=== PATIENT | female | born 1990 | race Caucasian/White ===

== ENCOUNTER → 2016-12-19 | Outpatient (CLI) | payer MEDICAID ==
[~2016-12-19] MED LIST: ACET-2303 PO; ACHD5005 PO; ACHYD1T PO; AMOX-355 PO; AMOX-358 PO; AMOX500C2 PO; CEFU250T PO; CEPH-507 PO; CEPH500C PO; CYCL10TA9 PO; DCS100C PO; DOCU100C37 PO; DOXY1TAB3 PO; FERR-57 PO; FRS325T PO; GFN600TCR PO; GUAI10SY4 GT; GUAI1TBM7 PO; HYDR-3714; HYDR-757 PO; HYOS0.1217 PO; IBP600T1 PO; IBP800T PO; IBUP-1780 PO; METR500T PO; METR500T21 PO; NAPR500T3 PO; NITR-65 PO; ONDA-42 SL; ONDAN4ODT PO; OSEL45CA PO; OSLT75C PO; OXYC-12 PO; OXYC-465 PO; OXYC-471 PO; PREN-37 PO; PREN1TAB14 PO; PREN1TAB25 PO; PREN1TAB39 PO; PRM25T PO; PS30T PO; RANI150T15 PO; SULF-222 PO; SULF1TAB38 PO; WEIGHT LOSS; ZLP10T PO
--- OUTSIDE RECORDS SUMMARY | 2016-12-19 09:34 | XMS REPORT | Continuity of Care Document ---
Author Author [facility] Organization [facility] Address Unknown Phone Unavailable Care Team Providers Care Mathematics Instructor Name Role Phone Batsheva Kilgore PCP [phone] Source Comments Some departments are not documenting in the electronic medical record. If you do not see the information that you expected, contact Release of Information in the Health Information Management department at [phone] for further assistance in locating additional records.[facility] Active Allergies and Adverse Reactions No Known Allergies Current Medications Prescription Sig. Disp. Refills Start End Date Status Date VIT Take by mouth. 12/07/19 Discontin CALC,IRON,FOLIC ( 17 ued VITAMIN PO) Active Problems Problem Noted Date Parotid neoplasm 09/28/2016 Most Recent Encounters Date Type Specialty Providers Description 12/20/2016 [facility] Adebayo Maya MD Parotid mass Encounter 12/07/2016 Hospital Radiology Adebayo Maya MD Encounter 12/07/2016 Office Visit Otolaryngology Adebayo Maya MD Parotid neoplasm (Primary Dx) 12/07/2016 Hospital Radiology Adebayo Maya MD Encounter 12/06/2016 Screening Form 12/04/2016 Orders Only Otolaryngology Adebayo Maya MD Parotid neoplasm (Primary Dx) 12/04/2016 Orders Only Otolaryngology Aliya Linares LPN Parotid neoplasm 10/10/2016 Orders Only Otolaryngology Adebayo Maya MD Parotid neoplasm (Primary Dx) 09/28/2016 [facility] Obstetrics Cali Vides MD Encounter 09/28/2016 Office Visit OtolaryngologAdebayo Dillon MD Parotid neoplasm (Primary Dx) 09/28/2016 Hospital Obstetrics Encounter 09/28/2016 Prep for Case Otolaryngology Adebayo Maya MD 09/26/2016 Ancillary Radiology Outpatient, Radiologist Diagnosis unknown Orders (Primary Dx) Social History Tobacco Use Types Packs/Day Years Used Date Former Smoker Smokeless Tobacco: Never Used Last Filed Vital Signs Vital Sign Reading Time Taken Blood Pressure 123/83 12/07/2016 3:37 PM [employer] Pulse 103 12/07/2016 3:37 PM [employer] Temperature - - Respiratory Rate - - Height 1.727 m (5' 8") 12/07/2016 3:37 PM [employer] Weight 137.893 kg (304 lb) 12/07/2016 3:37 PM [employer] Body Mass Index 46.23 12/07/2016 3:37 PM [employer] Oxygen Saturation 100% 09/28/2016 4:15 PM CDT Plan of Care Date Type Specialty Providers Description 12/20/2016 Surgery Adebayo Maya MD TOTAL PAROTIDECTOMY [address] [place] [address] [phone] (Fax) Health Maintenance Due Date Last Done Comments Physical (Comprehensive) 1999 Exam Hpv Vaccines (#1) 2003 Pertussis Vaccine 2003 Tetanus Vaccine 2009 Cervical Cancer Screening 2013 Influenza Vaccine 07/27/2016 Procedures from Last 3 Months Procedure Name Priority Date/Time Associated Diagnosis Comments PROCEDURES-SCAN 10/06/2016 Results for this 9:27 AM [employer] procedure are in the results section. PROCEDURES-SCAN 10/02/2016 Results for this 11:21 AM [employer] procedure are in the results section. PROCEDURES-SCAN 10/02/2016 Results for this 11:20 AM [employer] procedure are in the results section. 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 2.1.6 cm hypodense right thyroid nodule. Ultrasound could be obtained for further evaluation given size and patient age, if clinically indicated. Approved by Mu Perez M.D. on 12/07/2016 4:40 PM By my electronic signature, I attest that I have personally reviewed the images for this examination and formulated the interpretations and opinions expressed in this report Finalized by Srinivasan Mcneill M.D. on 12/07/2016 5:14 PM. Dictated by Mu Perez M.D. on 12/07/2016 3:[address] NECK W/CONTRAST Clinical Indication: Female, 26 years old.Parotid neoplasm. Technique: Multiple contiguous axial images were obtained through the neck follo wing the administration of Isovue IV contrast material. Post processing coronal and sagittal reconstruction images were made from the axial images. Comparison: None Findings: Brain and Orbits: Normal. Sinuses and Mastoids: Normal. Suprahyoid Neck: Normal nasal cavity, nasopharynx, oral cavity, oropharynx, parapharyngeal space, and retropharyngeal space. Infrahyoid Neck: Normal larynx, hypopharynx, and supraglottis. Lymph Nodes: There is mild prominence of a few scattered level 2 lymph nodes bilaterally, presumably reactive in nature. Parotid and Submandibular Glands: There is a large well-circumscribed heterogeneously enhancing mass within the central right parotid gland which measures 4.0cm transverse x 5.8 cm AP x 5.0 cm craniocaudal. The left parotid is normal in appearance. Thyroid: There is a hypodense thyroid nodule within the right inferior thyroid lobe which measures up to 1.6 cm. Vasculature: Normal. Osseous Structures: There is mild straightening of the normal cervical curvature. Thoracic inlet: Normal upper lungs and mediastinum. Procedure Note Interface, Radiant Results - Patti Dec 07, 2016 5:17 PM [address] CT NECK W/CONTRAST Clinical Indication: Female, 26 years old. Parotid neoplasm. Technique: Multiple contiguous axial images were obtained through the neck following the administration of Isovue IV contrast material. Post processing coronal and sagittal reconstruction images were made from the axial images. Comparison: None Findings: Brain and Orbits: Normal. Sinuses and Mastoids: Normal. Suprahyoid Neck: Normal nasal cavity, nasopharynx, oral cavity, oropharynx, parapharyngeal space, and retropharyngeal space. Infrahyoid Neck: Normal larynx, hypopharynx, and supraglottis. Lymph Nodes: There is mild prominence of a few scattered level 2 lymph nodes bilaterally, presumably reactive in nature. Parotid and Submandibular Glands: There is a large well-circumscribed heterogeneously enhancing mass within the central right parotid gland which measures 4.0 cm transverse x 5.8 cm AP x 5.0 cm craniocaudal. The left parotid is normal in appearance. Thyroid: There is a hypodense thyroid nodule within the right inferior thyroid lobe which measures up to 1.6 cm. Vasculature: Normal. Osseous Structures: There is mild straightening of the normal cervical curvature. Thoracic inlet: Normal upper lungs and mediastinum. IMPRESSION 1. 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 2. 1.6 cm hypodense right thyroid nodule. Ultrasound could be obtained for further evaluation given size and patient age, if clinically indicated. Approved by Mu Perez M.D. on 12/07/2016 4:40 PM By my electronic signature, I attest that I have personally reviewed the images for this examination and formulated the interpretations and opinions expressed in this report Finalized by Srinivasan Mcneill M.D. on 12/07/2016 5:14 PM. Dictated by Mu Perez M.D. on 12/07/2016 3:54 PM. CHEST 2 VIEWS (12/07/2016 3:00 PM) Impressions No acute cardiopulmonary abnormality. Approved by Bernadette Gamboa M.D. on 12/07/2016 4:17 PM By my electronic signature, I attest that I have personally reviewed the images for this examination and formulated the interpretations and opinions expressed in this report Finalized by Destiny Haines M.D. on 12/07/2016 4:30 PM. Dictated by Bernadette Gamboa M.D. on 12/07/2016 3:37 PM. Narrative CHEST 2 VIEWS Clinical Indication: Female, 26 years old. Parotid neoplasm Comparison: Same day CT neck Findings: The cardiac silhouette is within normal limits of size. There is no pulmonary vascular congestion. No pneumothorax, consolidating pneumonia or pleural effusion is identified. Procedure Note Interface, Radiant Results - Patti Dec 07, 2016 4:33 PM BOX [employer] CHEST 2 VIEWS Clinical Indication: Female, 26 years old. Parotid neoplasm Comparison: Same day CT neck Findings: The cardiac silhouette is within normal limits of size. There is no pulmonary vascular congestion. No pneumothorax, consolidating pneumonia or pleural effusion is identified. IMPRESSION No acute cardiopulmonary abnormality. Approved by Bernadette Gamboa M.D. on 12/07/2016 4:17 PM By my electronic signature, I attest that I have personally reviewed the images for this examination and formulated the interpretations and opinions expressed in this report Finalized by Destiny Haines M.D. on 12/07/2016 4:30 PM. Dictated by Bernadette Gamboa M.D. on 12/07/2016 3:37 PM. PROCEDURES-SCAN (10/06/2016 9:27 AM) Narrative Ordered by an unspecified provider. PROCEDURES-SCAN (10/02/2016 11:21 AM) Narrative Ordered by an unspecified provider. PROCEDURES-SCAN (10/02/2016 11:20 AM) Narrative Ordered by an unspecified provider. FINE NEEDLE ASPIRATE (FNA) (09/28/2016 3:30 PM) Component Value Range Cytology [facility] [email or web address] Flor Whyte MD, Director Cytopathology Department of Pathology and Laboratory Medicine [address] [place] [id number] Surgical Pathology Office: [phone] CYTOLOGY REPORT NAME: MARICEL VIVAR SURG PATH #: [id number] MR #: [id number] ALT ID #: [id number] #: [id number] LOCATION: [facility] [place] DATE OF PROCEDURE: 09/28/2016 AGE: 26 SEX: F DATE RECEIVED: 09/28/2016 : 1990 TIME RECEIVED: 15:30 PHYSICIAN: ADEBAYO MAYA DATE OF REPORT: 10/02/2016 COPY TO: DATE OF PRINTIN10/02/2016 Material Received: A: FNA Neck Mass-right paratid History: 26 year old woman with a right parotid mass. Gross Description: (3 pap, 3 dq, 1 Cell Block) FNA procedure was performed by the pathologist, FABIANA/SHER, and rapid determination of adequacy was performed by the pathologist, FABIANA/AF, on Diff-Quik stained slide(s). Passes 1 and 2 were adequate for evaluation. Pass three was not adequate for evaluation. ################################################## ###################### Final Diagnosis: A. Neck Mass-right parotid, FNA: Pleomorphic adenoma. Comment: FNA Procedure Notes: The FNA procedure was performed by Dr. Whyte and Dr. Lange. The staff pathologist, Dr. Whyte was present through the ojeda portions of the procedure. Prior to beginning the procedure, two of the patient's identifiers (medical record number, date of , or patient name) were confirmed in addition to the proposed site of the FNA. The FNA procedure was explained to the patient, and with her informed consent a limited physical examination and the FNA procedure were performed. 3 FNAs were performed on an approximately 6 cm mass using separate, sterile, 25 swg needles. The procedure was well tolerated and without complications. Estimated blood loss was negligible. Immediate evaluation of the air-dried, Diff-Quik stained slides showed smears that were adequate. The FNA adequacy assessment was performed by the staff pathologist Dr. Whyte: First pass - adequate; second pass adequate; third pass inadequate. Preliminary interpretation: Pleomorphic adenoma. The preliminary result was reported to Dr. Maya on site at 13:42 on 09/28/[address] Whyte. The Papanicolaou stained smears and cell block sections showed similar features. Attestation: By this signature, I attest that I have personally formulated the final interpretation expressed in this report and that the above diagnosis is based upon my examination of the slides and/or other material indicated in this report. +++Electronically Signed Out By+++ af/10/02/2016 Interpreted by: Flor Whyte MD, Attending Physician Bret Lange D.O. Fellow DIRECT EXAM (WET PREP) (09/28/2016 3:16 PM) Component Value Range Battery Name DIRECT EXAM,WET PREP Specimen Description VAGINAL Special Requests NONE Direct Exam NO YEAST SEEN NO CLUE CELLS SEEN NO TRICHOMONAS SEEN MANY NEUTROPHILS Report Status FINAL 09/28/2016 Specimen Vaginal PROTEIN/CR RATIO,UR RAN (09/28/2016 3:10 PM) Component Value Range Protein, Random 54 MG/DL Creatinine, Random 171 MG/DL Protein/CR ratio 0.3 URIC ACID (09/28/2016 3:10 PM) Component Value Range Uric Acid 2.4 2.0-7.0 MG/DL LDH-LACTATE DEHYDROGENASE (09/28/2016 3:10 PM) Component Value Range Lactate Dehydrogenase 172 100-210 U/L URINALYSIS, MICROSCOPIC (09/28/2016 3:10 PM) Component Value Range WBCs,UA 0-2 0-2 /HPF RBCs,UA 0-2 0-3 /HPF MucousUA TRACE Squamous Epithelial Cells 0-2 0-5 Calcium Oxalate Crystals MANY Specimen Urine URINALYSIS DIPSTICK (09/28/2016 3:10 PM) Component Value Range Color,UA YELLOW Turbidity,UA 1+ (A) CLEAR-CLEAR Specific Lincoln-Urine 1.027 1.003-1.035 pH,UA 5.0 5.0-8.0 Protein,UA 1+ (A) NEG-NEG Glucose,UA 2+ (A) NEG-NEG Ketones,UA NEG NEG-NEG Bilirubin,UA NEG NEG-NEG Blood,UA NEG NEG-NEG Urobilinogen,UA NORMAL NORM-NORMAL Nitrite,UA NEG NEG-NEG Leukocytes,UA NEG NEG-NEG Urine Ascorbic Acid, UA NEG NEG-NEG Specimen Urine BASIC METABOLIC PANEL (09/28/2016 3:10 PM) Component Value Range Sodium 134 (L) 137-147 MMOL/L Potassium 3.9 3.5-5.1 MMOL/L Chloride 103 98-110 MMOL/L CO2 23 21-30 MMOL/L Anion Gap 8 3-12 Glucose 92 70-100 MG/DL Blood Urea Nitrogen 8 7-25 MG/DL Creatinine 0.38 (L) 0.4-1.00 MG/DL Calcium 9.2 8.5-10.6 MG/DL eGFR Non >60Comment: >60 mL/min The eGFR is not validated for use in drug dosing adjustments. Continue to use estimated creatinine clearance per dosing reference text. Please contact the Clinical Pharmacist for questions. eGFR >60Comment: >60 mL/min The eGFR is not validated for use in drug dosing adjustments. Continue to use estimated creatinine clearance per dosing reference text. Please contact the Clinical Pharmacist for questions. Specimen Blood FREE T4 (FREE THYROXINE) ONLY (09/28/2016 3:10 PM) Component Value Range T4-Free 0.8 0.6-1.6 NG/DL Specimen Blood THYROID STIMULATING HORMONE-TSH (09/28/2016 3:10 PM) Component Value Range TSH 1.843 0.35-5.00 MCU/ML Specimen Blood CBC (09/28/2016 3:10 PM) Component Value Range White Blood Cells 13.8 (H) 4.5-11.0 K/UL RBC 4.33 4.0-5.0 M/UL Hemoglobin 11.4 (L) 12.0-15.0 GM/DL Hematocrit 34.3 (L) 36-45 % MCV 79.2 (L) 80-100 FL MCH 26.4 26-34 PG MCHC 33.4 32.0-36.0 G/DL RDW 13.8 11-15 % Platelet Count 241 150-400 K/UL MPV 9.4 7-11 FL Specimen Blood CULTURE-URINE W/SENSITIVITY (09/28/2016 3:10 PM) Component Value Range Battery Name URINE CULTURE Specimen Description URINE, STRAIGHT CATH Special Requests NONE Culture NO GROWTH Report Status FINAL 09/29/2016 Specimen Urine - Urine Straight Catheter CHLAM/NG PCR SWAB (09/28/2016 3:10 PM) Component Value Range Chlamydia Trachomatis NEGComment: NEG-NEG Probe The test method is amplified DNA PCR using [employer]. Please correlate results with the clinical status of the patient. N.Gonorrhea PCR NEG NEG-NEG Specimen Cervix POC GLUCOSE (09/28/2016 3:06 PM) Component Value Range Glucose, POC 79 70-100 MG/DL BLOOD BANK SAMPLE HOLD (09/28/2016 2:30 PM) Component Value Range BB Sample hold IN LAB
[2016-12-19 09:45] LABS: MEAN PLATELET VOLUME 10.2 FL (7.4-10.4); RED BLOOD COUNT 5.22 10^6/uL (4.35-5.85); WHITE BLOOD COUNT 7.2 10^3/uL (4.3-11.0)
[2016-12-19 10:02] LABS: INR 1.1 (0.8-1.4); PROTHROMBIN TIME PATIENT 13.7 SEC (12.2-14.7)
[2016-12-19 10:06] LABS: ALANINE AMINOTRANSFERASE 22 U/L (0-55); ANION GAP 9 MMOL/L (5-14); ASPARTATE AMINO TRANSFERASE 20 U/L (5-34); BILIRUBIN,TOTAL 0.3 MG/DL (0.1-1.0); BLOOD UREA NITROGEN 11 MG/DL (7-18); BUN/CREATININE RATIO 14; CALCIUM 9.3 MG/DL (8.5-10.1); CARBON DIOXIDE 24 MMOL/L (21-32); CHLORIDE 104 MMOL/L (98-107); CREATININE SERUM 0.78 MG/DL (0.60-1.30); GFR ESTIMATED > 60; GLUCOSE 90 MG/DL (70-105); POTASSIUM 3.9 MMOL/L (3.6-5.0); SODIUM 137 MMOL/L (135-145); TOTAL PROTEIN 7.1 G/DL (6.4-8.2)
== END ==
LOC: LAB 09:30
PROVIDERS: ATTEND Otolaryngology
DX: D49.0 Neoplasm of unspecified behavior of digestive system (principal)
CPT/HCPCS: 36415; 80053; 85027; 85610; 85730

== ENCOUNTER 2017-02-28 19:43 | Emergency (ER) | payer MEDICAID ==
[~2017-02-28] VITALS: Ht 172.7 cm; Wt 144.7 kg
--- NOTE | 2017-02-28 20:09 | ED EENT ---
History of Present Illness General Chief Complaint: Oral/Throat Problems Stated Complaint: FEVER,VOMITING Nursing Triage Note: C/O SORE THROAT WITH VOMITING Source: patient Exam Limitations: no limitations History of Present Illness Time seen by provider: 20:07 Initial Comments To ER with sore throat, vomiting, fever, stomach cramping since this morning. She is unable to eat or drink much due to the vomiting. She does also have a sore throat. Her son recently tested positive for strep and her is ill with similar symptoms. Timing/Duration: abrupt Severity: moderate Location: throat Associated Symptoms: No cough, fever, sore throat Allergies and Home Medications Allergies Coded Allergies: No Known Drug Allergies (Unverified , 07/11/10) Home Medications No Active Prescriptions or Reported Meds Review of Systems Constitutional: see HPI, chills, fever Eyes: No Symptoms Reported Ears: No Symptoms Reported Nose: no symptoms reported Mouth: no symptoms reported Throat: see HPI Respiratory: no symptoms reported Cardiovascular: no symptoms reported Musculoskeletal: no symptoms reported Skin: no symptoms reported Neurological: No Symptoms Reported Hematologic/Lymphatic: No Symptoms Reported Immunological/Allergic: no symptoms reported (all) Past Kgaitnn-Mjfjhl-Fqhhmj Hx Patient Social History Alcohol Use: Denies Use Recreational Drug Use: No Smoking Status: Never a Smoker Type Used: Cigarettes Recent Foreign Travel: No Contact w/Someone Who Travel: No Recent Infectious Disease Expo: No Recent Hopitalizations: No Immunizations Up To Date Tetanus Booster (TDap): Unknown PED Vaccines UTD: No Date of Influenza Vaccine: Aug 26, 2012 Seasonal Allergies Seasonal Allergies: No Surgeries HX Surgeries: Yes (LEFT SHOULDER 04/09 AND 2008, X 3) Surgeries: Adenoidectomy, Appendectomy, Section, Orthopedic, Tonsillectomy Respiratory Hx Respiratory Disorders: No Cardiovascular Hx Cardiac Disorders: No Neurological Hx Neurological Disorders: No Reproductive System Hx Reproductive Disorders: No Sexually Transmitted Disease: Yes (CHLAMYDIA 2009, Gonnerhea 2011, beginning of preg ) HIV/AIDS: No Female Reproductive Disorders: Denies Genitourinary Hx Genitourinary Disorders: No Gastrointestinal Hx Gastrointestinal Disorders: No Musculoskeletal Hx Musculoskeletal Disorders: Yes (LEFT SHOULDER PROBLEMS) Musculoskeletal Disorders: Arthritis Endocrine Hx Endocrine Disorders: No HEENT HX ENT Disorders: Yes (mass on rt cheek/jaw) Cancer Hx Cancer: No Psychosocial Hx Psychiatric Problems: No Integumentary HX Skin/Integumentary Disorder: No Blood Transfusions Hx Blood Disorders: No Adverse Reaction to a Blood Tr: No Family Medical History Significant Family History: No Pertinent Family Hx Family Medial History: Diabetes mellitus 19 FATHER 19 MOTHER Hypertension 19 MOTHER Physical Exam Vital Signs Vital Sign - Last 12Hours 02/28/17 20:01 Temp 100.7 Pulse 145 Resp 18 B/P (MAP) 112/96 Pulse Ox 96 O2 Delivery Room Air General Appearance: WD/WN, no apparent distress Eyes: bilateral eye EOMI, bilateral eye PERRL, bilateral eye normal inspection Ears: bilateral ear TM normal, bilateral ear auricle normal, bilateral ear canal normal Mouth/Throat: normal mouth inspection, other (Pharyngeal erythema. There is a healing incision over the right parotid gland without surrounding erythema) Neck: non-tender, full range of motion Cardiovascular: no murmur, tachycardia Gastrointestinal: normal bowel sounds, non tender, soft Neurologic/Psychiatric: alert, normal mood/affect, oriented x 3 Skin: normal color, warm/dry Progress/Results/Core Measures Results/Orders Lab Results Laboratory Tests Test 02/28/17 20:05 02/28/17 20:08 Range/Units White Blood Count 17.2 H 4.3-11.0 10^3/uL Red Blood Count 5.55 4.35-5.85 10^6/uL Hemoglobin 14.1 11.5-16.0 G/DL Hematocrit 43 35-52 % Mean Corpuscular Volume 77 L 80-99 FL Mean Corpuscular Hemoglobin 25 25-34 PG Mean Corpuscular Hemoglobin Concent 33 32-36 G/DL Red Cell Distribution Width 15.2 H 10.0-14.5 % Platelet Count 383 130-400 10^3/uL Mean Platelet Volume 10.4 7.4-10.4 FL Neutrophils (%) (Auto) 83 H 42-75 % Lymphocytes (%) (Auto) 9 L 12-44 % Monocytes (%) (Auto) 7 0-12 % Eosinophils (%) (Auto) 1 0-10 % Basophils (%) (Auto) 0 0-10 % Neutrophils # (Auto) 14.3 H 1.8-7.8 X 10^3 Lymphocytes # (Auto) 1.6 1.0-4.0 X 10^3 Monocytes # (Auto) 1.2 H 0.0-1.0 X 10^3 Eosinophils # (Auto) 0.2 0.0-0.3 10^3/uL Basophils # (Auto) 0.1 0.0-0.1 10^3/uL Group A Streptococcus Screen POSITIVE H NEGATIVE Micro Results Microbiology 02/28/17 Influenza Types A,B Antigen (AVILA) - Final, Complete My Orders Orders - LEEANN CHAVEZ APRN Cbc With Automated Diff (02/28/17 20:06) Basic Metabolic Panel (02/28/17 20:06) Rapid Strep A Screen (02/28/17 20:06) Influenza A And B Antigens (02/28/17 20:06) Saline Lock/Iv-Start (02/28/17 20:06) Ns Iv 1000 Ml (Sodium Chloride 0.9%) (02/28/17 20:15) Ondansetron Injection (Zofran Injectio (02/28/17 20:15) Ibuprofen Tablet (Motrin Tablet) (02/28/17 20:15) Hcg,Qualitative Serum (02/28/17 20:06) Manual Differential (02/28/17 20:05) Ua Culture If Indicated (02/28/17 20:26) Penicillin G Proc/Luis 1.2 Mu (Bicillin (02/28/17 20:45) Rx-Ondansetron Po (Rx-Zofran Po) (02/28/17 20:37) Medications Given in ED Current Medications Medications Dose Ordered Sig/Zeeshan Route Start Time Stop Time Status Last Admin Dose Admin Ibuprofen 800 mg ONCE ONCE PO 02/28/17 20:15 02/28/17 20:16 DC 02/28/17 20:12 800 MG Ondansetron HCl 4 mg ONCE ONCE IVP 02/28/17 20:15 02/28/17 20:16 DC 02/28/17 20:12 4 MG Vital Signs/I&O Vital Sign - Last 12Hours 02/28/17 20:01 Temp 100.7 Pulse 145 Resp 18 B/P (MAP) 112/96 Pulse Ox 96 O2 Delivery Room Air Blood Pressure Mean: 101 Departure Communication Progress Notes 2035-in reviewing the patient's previous hospitalizations it was noted that she was tachycardic with a heart rate from 95-115 consistently on multiple visits. Impression Impression: Primary Impression: Streptococcal sore throat Disposition: HOME, SELF-CARE Condition: Stable (4) Departure-Patient Inst. Decision time for Depature: 20:36 Referrals: NO,LOCAL PHYSICIAN (PCP/Family) Primary Care Physician Patient Instructions: Strep Throat (DC) Add. Discharge Instructions: 1. Tylenol and Motrin for fever and pain 2. Drink plenty of fluids 3. Nausea medication as needed 4. Follow-up with your doctor later this week 5. Return to ER for any worsening such as high fever or any other worsening symptoms All discharge instructions reviewed with patient and/or family. Voiced understanding. Scripts No Active Prescriptions or Reported Meds Copy Copies To 1: JAKE AGUIAR MD, PETER J APRN Feb 28, 2017 20:09
[2017-02-28 20:12] LABS: BASOPHILS # (AUTO) 0.1 10^3/uL (0.0-0.1); BASOPHILS % (AUTO) 0 % (0-10); EOSINOPHILS # (AUTO) 0.2 10^3/uL (0.0-0.3); EOSINOPHILS % (AUTO) 1 % (0-10); LYMPHOCYTES # (AUTO) 1.6 X 10^3 (1.0-4.0); LYMPHOCYTES % (AUTO) 9 % (12-44); MEAN CORPUSCULAR HEMOGLOBIN 25 PG (25-34); MEAN CORPUSCULAR HGB CONC 33 G/DL (32-36); MEAN CORPUSCULAR VOLUME 77 FL (80-99); MEAN PLATELET VOLUME 10.4 FL (7.4-10.4); MONOCYTES # (AUTO) 1.2 X 10^3 (0.0-1.0); MONOCYTES % (AUTO) 7 % (0-12); NEUTROPHILS # (AUTO) 14.3 X 10^3 (1.8-7.8); NEUTROPHILS % (AUTO) 83 % (42-75); PLATELET COUNT 383 10^3/uL (130-400); RED BLOOD COUNT 5.55 10^6/uL (4.35-5.85); RED CELL DISTRIBUTION WIDTH 15.2 % (10.0-14.5); WHITE BLOOD COUNT 17.2 10^3/uL (4.3-11.0)
[2017-02-28] MEDS ORDERED: IBUPROFEN 800 MG (MOTRIN) TAB PO ONE (20:15)
[2017-02-28] MEDS ORDERED: ONDANSETRON 4 MG/2 ML (SDV) Z0FRAN IVP ONE (20:15)
[2017-02-28] MEDS ORDERED: NS IV 1000 ML 1,000 ML IV SCH (20:15)
[2017-02-28] MEDS ORDERED: RX-ONDANSETRON 4 MG ODT (ZOFRAN) PPK #4 PO STA (20:37)
[2017-02-28] MEDS ORDERED: PEN G PROC/BENZATH 1.2 M UNITS (BICILLIN C-R) SYR IM ONE (20:45)
[2017-02-28 20:46] LABS: ANION GAP 10 MMOL/L (5-14); BAND NEUTROPHILS 0 %; BASOPHILS % (MANUAL) 0 %; BLOOD UREA NITROGEN 16 MG/DL (7-18); BUN/CREATININE RATIO 19; CALCIUM 9.7 MG/DL (8.5-10.1); CARBON DIOXIDE 24 MMOL/L (21-32); CHLORIDE 106 MMOL/L (98-107); CREATININE SERUM 0.84 MG/DL (0.60-1.30); EOSINOPHILS % (MANUAL) 0 %; GFR ESTIMATED > 60; GLUCOSE 106 MG/DL (70-105); LYMPHOCYTES % (MANUAL) 11 %; NEUTROPHILS % (MANUAL) 87 %; POTASSIUM 3.9 MMOL/L (3.6-5.0); SODIUM 140 MMOL/L (135-145)
[2017-02-28 21:02] VITALS: BP 108/94
--- OUTSIDE RECORDS SUMMARY | 2017-04-01 18:13 | XMS REPORT | Continuity of Care Document ---
Author Author [facility] Organization [facility] Address Unknown Phone Unavailable Care Team Providers Care Child And Adolescent Therapist Name Role Phone Batsheva Kilgore PCP [phone] Source Comments Some departments are not documenting in the electronic medical record. If you do not see the information that you expected, contact Release of Information in the Health Information Management department at [phone] for further assistance in locating additional records.[facility] Active Allergies and Adverse Reactions No Known Allergies Current Medications Prescription Sig. Disp. Refills Start End Date Status Date VIT Take 1 Tab by mouth. Active CALC,IRON,FOLIC ( VITAMIN PO) acetaminophen (TYLENOL) Take 2 Tabs by mouth 60 Tab 3 12/21/19 Active 325 mg tablet every 4 hours as needed. 17 HYDROcodone/acetaminophen Take 1-2 Tabs by mouth 40 Tab 0 12/21/19 Active (NORCO) 5/325 mg tablet every 6 hours as needed 17 for Pain Earliest Fill Date: 12/21/16 ofloxacin(+) (FLOXIN) 0.3 Instill 4 drops into the 10 mL 0 12/21/19 Active % ophthalmic solution right EAR twice a day 17 for 5 days. 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 Parotid mass 12/20/2016 Parotid neoplasm 09/28/2016 Social History Tobacco Use Types Packs/Day Years Used Date Former Smoker Smokeless Tobacco: Never Used Last Filed Vital Signs Vital Sign Reading Time Taken Blood Pressure 126/88 12/26/2016 9:53 AM PLASTIC CUTTER Pulse 96 12/26/2016 9:53 AM PLASTIC CUTTER Temperature 36.9 C (98.4 F) 12/21/2016 7:00 AM PLASTIC CUTTER Respiratory Rate - - Height 1.727 m (5' 8") 12/26/2016 9:53 AM PLASTIC CUTTER Weight 137.712 kg (303 lb 9.6 12/26/2016 9:53 AM PLASTIC CUTTER oz) Body Mass Index 46.17 12/26/2016 9:53 AM PLASTIC CUTTER Oxygen Saturation 99% 12/21/2016 7:00 AM PLASTIC CUTTER Plan of Care Health Maintenance Due Date Last Done Comments Physical (Comprehensive) 1999 Exam Hpv Vaccines (#1) 2003 Pertussis Vaccine 2003 Tetanus Vaccine 2009 Cervical Cancer Screening 2013 Influenza Vaccine 07/27/2017 Results from Last 3 Months * PATHOLOGY INTEROPERATIVE REPORT SCAN (01/03/2017 1:51 PM) Narrative Ordered by an unspecified provider.
--- OUTSIDE RECORDS SUMMARY | 2017-04-01 18:14 | XMS REPORT | Continuity of Care Document ---
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 detection by automated test strip 1+ NEGATIVE Urine nitrite detection by test strip NEGATIVE NEGATIVE Urine total bilirubin detection by test strip 1+ NEGATIVE Urine urobilinogen measurement by automated test strip (mass/volume) 4 mg/dL NORMAL Urine leukocyte esterase detection by dipstick 3+ NEGATIVE Automated urine sediment erythrocyte count by microscopy (number/high power field) [HPF] NRG Automated urine sediment leukocyte count by microscopy (number/high power field ) [HPF] NRG Bacteria detection in urine sediment by light microscopy MODERATE NRG Squamous epithelial cells detection in urine sediment by light microscopy 25-50 NRG Crystals detection in urine sediment by light microscopy NONE NRG Casts detection in urine sediment by light microscopy NONE NRG Mucus detection in urine sediment by light microscopy NEGATIVE NRG Complete urinalysis with reflex to culture NO NRG Comprehensive metabolic panel - 10/25/16 13:35 Serum or plasma sodium measurement (moles/volume) 134 mmol/ L 135-145 Serum or plasma potassium measurement (moles/volume) 3.7 mmol/L 3.6-5.0 Serum or plasma chloride measurement (moles/volume) 105 mmol /L 98-107 Carbon dioxide 21 mmol/L 21-32 Serum or plasma anion gap determination (moles/volume) 8 mmol/L 5-14 Serum or plasma urea nitrogen measurement (mass/volume) 5 mg /dL 7-18 Serum or plasma creatinine measurement (mass/volume) 0.56 mg /dL 0.60-1.30 Serum or plasma urea nitrogen/creatinine mass ratio 9 NRG Serum or plasma creatinine measurement with calculation of estimated glomerular filtration rate > NRG Serum or plasma glucose measurement (mass/volume) 96 mg/dL 70-105 Serum or plasma calcium measurement (mass/volume) 9.1 mg/dL 8.5-10.1 Serum or plasma total bilirubin measurement (mass/volume) 0.5 mg/dL 0.1-1.0 Serum or plasma alkaline phosphatase measurement (enzymatic activity/volume) 139 U/L 40-136 Serum or plasma aspartate aminotransferase measurement (enzymatic activity/ volume) 15 U/L 5-34 Serum or plasma alanine aminotransferase measurement (enzymatic activity/volume ) 10 U/L 0-55 Serum or plasma protein measurement (mass/volume) 6.2 g/dL 6.4-8.2 Serum or plasma albumin measurement (mass/volume) 3.0 g/dL 3.2-4.5 Serum or plasma uric acid measurement (mass/volume) - 10/25/16 13:35 Serum or plasma uric acid measurement (mass/volume) 3.0 mg/ dL 2.6-7.2 Lactate dehydrogenase 1 [enzymatic activity/volume] in serum or plasma - 13:35 Lactate dehydrogenase 1 [enzymatic activity/volume] in serum or plasma 153 U/L 125-220 Urine protein/creatinine mass ratio - 10/25/16 13:35 Urine protein measurement (mass/volume) 47 mg/dL 6-12 Urine creatinine measurement (mass/volume) 179 mg/dL 30-125 Urine protein/creatinine mass ratio 0.26 NRG Bacterial urine culture - 10/25/16 13:35 URINE CULTURE RESULTS <10,000/ML NRG Streptococcus agalactiae detection by organism specific culture - 10/25/16 17: 50 Complete blood count (CBC) with automated white blood cell (WBC) differential - 10/26/16 08:00 Blood leukocytes automated count (number/volume) 11.1 10*3/ uL 4.3-11.0 Blood erythrocytes automated count (number/volume) 4.06 10*6 /uL 4.35-5.85 Venous blood hemoglobin measurement (mass/volume) 10.2 g/dL 11.5-16.0 Blood hematocrit (volume fraction) 32 % 35-52 Automated erythrocyte mean corpuscular volume 78 [foz_us] 80-99 Automated erythrocyte mean corpuscular hemoglobin (mass per erythrocyte) 25 pg 25-34 Automated erythrocyte mean corpuscular hemoglobin concentration measurement ( mass/volume) 32 g/dL 32-36 Automated erythrocyte distribution width ratio 14.5 % 10.0-14.5 Automated blood platelet count (count/volume) 224 10*3/uL 130-400 Automated blood platelet mean volume measurement 11.3 [foz_ us] 7.4-10.4 Automated blood neutrophils/100 leukocytes 82 % 42-75 Automated blood lymphocytes/100 leukocytes 13 % 12-44 Blood monocytes/100 leukocytes 5 % 0-12 Automated blood eosinophils/100 leukocytes 1 % 0-10 Automated blood basophils/100 leukocytes 0 % 0-10 Blood neutrophils automated count (number/volume) 9.0 10*3 1.8-7.8 Blood lymphocytes automated count (number/volume) 1.4 10*3 1.0-4.0 Blood monocytes automated count (number/volume) 0.5 10*3 0.0-1.0 Automated eosinophil count 0.1 10*3/uL 0.0-0.3 Automated blood basophil count (count/volume) 0.0 10*3/uL 0.0-0.1 Urine protein/creatinine mass ratio - 10/26/16 08:00 Urine protein measurement (mass/volume) 14 mg/dL 6-12 Urine creatinine measurement (mass/volume) 50 mg/dL 30-125 Urine protein/creatinine mass ratio 0.28 NR Comprehensive metabolic panel - 10/26/16 08:00 Serum or plasma sodium measurement (moles/volume) 137 mmol/ L 135-145 Serum or plasma potassium measurement (moles/volume) 3.8 mmol/L 3.6-5.0 Serum or plasma chloride measurement (moles/volume) 107 mmol /L 98-107 Carbon dioxide 19 mmol/L 21-32 Serum or plasma anion gap determination (moles/volume) 11 mmol/L 5-14 Serum or plasma urea nitrogen measurement (mass/volume) 4 mg /dL 7-18 Serum or plasma creatinine measurement (mass/volume) 0.59 mg /dL 0.60-1.30 Serum or plasma urea nitrogen/creatinine mass ratio 7 NRG Serum or plasma creatinine measurement with calculation of estimated glomerular filtration rate > NRG Serum or plasma glucose measurement (mass/volume) 127 mg/dL 70-105 Serum or plasma calcium measurement (mass/volume) 9.1 mg/dL 8.5-10.1 Serum or plasma total bilirubin measurement (mass/volume) 0.4 mg/dL 0.1-1.0 Serum or plasma alkaline phosphatase measurement (enzymatic activity/volume) 138 U/L 40-136 Serum or plasma aspartate aminotransferase measurement (enzymatic activity/ volume) 17 U/L 5-34 Serum or plasma alanine aminotransferase measurement (enzymatic activity/volume ) 8 U/L 0-55 Serum or plasma protein measurement (mass/volume) 6.3 g/dL 6.4-8.2 Serum or plasma albumin measurement (mass/volume) 2.9 g/dL 3.2-4.5 Lactate dehydrogenase 1 [enzymatic activity/volume] in serum or plasma - 08:00 Lactate dehydrogenase 1 [enzymatic activity/volume] in serum or plasma 147 U/L 125-220 Urine protein/creatinine mass ratio - 10/27/16 08:51 Urine protein measurement (mass/volume) 60 mg/dL 6-12 Urine creatinine measurement (mass/volume) 160 mg/dL 30-125 Urine protein/creatinine mass ratio 0.38 NRG Complete blood count (CBC) with automated white blood cell (WBC) differential - 10/27/16 13:44 Blood leukocytes automated count (number/volume) 12.8 10*3/ uL 4.3-11.0 Blood erythrocytes automated count (number/volume) 3.85 10*6 /uL 4.35-5.85 Venous blood hemoglobin measurement (mass/volume) 9.7 g/dL 11.5-16.0 Blood hematocrit (volume fraction) 30 % 35-52 Automated erythrocyte mean corpuscular volume 78 [foz_us] 80-99 Automated erythrocyte mean corpuscular hemoglobin (mass per erythrocyte) 25 pg 25-34 Automated erythrocyte mean corpuscular hemoglobin concentration measurement ( mass/volume) 32 g/dL 32-36 Automated erythrocyte distribution width ratio 14.5 % 10.0-14.5 Automated blood platelet count (count/volume) 260 10*3/uL 130-400 Automated blood platelet mean volume measurement 10.7 [foz_ us] 7.4-10.4 Automated blood neutrophils/100 leukocytes 68 % 42-75 Automated blood lymphocytes/100 leukocytes 21 % 12-44 Blood monocytes/100 leukocytes 11 % 0-12 Automated blood eosinophils/100 leukocytes 1 % 0-10 Automated blood basophils/100 leukocytes 0 % 0-10 Blood neutrophils automated count (number/volume) 8.7 10*3 1.8-7.8 Blood lymphocytes automated count (number/volume) 2.7 10*3 1.0-4.0 Blood monocytes automated count (number/volume) 1.4 10*3 0.0-1.0 Automated eosinophil count 0.1 10*3/uL 0.0-0.3 Automated blood basophil count (count/volume) 0.0 10*3/uL 0.0-0.1 Comprehensive metabolic panel - 10/27/16 13:44 Serum or plasma sodium measurement (moles/volume) 136 mmol/ L 135-145 Serum or plasma potassium measurement (moles/volume) 3.3 mmol/L 3.6-5.0 Serum or plasma chloride measurement (moles/volume) 107 mmol /L 98-107 Carbon dioxide 20 mmol/L 21-32 Serum or plasma anion gap determination (moles/volume) 9 mmol/L 5-14 Serum or plasma urea nitrogen measurement (mass/volume) 7 mg /dL 7-18 Serum or plasma creatinine measurement (mass/volume) 0.54 mg /dL 0.60-1.30 Serum or plasma urea nitrogen/creatinine mass ratio 13 NRG Serum or plasma creatinine measurement with calculation of estimated glomerular filtration rate > NRG Serum or plasma glucose measurement (mass/volume) 100 mg/dL 70-105 Serum or plasma calcium measurement (mass/volume) 8.6 mg/dL 8.5-10.1 Serum or plasma total bilirubin measurement (mass/volume) 0.4 mg/dL 0.1-1.0 Serum or plasma alkaline phosphatase measurement (enzymatic activity/volume) 119 U/L 40-136 Serum or plasma aspartate aminotransferase measurement (enzymatic activity/ volume) 17 U/L 5-34 Serum or plasma alanine aminotransferase measurement (enzymatic activity/volume ) 12 U/L 0-55 Serum or plasma protein measurement (mass/volume) 6.1 g/dL 6.4-8.2 Serum or plasma albumin measurement (mass/volume) 3.0 g/dL 3.2-4.5 Lactate dehydrogenase 1 [enzymatic activity/volume] in serum or plasma - 13:44 Lactate dehydrogenase 1 [enzymatic activity/volume] in serum or plasma 146 U/L 125-220 Blood CBC with ordered manual differential panel - 10/28/16 19:35 Blood leukocytes automated count (number/volume) 10.4 10*3/ uL 4.3-11.0 Blood erythrocytes automated count (number/volume) 3.82 10*6 /uL 4.35-5.85 Venous blood hemoglobin measurement (mass/volume) 9.6 g/dL 11.5-16.0 Blood hematocrit (volume fraction) 30 % 35-52 Automated erythrocyte mean corpuscular volume 79 [foz_us] 80-99 Automated erythrocyte mean corpuscular hemoglobin (mass per erythrocyte) 25 pg 25-34 Automated erythrocyte mean corpuscular hemoglobin concentration measurement ( mass/volume) 32 g/dL 32-36 Automated erythrocyte distribution width ratio 14.8 % 10.0-14.5 Automated blood platelet count (count/volume) 230 10*3/uL 130-400 Automated blood platelet mean volume measurement 11.0 [foz_ us] 7.4-10.4 Automated blood neutrophils/100 leukocytes 61 % 42-75 Automated blood lymphocytes/100 leukocytes 25 % 12-44 Blood monocytes/100 leukocytes 12 % NRG Automated blood eosinophils/100 leukocytes 2 % 0-10 Automated blood basophils/100 leukocytes 0 % 0-10 Blood neutrophils automated count (number/volume) 6.3 10*3 1.8-7.8 Blood lymphocytes automated count (number/volume) 2.6 10*3 1.0-4.0 Blood monocytes automated count (number/volume) 1.3 10*3 0.0-1.0 Automated eosinophil count 0.2 10*3/uL 0.0-0.3 Automated blood basophil count (count/volume) 0.0 10*3/uL 0.0-0.1 Manual blood segmented neutrophils/100 leukocytes 56 % NRG Manual blood lymphocytes/100 leukocytes 30 % NRG Manual eosinophils/100 leukocytes in nose 2 % NRG Blood polychromasia detection by light microscopy SLIGHT NRG Blood anisocytosis detection by light microscopy SLIGHT NRG Blood hypochromia detection by light microscopy SLIGHT NRG Comprehensive metabolic panel - 10/28/16 19:35 Serum or plasma sodium measurement (moles/volume) 136 mmol/ L 135-145 Serum or plasma potassium measurement (moles/volume) 3.6 mmol/L 3.6-5.0 Serum or plasma chloride measurement (moles/volume) 107 mmol /L 98-107 Carbon dioxide 22 mmol/L 21-32 Serum or plasma anion gap determination (moles/volume) 7 mmol/L 5-14 Serum or plasma urea nitrogen measurement (mass/volume) 5 mg /dL 7-18 Serum or plasma creatinine measurement (mass/volume) 0.55 mg /dL 0.60-1.30 Serum or plasma urea nitrogen/creatinine mass ratio 9 NRG Serum or plasma creatinine measurement with calculation of estimated glomerular filtration rate > NRG Serum or plasma glucose measurement (mass/volume) 102 mg/dL 70-105 Serum or plasma calcium measurement (mass/volume) 8.7 mg/dL 8.5-10.1 Serum or plasma total bilirubin measurement (mass/volume) 0.4 mg/dL 0.1-1.0 Serum or plasma alkaline phosphatase measurement (enzymatic activity/volume) 115 U/L 40-136 Serum or plasma aspartate aminotransferase measurement (enzymatic activity/ volume) 15 U/L 5-34 Serum or plasma alanine aminotransferase measurement (enzymatic activity/volume ) 14 U/L 0-55 Serum or plasma protein measurement (mass/volume) 5.8 g/dL 6.4-8.2 Serum or plasma albumin measurement (mass/volume) 2.9 g/dL 3.2-4.5 Lactate dehydrogenase 1 [enzymatic activity/volume] in serum or plasma - 19:35 Lactate dehydrogenase 1 [enzymatic activity/volume] in serum or plasma 144 U/L 125-220 Microscopic examination by wet preparation - 11/01/16 21:00 WET PREP RESULTS LDR 10/02/16 21:17 BY PK NRG Complete blood count (CBC) with automated white blood cell (WBC) differential - 11/02/16 01:03 Blood leukocytes automated count (number/volume) 11.5 10*3/ uL 4.3-11.0 Blood erythrocytes automated count (number/volume) 4.41 10*6 /uL 4.35-5.85 Venous blood hemoglobin measurement (mass/volume) 10.7 g/dL 11.5-16.0 Blood hematocrit (volume fraction) 34 % 35-52 Automated erythrocyte mean corpuscular volume 76 [foz_us] 80-99 Automated erythrocyte mean corpuscular hemoglobin (mass per erythrocyte) 24 pg 25-34 Automated erythrocyte mean corpuscular hemoglobin concentration measurement ( mass/volume) 32 g/dL 32-36 Automated erythrocyte distribution width ratio 14.9 % 10.0-14.5 Automated blood platelet count (count/volume) 283 10*3/uL 130-400 Automated blood platelet mean volume measurement 11.2 [foz_ us] 7.4-10.4 Automated blood neutrophils/100 leukocytes 71 % 42-75 Automated blood lymphocytes/100 leukocytes 18 % 12-44 Blood monocytes/100 leukocytes 9 % 0-12 Automated blood eosinophils/100 leukocytes 1 % 0-10 Automated blood basophils/100 leukocytes 0 % 0-10 Blood neutrophils automated count (number/volume) 8.2 10*3 1.8-7.8 Blood lymphocytes automated count (number/volume) 2.1 10*3 1.0-4.0 Blood monocytes automated count (number/volume) 1.1 10*3 0.0-1.0 Automated eosinophil count 0.1 10*3/uL 0.0-0.3 Automated blood basophil count (count/volume) 0.0 10*3/uL 0.0-0.1 Blood type T Indirect antibody screen panel - 11/02/16 01:03 ABO+Rh group AP NRG Transfusion band number [id number] NRG Blood group antibody screen NEGATIVE NR Automated blood complete blood count (hemogram) panel - 12/19/16 09:41 Blood leukocytes automated count (number/volume) 7.2 10*3/ uL 4.3-11.0 Blood erythrocytes automated count (number/volume) 5.22 10*6 /uL 4.35-5.85 Venous blood hemoglobin measurement (mass/volume) 12.7 g/dL 11.5-16.0 Blood hematocrit (volume fraction) 39 % 35-52 Automated erythrocyte mean corpuscular volume 75 [foz_us] 80-99 Automated erythrocyte mean corpuscular hemoglobin (mass per erythrocyte) 24 pg 25-34 Automated erythrocyte mean corpuscular hemoglobin concentration measurement ( mass/volume) 33 g/dL 32-36 Automated erythrocyte distribution width ratio 17.0 % 10.0-14.5 Automated blood platelet count (count/volume) 344 10*3/uL 130-400 Automated blood platelet mean volume measurement 10.2 [foz_ us] 7.4-10.4 PT panel in platelet poor plasma by coagulation assay - 12/19/16 09:41 Prothrombin time (PT) in platelet poor plasma by coagulation assay 13.7 s 12.2-14.7 INR in platelet poor plasma or blood by coagulation assay 1.1 0.8-1.4 Activated partial thromboplastin time (aPTT) in platelet poor plasma bycoagulation assay - 12/19/16 09:41 Activated partial thromboplastin time (aPTT) in platelet poor plasma bycoagulation assay 28 s 24-35 Comprehensive metabolic panel - 12/19/16 09:41 Serum or plasma sodium measurement (moles/volume) 137 mmol/ L 135-145 Serum or plasma potassium measurement (moles/volume) 3.9 mmol/L 3.6-5.0 Serum or plasma chloride measurement (moles/volume) 104 mmol /L 98-107 Carbon dioxide 24 mmol/L 21-32 Serum or plasma anion gap determination (moles/volume) 9 mmol/L 5-14 Serum or plasma urea nitrogen measurement (mass/volume) 11 mg/dL 7-18 Serum or plasma creatinine measurement (mass/volume) 0.78 mg /dL 0.60-1.30 Serum or plasma urea nitrogen/creatinine mass ratio 14 NRG Serum or plasma creatinine measurement with calculation of estimated glomerular filtration rate > NRG Serum or plasma glucose measurement (mass/volume) 90 mg/dL 70-105 Serum or plasma calcium measurement (mass/volume) 9.3 mg/dL 8.5-10.1 Serum or plasma total bilirubin measurement (mass/volume) 0.3 mg/dL 0.1-1.0 Serum or plasma alkaline phosphatase measurement (enzymatic activity/volume) 121 U/L 40-136 Serum or plasma aspartate aminotransferase measurement (enzymatic activity/ volume) 20 U/L 5-34 Serum or plasma alanine aminotransferase measurement (enzymatic activity/volume ) 22 U/L 0-55 Serum or plasma protein measurement (mass/volume) 7.1 g/dL 6.4-8.2 Serum or plasma albumin measurement (mass/volume) 4.0 g/dL 3.2-4.5 Complete blood count (CBC) with automated white blood cell (WBC) differential - 02/28/17 20:05 Blood leukocytes automated count (number/volume) 17.2 10*3/ uL 4.3-11.0 Blood erythrocytes automated count (number/volume) 5.55 10*6 /uL 4.35-5.85 Venous blood hemoglobin measurement (mass/volume) 14.1 g/dL 11.5-16.0 Blood hematocrit (volume fraction) 43 % 35-52 Automated erythrocyte mean corpuscular volume 77 [foz_us] 80-99 Automated erythrocyte mean corpuscular hemoglobin (mass per erythrocyte) 25 pg 25-34 Automated erythrocyte mean corpuscular hemoglobin concentration measurement ( mass/volume) 33 g/dL 32-36 Automated erythrocyte distribution width ratio 15.2 % 10.0-14.5 Automated blood platelet count (count/volume) 383 10*3/uL 130-400 Automated blood platelet mean volume measurement 10.4 [foz_ us] 7.4-10.4 Automated blood neutrophils/100 leukocytes 83 % 42-75 Automated blood lymphocytes/100 leukocytes 9 % 12-44 Blood monocytes/100 leukocytes 7 % 0-12 Automated blood eosinophils/100 leukocytes 1 % 0-10 Automated blood basophils/100 leukocytes 0 % 0-10 Blood neutrophils automated count (number/volume) 14.3 10*3 1.8-7.8 Blood lymphocytes automated count (number/volume) 1.6 10*3 1.0-4.0 Blood monocytes automated count (number/volume) 1.2 10*3 0.0-1.0 Automated eosinophil count 0.2 10*3/uL 0.0-0.3 Automated blood basophil count (count/volume) 0.1 10*3/uL 0.0-0.1 Serum or plasma choriogonadotropin ( test) detection - 02/28/17 20:05 Serum or plasma choriogonadotropin ( test) detection NEGATIVE NEGATIVE Blood manual differential performed detection - 02/28/17 20:05 Blood monocytes/100 leukocytes 2 % NRG Manual blood segmented neutrophils/100 leukocytes 87 % NRG Blood band neutrophils/100 leukocytes 0 % NRG Manual blood lymphocytes/100 leukocytes 11 % NRG Manual eosinophils/100 leukocytes in nose 0 % NRG Manual blood basophils/100 leukocytes 0 % NRG Blood erythrocyte morphology finding identification NORMAL NRG Whole blood basic metabolic panel - 02/28/17 20:05 Serum or plasma sodium measurement (moles/volume) 140 mmol/ L 135-145 Serum or plasma potassium measurement (moles/volume) 3.9 mmol/L 3.6-5.0 Serum or plasma chloride measurement (moles/volume) 106 mmol /L 98-107 Carbon dioxide 24 mmol/L 21-32 Serum or plasma anion gap determination (moles/volume) 10 mmol/L 5-14 Serum or plasma urea nitrogen measurement (mass/volume) 16 mg/dL 7-18 Serum or plasma creatinine measurement (mass/volume) 0.84 mg /dL 0.60-1.30 Serum or plasma urea nitrogen/creatinine mass ratio 19 NRG Serum or plasma creatinine measurement with calculation of estimated glomerular filtration rate > NRG Serum or plasma glucose measurement (mass/volume) 106 mg/dL 70-105 Serum or plasma calcium measurement (mass/volume) 9.7 mg/dL 8.5-10.1 Streptococcus pyogenes antigen detection - 02/28/17 20:08 Streptococcus pyogenes antigen detection POSITIVE NEGATIVE Influenza virus A and B antigen detection - 02/28/17 20:08 FLU RESULT NEGATIVE FOR INFLUENZA A AND B ANTIGENS BY IA NRG Encounters ACCT No. Visit Date/Time Discharge Status Pt. Type Provider Facility Loc./Unit Complaint [id number] 09/25/2014 08:09:00 09/25/2014 23: 59:59 CLS Outpatient TOBIAS RAY APRN [id number] 03/26/2014 11:03:00 03/26/2014 23: 59:59 CLS Outpatient JOY YEN DO [id number] 10/08/2013 10:42:00 10/08/2013 23: 59:59 CLS Outpatient JOY YEN DO [id number] 01/17/2013 13:25:00 01/17/2013 23: 59:59 CLS Outpatient
--- OUTSIDE RECORDS SUMMARY | 2017-04-01 18:15 | XMS REPORT ---
Author Author ITA KILPATRICK [employer] Address Unknown Phone Unavailable Care Team Providers Care Manager Pricing Name Role Phone ITA KILPATRICK CP Unavailable Allergies, Adverse Reactions, Alerts Substance Reaction Event Type N.K.D.A. Info Not Available Non Drug Allergy Problems Problem Type Condition Code Onset Dates Condition Status Problem Morbid obesity due to excess calories E66.01 Active Problem Hx of shoulder surgery Z98.89 Active Problem Left shoulder pain M25.512 Active Assessment Hx of shoulder surgery Z98.89 Active Assessment Left shoulder pain M25.512 Active Assessment Morbid obesity due to excess calories E66.01 Active Medications Medication Code System Code Instructions Start Date End Date Status Dosage Parafodre Rosemarye [facility] [address]-92 500 MG Orally 3 times a day Nov 24, 2015 Dec 24, 2015 1 tablet Procedures Procedure Coding System Code Date Office Visit, Est Pt., Level 3 CPT-4 21196 Nov 24, 2015 Vital Signs Date/Time: Nov 24, 2015 Temperature 97.8 F Weight 302.8 lbs Height 68 in BMI 46.04 Index Blood Pressure Diastolic 78 mmHg Blood Pressure Systolic 124 mmHg Cardiac Monitoring Heart Rate 86 bpm Results No Known Results Summary Purpose [employer] Submission
--- OUTSIDE RECORDS SUMMARY | 2017-04-01 18:15 | XMS REPORT ---
Author Author DAIN VERNON Organization [facility] Address [address] [place] [address] Care Team Providers Care Dance Entertainer Name Role Phone DAIN VERNON Unavailable PROBLEMS Type Condition ICD9-CM Code ANZ65-ZU Code Onset Dates Condition Status SNOMED Code Problem Left shoulder pain M25.512 Active 33428538 Problem Morbid obesity due to excess calories E66.01 Active 761296042 Problem Hx of shoulder surgery Z98.89 Active 988806657 Assessment Acute non-recurrent pansinusitis J01.40 Jul, Active 2900726 ALLERGIES Substance Reaction Event Type Date Status N.K.D.A. Unknown Non Drug Allergy Jul, Unknown SOCIAL HISTORY No smoking Hx information available PLAN OF CARE VITAL SIGNS Height 68 in 2016-08-12 Weight 308.2 lbs 2016-08-12 Heart Rate 92 bpm 2016-08-12 Respiratory Rate 18 2016-08-12 BMI 46.86 kg/m2 2016-08-12 Blood pressure systolic 110 mmHg 2016-08-12 Blood pressure diastolic 83 mmHg 2016-08-12 MEDICATIONS Medication Instructions Dosage Frequency Start Date End Date Duration Status Azithromycin 250 MG Orally Once a day 2 tablets on the first day, then 1 tablet daily for 4 days 24h Jul, Jul, 5 day(s) Active RESULTS No Results PROCEDURES Procedure Date Ordered Related Diagnosis Body Site Office Visit, Est Pt., Level 3 Aug 12, 2016 IMMUNIZATIONS No Known Immunizations
--- OUTSIDE RECORDS SUMMARY | 2017-04-01 18:16 | XMS REPORT ---
Author Author EVERARDO CURRAN Organization [employer] Address Unknown Phone Unavailable Care Team Providers Care Mechanical Engineering Officer Name Role Phone EVERARDO CURRAN CP Unavailable Allergies, Adverse Reactions, Alerts Substance Reaction Event Type N.K.D.A. Info Not Available Non Drug Allergy Problems Problem Type Condition Code Onset Dates Condition Status Problem Morbid obesity due to excess calories E66.01 Active Problem Hx of shoulder surgery Z98.89 Active Problem Left shoulder pain M25.512 Active Assessment Allergic sinusitis J30.9 Active Medications Medication Code System Code Instructions Start Date End Date Status Dosage Xanax [facility] [address]-48 0.25 MG Orally not defined Claritin [facility] [address]-10 10 MG Orally Once a day Jan 02, 2016 Jan 16, 2016 1 tablet Prozac [facility] [address]-99 10 MG Orally Once a day not defined Nasonex [facility] [address]-53 50 MCG/ACT Nasally Once a day Jan 02, 2016 2 sprays in each nostril Procedures Procedure Coding System Code Date Office Visit, Est Pt., Level 3 CPT-4 41837 Jan 02, 2016 Vital Signs Date/Time: Jan 02, 2016 Temperature 98.6 F Weight 303.8 lbs Height 68 in BMI 46.19 Index Blood Pressure Diastolic 80 mmHg Blood Pressure Systolic 124 mmHg Cardiac Monitoring Heart Rate 80 bpm Results No Known Results Summary Purpose [employer] Submission
--- OUTSIDE RECORDS SUMMARY | 2017-04-01 18:18 | XMS REPORT | Continuity of Care Document ---
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 08/18/2015 Ot 649.53 08/18/2015 Ot V22.2 08/18/2015 [...] BEHAVIOR OF DIGE 02/28/2017 CHAVEZ, PETER J EXHIBITS CURATOR Ot J02.0 STREPTOCOCCAL PHARYNGITIS 02/28/2017 LEEANN CHAVEZ EXHIBITS CURATOR Ot R11.2 NAUSEA WITH VOMITING, UNSPECIFIED 02/28/2017 LEEANN CHAVEZ EXHIBITS CURATOR Ot R50.9 FEVER, UNSPECIFIED Procedures Code Description Performed By Performed On 74.1 01/30/2011 72.79 06/03/2012 74.1 06/03/2012 99.77 06/03/2012 40514 INFLUENZA A & B (IN-HOUSE) 01/17/2013 74.1 05/17/2013 75.34 05/17/2013 15438 TEST, URINE (IN-HOUSE) 03/26/2014 03536 ROUTINE VENIPUNCTURE 09/25/2014 17531 CBC 09/25/2014 [id number] GFR CALC (RESULT ONLY) 09/25/2014 22184 CMP 09/25/2014 06284 TSH 09/25/2014 [id number] EXTRACTION OF POC, LOW CERVICAL, OPEN AP [...] Blood microcytes detection by light microscopy SLIGHT [facility] [id number] - 10/24/16 12:53 [id number] SPECIMEN AVAILABLE [facility] Comprehensive metabolic panel - 10/24/16 [...] mean volume measurement 11.0 [foz_ us] 7.4-10.4 [id number] - 10/25/16 13:35 [id number] SPECIMEN AVAILABLE NRG Complete urinalysis with reflex [...] ABO+Rh group AP NRG Transfusion band number [id number] NRG Blood group antibody screen NEGATIVE NR [...] Status Pt. Type Provider Facility Loc./Unit Complaint [id number] 09/25/2014 08:09:00 09/25/2014 23: 59:59 CLS Outpatient TOBIAS RAY APRN [id number] 03/26/2014 11:03:00 03/26/2014 23: 59:59 CLS Outpatient JOY YEN DO [id number] 10/08/2013 10:42:00 10/08/2013 23: 59:59 CLS Outpatient JOY YEN DO [id number] 01/17/2013 13:25:00 01/17/2013 23: 59:59 CLS Outpatient
--- OUTSIDE RECORDS SUMMARY | 2017-04-01 18:20 | XMS REPORT ---
Author ITA Ivory Organization [employer] Address Unknown Phone Unavailable Care Team Providers Care Sleep Scientist Name Role Phone ITA KILPATRICK CP Unavailable Allergies, Adverse Reactions, Alerts Substance Reaction Event Type N.K.D.A. Info Not Available Non Drug Allergy Problems Problem Type Condition Code Onset Dates Condition Status Problem Cough 786.2 Active Problem Influenza with other respiratory manifestations 487.1 Active Problem Acute sinusitis, unspecified 461.9 Active Problem Tension headache 307.81 Active Assessment Viral upper respiratory tract infection J06.9 Active Medications Medication Code System Code Instructions Start Date End Date Status Dosage Xanax [facility] [address]-95 0.25 MG Orally not defined Maximus Gage [facility] [address]-28 100 MG Orally Three times a day Oct 20, 2015 Oct 27, 2015 1 capsule as needed Prozac [facility] [address]-54 10 MG Orally Once a day not defined Procedures Procedure Coding System Code Date Office Visit, Est Pt., Level 3 CPT-4 92787 Oct 20, 2015 Vital Signs Date/Time: Oct 20, 2015 Temperature 98.3 F Weight 300.0 lbs Height 68 in BMI 45.61 Index Blood Pressure Diastolic 84 mmHg Blood Pressure Systolic 122 mmHg Cardiac Monitoring Heart Rate 90 bpm Results No Known Results Summary Purpose [employer] Submission
== END 2017-02-28 21:03 | disposition home or self-care (01) ==
LOC: EDUNIT# 19:43 → ER 19:44
DX: J02.0 Streptococcal pharyngitis (principal); R11.2 Nausea with vomiting, unspecified
CPT/HCPCS: 36415; 80048; 84703; 85007; 85027; 87430; 87804; 96361; 96372; 96374

== ENCOUNTER 2017-06-08 21:19 | Emergency (ER) | payer MEDICAID ==
[~2017-06-08] VITALS: Ht 172.7 cm; Wt 142.9 kg
--- OUTSIDE RECORDS SUMMARY | 2017-06-08 21:24 | XMS REPORT | Continuity of Care Document ---
Author Author [facility] Organization [facility] Address Unknown Phone Unavailable Care Team Providers Care Bankruptcy Law Specialist Name Role Phone Batsheva Kilgore PCP [phone] Source Comments Some departments are not documenting in the electronic medical record. If you do not see the information that you expected, contact Release of Information in the Health Information Management department at [phone] for further assistance in locating additional records.[facility] Active Allergies and Adverse Reactions No Known [...] Taken Blood Pressure 126/88 12/26/2016 9:53 AM SCIENTIFIC ADVISOR Pulse 96 12/26/2016 9:53 AM SCIENTIFIC ADVISOR Temperature 36.9 C (98.4 F) 12/21/2016 7:00 AM SCIENTIFIC ADVISOR Respiratory Rate - - Height 1.727 m (5' 8") 12/26/2016 9:53 AM SCIENTIFIC ADVISOR Weight 137.712 kg (303 lb 9.6 12/26/2016 9:53 AM SCIENTIFIC ADVISOR oz) Body Mass Index 46.17 12/26/2016 9:53 AM SCIENTIFIC ADVISOR Oxygen Saturation 99% 12/21/2016 7:00 AM SCIENTIFIC ADVISOR Plan of Care Health Maintenance Due Date Last Done Comments Physical (Comprehensive) 1999 Exam Hpv Vaccines (#1) 2003 Pertussis Vaccine 2003 Tetanus Vaccine 2009 Cervical Cancer Screening 2013 Influenza Vaccine 07/27/2017 Results from Last 3 Months Not on file
--- OUTSIDE RECORDS SUMMARY | 2017-06-08 21:29 | XMS REPORT | Continuity of Care Document ---
Author Author [facility] Address Unknown Phone Unavailable Allergies Active Description Code Type Severity Reaction Onset Reported/Identified Relationship to Patient Clinical Status Yes No Known Drug Allergies [id number] Drug Allergy Unknown N/ A 07/11/2010 Medications [...] MD Ot 642.43 MILD/NOS PREECLAMP-ANTEP 05/12/2013 PEPE AMRTINEZ MD Ot 648.23 ANEMIA-ANTEPARTUM 05/12/2013 PEPE MARTINEZ MD Ot 649.13 OBESITY COMP PREG/CHILDBIRTH/ PUERPERIUM, 05/12/2013 EPPE MARTINEZ MD Ot 654.23 PREV DELIVERY, ANTEPARTUM [...] ZULLY TOURE DO Ot 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 08/18/2015 Ot 649.53 08/18/2015 Ot V22.2 08/18/2015 [...] Z3A.27 27 WEEKS GESTATION OF 09/03/2016 PEPE MARTNIEZ MD Ot 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.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 LABOR BEFORE 37 [...] BEHAVIOR OF DIGE 02/28/2017 CHAVEZ, PETER J RECEIVING COORDINATOR Ot J02.0 STREPTOCOCCAL PHARYNGITIS 02/28/2017 LEEANN CHAVEZ RECEIVING COORDINATOR Ot R11.2 NAUSEA WITH VOMITING, UNSPECIFIED 02/28/2017 LEEANN CHAVEZ RECEIVING COORDINATOR Ot R50.9 FEVER, UNSPECIFIED Procedures Code Description Performed By Performed On 74.1 01/30/2011 72.79 06/03/2012 74.1 06/03/2012 99.77 06/03/2012 84329 INFLUENZA A & B (IN-HOUSE) 01/17/2013 74.1 05/17/2013 75.34 05/17/2013 54272 TEST, URINE (IN-HOUSE) 03/26/2014 62041 ROUTINE VENIPUNCTURE 09/25/2014 22309 CBC 09/25/2014 [id number] GFR CALC (RESULT ONLY) 09/25/2014 40812 CMP 09/25/2014 65146 TSH 09/25/2014 [id number] EXTRACTION OF POC, LOW CERVICAL, OPEN AP [...] Blood microcytes detection by light microscopy SLIGHT [facility] [id number] - 10/24/16 12:53 [id number] SPECIMEN AVAILABLE [facility] Comprehensive metabolic panel - 10/24/16 12:53 Serum [...] mean volume measurement 11.0 [foz_ us] 7.4-10.4 [id number] - 10/25/16 13:35 [id number] SPECIMEN AVAILABLE NRG Complete urinalysis with reflex [...] ABO+Rh group AP NRG Transfusion band number [id number] NRG Blood group antibody screen NEGATIVE NR [...] Status Pt. Type Provider Facility Loc./Unit Complaint [id number] 09/25/2014 08:09:00 09/25/2014 23: 59:59 CLS Outpatient TOBIAS RAY APRN [id number] 03/26/2014 11:03:00 03/26/2014 23: 59:59 CLS Outpatient JOY YEN DO [id number] 10/08/2013 10:42:00 10/08/2013 23: 59:59 CLS Outpatient JOY YEN DO [id number] 01/17/2013 13:25:00 01/17/2013 23: 59:59 CLS Outpatient
--- NOTE | 2017-06-08 21:54 | ED Back Pain ---
General Chief Complaint: Back Problems Stated Complaint: LOWER BACK PAIN Nursing Triage Note: c/o low back pain. Had nausea and diarrhea today. Pt in no acute distress. Nursing Sepsis Screen: No Definite Risk Source of Information: Patient Exam Limitations: No Limitations History of Present Illness Time Seen by Provider: 21:59 Initial Comments 27-year-old female patient presents to the emergency department with complaints of low back pain beginning this evening when she was getting up out of a chair. Did have one episode of nausea and diarrhea today. Denies any current nausea or diarrhea. Denies vomiting. Denies fever, dysuria, frequency, hematuria. Denies known injury. patient is . Location: Lumbar Spine, Paraspinous Muscles Timing/Duration: 4-6 Hours Pain/Injury Location: Back Radiation: Other (denies radiation) Modifying Factors: Worse With Movement Associated Symptoms: muscle spasms, No fever, No weakness, No numbness in legs/ feet, No tingling in legs/feet, No sensory/motor loss, lower back pain, No loss of bladder control, No loss of bowel control Allergies and Home Medications Allergies Coded Allergies: No Known Drug Allergies (Unverified , 07/11/10) Home Medications Hydrocodone/Acetaminophen 1 Each Tablet, 1 EACH PO Q6H PRN for PAIN, #14 Ref 0 Prescribed by: MEGHAN GUSMAN on 06/08/172240 Prednisone 20 Mg Tab, 20 MG PO DAILY, #5 Ref 0 Prescribed by: MEGHAN GUSMAN on 06/08/172240 Constitutional: No chills, No dizziness, No fever, No malaise EENTM: no symptoms reported Respiratory: No cough, No short of breath Cardiovascular: No chest pain, No palpitations Gastrointestinal: see HPI (see history of present illness), No abdominal pain, No constipation, diarrhea ((resolved)), No hematemesis, No melena, nausea (( resolved)), No vomiting Genitourinary: No decreased output, No discharge, No dysuria, No frequency, No hematuria, No pain : No Musculoskeletal: see HPI, back pain, No joint pain, No neck pain Skin: no symptoms reported Psychiatric/Neurological: No Symptoms Reported All Other Systems Reviewed Negative Unless Noted: Yes (Negative excepted noted.) Past Fumpytj-Ipfvil-Ojsmzv Hx Patient Social History Alcohol Use: Denies Use Recreational Drug Use: No Type Used: Cigarettes Recent Foreign Travel: No Contact w/Someone Who Travel: No Recent Infectious Disease Expo: No Recent Hopitalizations: No Immunizations Up To Date Tetanus Booster (TDap): Unknown PED Vaccines UTD: No Date of Influenza Vaccine: Aug 26, 2012 Seasonal Allergies Seasonal Allergies: No Surgeries HX Surgeries: Yes (LEFT SHOULDER 04/09 AND 2008, X 3) Surgeries: Adenoidectomy, Appendectomy, Section, Orthopedic, Tonsillectomy Respiratory Hx Respiratory Disorders: No Cardiovascular Hx Cardiac Disorders: No Neurological Hx Neurological Disorders: No Reproductive System Hx Reproductive Disorders: No Sexually Transmitted Disease: Yes (CHLAMYDIA 2009, Gonnerhea 2011, beginning of preg ) HIV/AIDS: No Female Reproductive Disorders: Denies Genitourinary Hx Genitourinary Disorders: No Gastrointestinal Hx Gastrointestinal Disorders: No Musculoskeletal Hx Musculoskeletal Disorders: Yes (LEFT SHOULDER PROBLEMS) Musculoskeletal Disorders: Arthritis Endocrine Hx Endocrine Disorders: No HEENT HX ENT Disorders: Yes (mass on rt cheek/jaw) Cancer Hx Cancer: No Psychosocial Hx Psychiatric Problems: No Integumentary HX Skin/Integumentary Disorder: No Blood Transfusions Hx Blood Disorders: No Adverse Reaction to a Blood Tr: No Reviewed Nursing Assessment Reviewed/Agree w Nursing PMH: Yes Family Medical History Significant Family History: No Pertinent Family Hx Family Medial History: Diabetes mellitus 19 FATHER 19 MOTHER Hypertension 19 MOTHER Physical Exam Vital Signs Vital Sign - Last 12Hours 06/08/17 21:33 Temp 98.1 Pulse 70 Resp 16 B/P (MAP) 142/110 Pulse Ox 98 O2 Delivery Room Air Capillary Refill : Less Than 3 Seconds General Appearance: No Apparent Distress, WD/WN, Obese Neck: Full Range of Motion, Normal Inspection, Non Tender, Supple Cardiovascular: Regular Rate, Rhythm, No Edema, No Murmur, Normal Peripheral Pulses Respiratory: Lungs Clear, Normal Breath Sounds, No Respiratory Distress Gastrointestinal: Normal Bowel Sounds, No Organomegaly, Non Tender, Soft, No Distended Back: Normal Inspection, No Decreased Range of Motion, Vertebral Tenderness ( lumbar spine tenderness without stepoff.), Other (lumbar paraspinous muscle tenderness bilaterally. TTP over the bilateral sacroiliac joints.) Extremity: Normal Capillary Refill, Normal Inspection, Normal Range of Motion, Non Tender, No Pedal Edema Neurologic/Psychiatric: Alert, Oriented x3, No Motor/Sensory Deficits, Normal Mood/Affect Skin: Normal Color, Warm/Dry Progress/Results/Core Measures Results/Orders Lab Results Laboratory Tests Test 06/08/17 21:55 Range/Units Urine Color YELLOW Urine Clarity CLEAR Urine pH 6 5-9 Urine Specific [place] 1.025 H 1.016-1.022 Urine Protein 2+ H NEGATIVE Urine Glucose (UA) NEGATIVE NEGATIVE Urine Ketones NEGATIVE NEGATIVE Urine Nitrite NEGATIVE NEGATIVE Urine Bilirubin NEGATIVE NEGATIVE Urine Urobilinogen 1 NORMAL MG/DL Urine Leukocyte Esterase 1+ H NEGATIVE Urine RBC (Auto) NEGATIVE NEGATIVE Urine RBC NONE /HPF Urine WBC 0-2 /HPF Urine Squamous Epithelial Cells 5-10 /HPF Urine Crystals NONE /LPF Urine Bacteria NONE /HPF Urine Casts NONE /LPF Urine Mucus NEGATIVE /LPF Urine Culture Indicated NO Urine Test NEGATIVE NEGATIVE My Orders Orders - MEGHAN GUSMAN Ua Culture If Indicated (06/08/17 21:50) Hcg,Qualitative Urine (06/08/17 21:59) Hydrocodone/Apap 5/325 Tablet (Lortab 5 (06/08/17 22:05) Lumbar Spine - 2-3 Views (06/08/17 22:05) Vital Signs/I&O Vital Sign - Last 12Hours 06/08/17 06/08/17 06/08/17 21:33 22:11 22:48 Temp 98.1 98.1 97.3 Pulse 70 70 Resp 16 16 B/P (MAP) 142/110 Pulse Ox 98 98 O2 Delivery Room Air Blood Pressure Mean: 121 Diagnostic Imaging Diagonstic Imaging: Xray Plain Films/CT/US/NM/MRI: other (lumbar spine) Comments no acute bony abnormality. Reviewed: Reviewed/Discussed (with Dr. Greenberg) Departure Communication Progress Notes Diagnostic findings and laboratory findings discussed with the patient. Patient given a prescription for low dose prednisone and hydrocodone due to patient . Plan for discharge to home. Patient ambulated from the emergency department without difficulty. Impression Impression: Primary Impression: Strain of lumbar spine Qualified Codes: S39.012A - Strain of muscle, fascia and tendon of lower back , initial encounter Disposition: HOME, SELF-CARE Condition: Improved Departure-Patient Inst. Decision time for Depature: 22:43 Referrals: NO,LOCAL PHYSICIAN (PCP/Family) Primary Care Physician Patient Instructions: Low Back Pain (DC) Add. Discharge Instructions: All discharge instructions reviewed with patient and/or family. Voiced understanding. Medications as instructed. Ibuprofen 800 mg by mouth every 8 hours as directed for pain. No heavy lifting, pushing, pulling, twisting, bending, climbing 7 days. Ice packs or heating pads as needed for pain. Follow-up with your family practitioner if no improvement in symptoms in 7-10 days. Return to the emergency department for worsened symptoms or any other concerns. Scripts Prednisone (Prednisone) 20 Mg Tab 20 MG PO DAILY, #5 TAB 0 Refills Prov: MEGHAN GUSMAN 06/08/17 Hydrocodone/Acetaminophen (Hydrocodon -Acetaminophen 5-325) 1 Each Tablet 1 EACH PO Q6H Y for PAIN, #14 TAB 0 Refills Prov: MEGHAN GUSMAN 06/08/17 MEGHAN GUSMAN Jun 08, 2017 21:54
[2017-06-08 22:03] LABS: BILIRUBIN,URINE NEGATIVE (NEGATIVE); KETONES,URINE NEGATIVE (NEGATIVE); LEUKOCYTE ESTERASE ,URINE 1+ (NEGATIVE); NITRITE,URINE NEGATIVE (NEGATIVE); PH,URINE 6 (5-9); PROTEIN,URINE 2+ (NEGATIVE); UROBILINOGEN,URINE 1 MG/DL (NORMAL)
[2017-06-08] MEDS ORDERED: HYDROcodone/APAP 5 MG/325 MG (LORTAB) TAB PO STA (22:05)
[2017-06-08 22:09] LABS: WBC,URINE 0-2 /HPF
[2017-06-08] MEDS ORDERED: PRD20T PO (22:41)
[2017-06-08] MEDS ORDERED: HYDR-3812 PO (22:41)
[2017-06-08 22:48] VITALS: BP 140/80
--- NOTE | 2017-06-09 08:11 | Diagnostic Imaging Report ---
INDICATION: Low back pain radiating down into both hips starting earlier in the day. TECHNIQUE: AP, Lateral and Spot imaging of the lumbar spine CORRELATION STUDY: None FINDINGS: There is some straightening of the normal lumbar lordotic curvature. The lumbar spinal curvature and alignment are otherwise unremarkable. Vertebral body heights and disc spaces are maintained. No fracture or malalignment is seen. There is sclerosis about the bilateral SI joints, right slightly greater than left. Clips over the of right iliac crest. IMPRESSION: No radiographic evidence for acute bony abnormality of the lumbar spine. May be slight sclerosis of the SI joints, right greater than left, reflect nonspecific sacroiliitis. Dictated by: Dictated on workstation # [id number]
== END 2017-06-08 22:48 | disposition home or self-care (01) ==
LOC: EDUNIT# 21:19 → ER 21:20
DX: S39.012A Strain of muscle, fascia and tendon of lower back, initial encounter (principal); M19.90 Unspecified osteoarthritis, unspecified site; X50.0XXA Overexertion from strenuous movement or load, initial encounter
CPT/HCPCS: 72100; 81000; 84703; 99283

== ENCOUNTER 2017-11-10 08:21 | Emergency (ER) | payer MEDICAID ==
[~2017-11-10] VITALS: Ht 170.2 cm; Wt 108.9 kg
[~2017-11-10 08:21] MED LIST changes: +HYDR-3812 PO; -NAPR500T3 PO; +NAPR500T4 PO; +PRD20T PO
--- OUTSIDE RECORDS SUMMARY | 2017-11-10 08:27 | XMS REPORT | Clinical Summary ---
Author Author [facility] Organization [facility] Address Unknown Phone Unavailable Care Team Providers Care Warehouse Record Clerk Name Role Phone PCP Unavailable Source Comments Some departments are not documenting in the electronic medical record. If you do not see the information that you expected, contact Release of Information in the Health Information Management department at [phone] for further assistance in locating additional records.[facility] Allergies No Known Allergies Current Medications Prescription Sig. 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 Family History Medical History Relation Name Comments Diabetes Father Diabetes Mother Relation Name Status Comments Father Alive Mother Alive Social History Tobacco Use Types Packs/Day Years Used Date Former Smoker Smokeless Tobacco: Never Used Sex Assigned at Date Recorded Not on file Last Filed Vital Signs Vital Sign Reading Time Taken Blood Pressure 126/88 12/26/2016 9:53 AM WORKFORCE PLANNER Pulse 96 12/26/2016 9:53 AM WORKFORCE PLANNER Temperature 36.9 C (98.4 F) 12/21/2016 7:00 AM WORKFORCE PLANNER Respiratory Rate - - Oxygen Saturation 99% 12/21/2016 7:00 AM WORKFORCE PLANNER Inhaled Oxygen - - Concentration Weight 137.7 kg (303 lb 9.6 oz) 12/26/2016 9:53 AM WORKFORCE PLANNER Height 172.7 cm (5' 8") 12/26/2016 9:53 AM WORKFORCE PLANNER Body Mass Index 46.16 12/26/2016 9:53 AM WORKFORCE PLANNER Plan of Treatment Health Maintenance Due Date Last Done Comments PHYSICAL (COMPREHENSIVE) 1999 EXAM HPV VACCINES (1 of 3 - 2003 Female 3 Dose Series) PERTUSSIS VACCINE 2003 TETANUS VACCINE 2009 CERVICAL CANCER SCREENING 2013 INFLUENZA VACCINE 06/26/2017 Results Not on filefrom Last 3 Months
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
--- NOTE | 2017-11-10 08:46 | ED Respiratory ---
General Chief Complaint: Abdominal/GI Problems Stated Complaint: SHARP SHOOTING PAIN L SIDE, VOMITING Source: patient Exam Limitations: no limitations History of Present Illness Time seen by provider: 08:44 Initial Comments 27-year-old white female who is complaining of paroxysmal left lower quadrant pain that awoke her from sleep last night. Patient's had associated nausea and vomiting because of the severity of the pain. The pain is sharp in nature severe N quality and radiates into her back. Patient denies similar episodes in the past. There is no family history of kidney stones. Past medical history includes previous appendectomy. Patient's had 4 previous C -sections. Allergies and Home Medications Allergies Coded Allergies: No Known Drug Allergies (Unverified , 07/11/10) Home Medications No Active Prescriptions or Reported Meds Constitutional: No chills, No fever EENTM: No hearing loss, No vision loss Respiratory: No cough Cardiovascular: No chest pain Gastrointestinal: LLQ, see HPI, abdominal pain (LLQ), No diarrhea, No melena, nausea, vomiting Genitourinary: No decreased output, No dysuria, No frequency, No hematuria Musculoskeletal: see HPI, back pain Skin: No rash Psychiatric/Neurological: No Symptoms Reported Hematologic/Lymphatic: No Symptoms Reported Past Oebmcgs-Iosajs-Hbdhsr Hx Patient Social History Type Used: Cigarettes Recent Foreign Travel: No Contact w/Someone Who Travel: No Recent Hopitalizations: No Immunizations Up To Date Tetanus Booster (TDap): Unknown PED Vaccines UTD: No Date of Influenza Vaccine: Aug 26, 2012 Seasonal Allergies Seasonal Allergies: No Surgeries History of Surgeries: Yes (LEFT SHOULDER 04/09 AND 2008, X 3) Surgeries: Adenoidectomy, Appendectomy, Section, Orthopedic, Tonsillectomy Respiratory History of Respiratory Disorde: No Cardiovascular History of Cardiac Disorders: No Neurological History of Neurological Disord: No Reproductive System Hx Reproductive Disorders: No Sexually Transmitted Disease: Yes (CHLAMYDIA 2009, Gonnerhea 2011, beginning of preg ) HIV/AIDS: No Female Reproductive Disorders: Denies Gastrointestinal History of Gastrointestinal Di: No Musculoskeletal History of Musculoskeletal Dis: Yes (LEFT SHOULDER PROBLEMS) Musculoskeletal Disorders: Arthritis Endocrine History of Endocrine Disorders: No Cancer History of Cancer: No Psychosocial History of Psychiatric Problem: No Integumentary History of Skin or Integumenta: No Blood Transfusions History of Blood Disorders: No Adverse Reaction to a Blood Tr: No Reviewed Nursing Assessment Reviewed/Agree w Nursing PMH: Yes Family Medical History Significant Family History: No Pertinent Family Hx Family Medial History: Diabetes mellitus 19 FATHER 19 MOTHER Hypertension 19 MOTHER Physical Exam Vital Signs Vital Sign - Last 12Hours 11/10/17 11/10/17 08:39 08:58 Temp 97.4 Pulse 85 Resp 18 B/P (MAP) 116/104 (108) Pulse Ox 96 O2 Delivery Room Air Capillary Refill : General Appearance: WD/WN, mild distress Eyes: Bilateral Eye Normal Inspection HEENT: normal ENT inspection Neck: full range of motion Respiratory: lungs clear Cardiovascular: regular rate, rhythm Gastrointestinal: normal bowel sounds, tenderness (left lower quadrant) Extremities: normal range of motion, normal inspection Neurologic/Psychiatric: no motor/sensory deficits, alert, normal mood/affect Skin: normal color, warm/dry Progress/Results/Core Measures Suspected Sepsis SIRS Temperature: Pulse: Respiratory Rate: Laboratory Tests 11/10/17 09:20: White Blood Count 7.1 Blood Pressure / Mean: Laboratory Tests 11/10/17 09:20: Creatinine 0.69, Platelet Count 294, Total Bilirubin 0.3 Results/Orders Lab Results Laboratory Tests Test 11/10/17 08:43 11/10/17 09:20 Range/Units Urine Color YELLOW Urine Clarity CLEAR Urine pH 6.5 5-9 Urine Specific [place] 1.010 L 1.016-1.022 Urine Protein 1+ H NEGATIVE Urine Glucose (UA) NEGATIVE NEGATIVE Urine Ketones NEGATIVE NEGATIVE Urine Nitrite NEGATIVE NEGATIVE Urine Bilirubin NEGATIVE NEGATIVE Urine Urobilinogen NORMAL NORMAL MG/DL Urine Leukocyte Esterase NEGATIVE NEGATIVE Urine RBC (Auto) NEGATIVE NEGATIVE Urine RBC NONE /HPF Urine WBC NONE /HPF Urine Squamous Epithelial Cells 2-5 /HPF Urine Crystals NONE /LPF Urine Bacteria TRACE /HPF Urine Casts NONE /LPF Urine Mucus NEGATIVE /LPF Urine Culture Indicated NO White Blood Count 7.1 4.3-11.0 10^3/uL Red Blood Count 5.00 4.35-5.85 10^6/uL Hemoglobin 13.3 11.5-16.0 G/DL Hematocrit 40 35-52 % Mean Corpuscular Volume 80 80-99 FL Mean Corpuscular Hemoglobin 27 25-34 PG Mean Corpuscular Hemoglobin Concent 33 32-36 G/DL Red Cell Distribution Width 14.4 10.0-14.5 % Platelet Count 294 130-400 10^3/uL Mean Platelet Volume 10.5 H 7.4-10.4 FL Neutrophils (%) (Auto) 60 42-75 % Lymphocytes (%) (Auto) 28 12-44 % Monocytes (%) (Auto) 8 0-12 % Eosinophils (%) (Auto) 3 0-10 % Basophils (%) (Auto) 1 0-10 % Neutrophils # (Auto) 4.3 1.8-7.8 X 10^3 Lymphocytes # (Auto) 2.0 1.0-4.0 X 10^3 Monocytes # (Auto) 0.5 0.0-1.0 X 10^3 Eosinophils # (Auto) 0.2 0.0-0.3 10^3/uL Basophils # (Auto) 0.1 0.0-0.1 10^3/uL Sodium Level 141 135-145 MMOL/L Potassium Level 4.2 3.6-5.0 MMOL/L Chloride Level 108 H 98-107 MMOL/L Carbon Dioxide Level 25 21-32 MMOL/L Anion Gap 8 5-14 MMOL/L Blood Urea Nitrogen 11 7-18 MG/DL Creatinine 0.69 0.60-1.30 MG/DL Estimat Glomerular Filtration Rate > 60 BUN/Creatinine Ratio 16 Glucose Level 101 70-105 MG/DL Calcium Level 9.2 8.5-10.1 MG/DL Total Bilirubin 0.3 0.1-1.0 MG/DL Aspartate Amino Transf (AST/SGOT) 21 5-34 U/L Alanine Aminotransferase (ALT/SGPT) 22 0-55 U/L Alkaline Phosphatase 91 40-136 U/L Total Protein 7.5 6.4-8.2 GM/DL Albumin 3.8 3.2-4.5 GM/DL Lipase 22 8-78 U/L My Orders Orders - AMY GODDARD MD Ua Culture If Indicated (11/10/17 08:49) Ct Abd/Pelvis Wo(Kidney Stone) (11/10/17 08:49) Cbc With Automated Diff (11/10/17 08:49) Comprehensive Metabolic Panel (11/10/17 08:49) Lipase (11/10/17 08:49) Fentanyl Injection (Sublimaze Injection (11/10/17 09:00) Ondansetron Injection (Zofran Injectio (11/10/17 09:00) Albuterol Pre-Mix Nebs (Rt) (Proventil (11/10/17 08:56) Chest Pa/Lat (2 View) (11/10/17 09:55) Ketorolac Injection (Toradol Injection) (11/10/17 11:30) Ketorolac Injection (Toradol Injection) (11/10/17 11:30) Us Non Ob Pelvis Comp/Transvag (11/10/17 11:31) Medications Given in ED Current Medications Medications Dose Ordered Sig/Zeeshan Route Start Time Stop Time Status Last Admin Dose Admin Fentanyl Citrate 50 mcg ONCE ONCE IVP 11/10/17 09:00 11/10/17 09:01 DC 11/10/17 09:20 50 MCG Ketorolac Tromethamine 30 mg ONCE ONCE IVP 11/10/17 11:30 11/10/17 11:31 DC 11/10/17 11:33 30 MG Ondansetron HCl 4 mg ONCE ONCE IVP 11/10/17 09:00 11/10/17 09:01 DC 11/10/17 09:20 4 MG Vital Signs/I&O Vital Sign - Last 12Hours 11/10/17 11/10/17 08:39 08:58 Temp 97.4 Pulse 85 Resp 18 B/P (MAP) 116/104 (108) Pulse Ox 96 O2 Delivery Room Air Capillary Refill : Progress Note : Time: 11:09 Progress Note The patient's workup in the emergency department demonstrated an unremarkable CBC, urinalysis, and complete metabolic panel. The patient's CT of the abdomen and pelvis demonstrated no pathology in the abdomen or pelvis. There was a questionable left lower lobe infiltrate on the CT. Chest x-ray failed to demonstrate evidence of an infiltrate. The patient received pain medication and antibiotics intravenously in the emergency department with significant improvement in her symptoms. I discussed the findings with the patient and her . They elected to drive course of pain medications and antibiotics at home. They'll follow up with their physician, Dr. Villagran, in [place] on Sunday. They were comfortable with returning the emergency department if they have any further problems or questions. 1130 a.m. I reexamined the patient's time of discharge. She continued to have the same pain in the left lower quadrant with palpation. No masses or rebound were appreciated. I discussed the patient's presentation with her and learned that she had had similar episodes in the past due to ovarian cysts. This apparently is a common condition and her family. Her last menstrual period was a week ago. I'm ordering an ultrasound of the pelvis for further evaluation of a possible ovarian cyst. 1250 p.m. The patient's ultrasound of the pelvis including transvaginal probe demonstrated free fluid suggestive of a ruptured ovarian cyst. Departure Impression Impression: Primary Impression: Abdominal pain Qualified Codes: R10.32 - Left lower quadrant pain Disposition: HOME, SELF-CARE Condition: Improved Departure-Patient Inst. Decision time for Depature: 11:13 Referrals: ADRIEL VILLAGRAN MD (PCP) Primary Care Physician Patient Instructions: Acute Abdomen (Belly Pain), Adult (DC) Add. Discharge Instructions: Hydrocodone and Zofran for pain and nausea respectively. Rest at home this weekend. Follow-up with your doctor on Sunday. Return if any problems or questions. All discharge instructions reviewed with patient and/or family. Voiced understanding. Scripts No Active Prescriptions or Reported Meds AMY GODDARD MD Nov 10, 2017 08:46
[2017-11-10] MEDS ORDERED: RT-ALBUTEROL SULF 2.5 MG/3 ML PRE-MIX VIAL INH ONE (08:56)
[2017-11-10] MEDS ORDERED: fentaNYL INJECTION 100 MCG/2 ML AMP IVP ONE (09:00)
[2017-11-10] MEDS ORDERED: ONDANSETRON 4 MG/2 ML (SDV) Z0FRAN IVP ONE (09:00)
[2017-11-10 09:27] LABS: BASOPHILS # (AUTO) 0.1 10^3/uL (0.0-0.1); BASOPHILS % (AUTO) 1 % (0-10); EOSINOPHILS # (AUTO) 0.2 10^3/uL (0.0-0.3); EOSINOPHILS % (AUTO) 3 % (0-10); LYMPHOCYTES % (AUTO) 28 % (12-44); MEAN CORPUSCULAR HEMOGLOBIN 27 PG (25-34); MEAN CORPUSCULAR HGB CONC 33 G/DL (32-36); MEAN CORPUSCULAR VOLUME 80 FL (80-99); MEAN PLATELET VOLUME 10.5 FL (7.4-10.4); MONOCYTES # (AUTO) 0.5 X 10^3 (0.0-1.0); MONOCYTES % (AUTO) 8 % (0-12); NEUTROPHILS # (AUTO) 4.3 X 10^3 (1.8-7.8); NEUTROPHILS % (AUTO) 60 % (42-75); PLATELET COUNT 294 10^3/uL (130-400); RED CELL DISTRIBUTION WIDTH 14.4 % (10.0-14.5); WHITE BLOOD COUNT 7.1 10^3/uL (4.3-11.0)
[2017-11-10 09:32] LABS: BILIRUBIN,URINE NEGATIVE (NEGATIVE); KETONES,URINE NEGATIVE (NEGATIVE); LEUKOCYTE ESTERASE ,URINE NEGATIVE (NEGATIVE); NITRITE,URINE NEGATIVE (NEGATIVE); PH,URINE 6.5 (5-9); PROTEIN,URINE 1+ (NEGATIVE); UROBILINOGEN,URINE NORMAL (NORMAL)
--- NOTE | 2017-11-10 09:50 | Diagnostic Imaging Report ---
PROCEDURE: CT urinary tract, rule out kidney stone. TECHNIQUE: Multiple contiguous axial images were obtained through the abdomen and pelvis without the use of intravenous contrast. INDICATION: Left flank pain with vomiting COMPARISON: 05/19/2015 FINDINGS: Evaluation of the abdominal viscera is mildly limited without contrast. Lower chest: Sub-solid groundglass opacities in the posterior left lower lobe. Otherwise, lung bases are clear. Peritoneum: No free intraperitoneal air or fluid. Liver and biliary system: Unenhanced liver is normal. The gallbladder is normal. No biliary duct dilation. Spleen and Pancreas: Spleen is normal. Unenhanced pancreas is grossly normal. Adrenals: Normal. tract: No renal or ureteral calculi. No obstructive uropathy. Uterus and ovaries are normal in appearance. GI tract: Stomach is decompressed. No bowel obstruction. No pericolonic inflammatory changes. Status post appendectomy. Vasculature and Lymph nodes: Normal caliber aorta. No abdominal or pelvic lymphadenopathy. Musculoskeletal: No concerning osseous lesion. IMPRESSION: 1. Groundglass opacities in left lower lobe are likely due to an infectious process. 2. No urinary tract calculi or obstructive uropathy. 3. Status post appendectomy. Dictated by: Dictated on workstation # [id number]
[2017-11-10 09:53] LABS: ALANINE AMINOTRANSFERASE 22 U/L (0-55); ALBUMIN 3.8 GM/DL (3.2-4.5); ANION GAP 8 MMOL/L (5-14); ASPARTATE AMINO TRANSFERASE 21 U/L (5-34); BILIRUBIN,TOTAL 0.3 MG/DL (0.1-1.0); BLOOD UREA NITROGEN 11 MG/DL (7-18); BUN/CREATININE RATIO 16; CALCIUM 9.2 MG/DL (8.5-10.1); CARBON DIOXIDE 25 MMOL/L (21-32); CHLORIDE 108 MMOL/L (98-107); CREATININE SERUM 0.69 MG/DL (0.60-1.30); GFR ESTIMATED > 60; GLUCOSE 101 MG/DL (70-105); LIPASE 22 U/L (8-78); POTASSIUM 4.2 MMOL/L (3.6-5.0); SODIUM 141 MMOL/L (135-145); TOTAL PROTEIN 7.5 GM/DL (6.4-8.2)
--- NOTE | 2017-11-10 10:19 | Diagnostic Imaging Report ---
INDICATION: Lower abdominal pain starting last night. TECHNIQUE: Two view chest 10:27 AM CORRELATION STUDY: 08/18/2015 FINDINGS: Heart size and mediastinum borderline. Vasculature within normal limits. The lungs are clear with no consolidating infiltrate. There is no significant pleural effusion or pneumothorax. Visualized osseous structures are unremarkable. IMPRESSION: 1. Borderline heart size without failure or otherwise acute findings of the chest. Dictated by: Dictated on workstation # [id number]
[2017-11-10] MEDS ORDERED: KETOROLAC 30 MG/ML VIAL ONE (11:30)
[2017-11-10] MEDS ORDERED: KETOROLAC 30 MG/ML VIAL IVP ONE (11:30)
--- NOTE | 2017-11-10 12:36 | Diagnostic Imaging Report ---
US NON OB PELVIS COMP/TRANSVAG TECHNIQUE: Transabdominal and transvaginal grayscale, color Doppler and pulse duplex imaging of the pelvis was performed. INDICATION: Pelvic pain. FINDINGS: The uterus measures 8.7 x 6.1 x 4.7 cm. The myometrium is normal in echogenicity without discrete mass. The endometrium measures up to 0.8 cm where visualized, and is normal in echogenicity. The right ovary measures 4.6 x 3.5 x 2.5 cm. The left ovary measures 3.3 x 2.8 x 2.6 cm. Both ovaries are physiologic in appearance with small subcentimeter follicles present. Blood flow is seen in both ovaries on color Doppler imaging. No suspicious adnexal mass or fluid collection. Trace simple free pelvic fluid is likely physiologic in nature. IMPRESSION: Normal pelvic ultrasound with physiologic appearance of the ovaries and uterus. No ovarian torsion. Dictated by: Dictated on workstation # [id number]
[2017-11-10 13:03] VITALS: BP 112/84
[2017-11-10] MEDS ORDERED: RT-ALBUTEROL SULF 2.5 MG/3 ML PRE-MIX VIAL INH SCH (21:00)
== END 2017-11-10 13:03 | disposition home or self-care (01) ==
LOC: EDUNIT# 08:21 → ER 08:23
DX: R10.32 Left lower quadrant pain (principal); Z90.49 Acquired absence of other specified parts of digestive tract; Z98.890 Other specified postprocedural states
CPT/HCPCS: 36415; 71020; 74176; 76830; 76856; 80053; 81000; 83690; 84703; 85025; 94640; 94664

== ENCOUNTER 2018-02-24 14:18 | Emergency (ER) | payer MEDICAID ==
[~2018-02-24] VITALS: Ht 172.7 cm; Wt 147.9 kg
[~2018-02-24 14:18] MED LIST changes: -HYDR-3812 PO; +NAPR-915 PO; -NAPR500T4 PO
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
[2018-02-24 14:45] LABS: BASOPHILS # (AUTO) 0.1 10^3/uL (0.0-0.1); BASOPHILS % (AUTO) 1 % (0-10); EOSINOPHILS # (AUTO) 0.2 10^3/uL (0.0-0.3); EOSINOPHILS % (AUTO) 2 % (0-10); HEMATOCRIT 37 % (35-52); HEMOGLOBIN 12.4 G/DL (11.5-16.0); LYMPHOCYTES # (AUTO) 2.5 X 10^3 (1.0-4.0); LYMPHOCYTES % (AUTO) 26 % (12-44); MEAN CORPUSCULAR HEMOGLOBIN 27 PG (25-34); MEAN CORPUSCULAR HGB CONC 33 G/DL (32-36); MEAN CORPUSCULAR VOLUME 80 FL (80-99); MEAN PLATELET VOLUME 10.5 FL (7.4-10.4); MONOCYTES # (AUTO) 0.7 X 10^3 (0.0-1.0); MONOCYTES % (AUTO) 7 % (0-12); NEUTROPHILS # (AUTO) 6.2 X 10^3 (1.8-7.8); NEUTROPHILS % (AUTO) 64 % (42-75); PLATELET COUNT 313 10^3/uL (130-400); RED BLOOD COUNT 4.66 10^6/uL (4.35-5.85); RED CELL DISTRIBUTION WIDTH 14.5 % (10.0-14.5); WHITE BLOOD COUNT 9.7 10^3/uL (4.3-11.0)
[2018-02-24] MEDS ORDERED: ONDANSETRON 4 MG/2 ML (SDV) Z0FRAN IVP ONE (14:45)
[2018-02-24] MEDS ORDERED: fentaNYL INJECTION 100 MCG/2 ML AMP IVP ONE (14:45)
[2018-02-24 15:07] LABS: BUN/CREATININE RATIO 15; CALCIUM 9.2 MG/DL (8.5-10.1); CARBON DIOXIDE 23 MMOL/L (21-32); CHLORIDE 105 MMOL/L (98-107); CREATININE SERUM 0.78 MG/DL (0.60-1.30); GFR ESTIMATED > 60; GLUCOSE 92 MG/DL (70-105); POTASSIUM 3.7 MMOL/L (3.6-5.0); SODIUM 136 MMOL/L (135-145)
[2018-02-24 16:10] LABS: BILIRUBIN,URINE NEGATIVE (NEGATIVE); CLARITY,URINE CLEAR; COLOR,URINE YELLOW; GLUCOSE, URINE (UA) NEGATIVE (NEGATIVE); KETONES,URINE NEGATIVE (NEGATIVE); LEUKOCYTE ESTERASE ,URINE NEGATIVE (NEGATIVE); NITRITE,URINE NEGATIVE (NEGATIVE); PH,URINE 6 (5-9); PROTEIN,URINE NEGATIVE (NEGATIVE); UROBILINOGEN,URINE NORMAL (NORMAL)
[2018-02-24 16:16] LABS: BACTERIA,URINE NEGATIVE /HPF; SQUAMOUS EPITHELIAL CELL,UR 0-2 /HPF
--- NOTE | 2018-02-24 17:12 | Diagnostic Imaging Report ---
EXAM: US OB transvaginal INDICATION: . Abdominal cramping. Unknown LMP. COMPARISON: None. FINDINGS: There is an irregular-shaped nonspecific fluid collection within the endometrial canal which measures up to 2.3 x 1.2 cm. There is no identifiable pole within this fluid collection. The uterus is otherwise normal in echogenicity. The ovaries are not well seen due to overlying bowel gas. IMPRESSION: Irregular shaped nonspecific fluid collection within the endometrial canal measures up to 2.3 cm. There is no pole identified. Findings are suspicious for a failed given the reported elevated serum beta HCG. Recommend repeat ultrasound in 7 days further characterization. Dictated by: Dictated on workstation # [id number]
[2018-02-24] MEDS ORDERED: RX-ONDANSETRON 4 MG ODT (ZOFRAN) PPK #4 SL STA (17:36)
--- NOTE | 2018-02-24 17:39 | ED Abdominal Pain ---
General Chief Complaint: -Female Stated Complaint: POSS MISCARRIAGE,CRAMPING,FEVER Nursing Triage Note: patient reports bilateral lower abdomen cramping and 'contractions' patient denies bleeding. patient reports that she was told she was but was told this would not produce a baby Sepsis Screen: No Definite Risk Allergies and Home Medications Allergies Coded Allergies: No Known Drug Allergies (Unverified , 07/11/10) Home Medications No Active Prescriptions or Reported Meds Past Fxbufys-Pwsmzq-Kzdrif Hx Patient Social History Alcohol Use: Denies Use Recreational Drug Use: No Smoking Status: Former Smoker Type Used: Cigarettes Recent Foreign Travel: No Contact w/Someone Who Travel: No Recent Infectious Disease Expo: No Recent Hopitalizations: No Immunizations Up To Date Tetanus Booster (TDap): Unknown PED Vaccines UTD: No Date of Influenza Vaccine: Aug 26, 2012 Seasonal Allergies Seasonal Allergies: No Surgeries History of Surgeries: Yes (LEFT SHOULDER 04/09 AND 2008, X 3) Surgeries: Adenoidectomy, Appendectomy, Section, Orthopedic, Tonsillectomy Respiratory History of Respiratory Disorde: No Cardiovascular History of Cardiac Disorders: No Neurological History of Neurological Disord: No Reproductive System Hx Reproductive Disorders: No Sexually Transmitted Disease: Yes (CHLAMYDIA 2009, Gonnerhea 2011, beginning of preg ) HIV/AIDS: No Female Reproductive Disorders: Denies Gastrointestinal History of Gastrointestinal Di: No Musculoskeletal History of Musculoskeletal Dis: Yes (LEFT SHOULDER PROBLEMS) Musculoskeletal Disorders: Arthritis Endocrine History of Endocrine Disorders: No Cancer History of Cancer: No Psychosocial History of Psychiatric Problem: No Integumentary History of Skin or Integumenta: No Blood Transfusions History of Blood Disorders: No Adverse Reaction to a Blood Tr: No Family Medical History Significant Family History: No Pertinent Family Hx Family Medial History: Diabetes mellitus 19 FATHER 19 MOTHER Hypertension 19 MOTHER Physical Exam Vital Signs VS - Last 72 Hours, by Label 02/24/18 14:24 Temp 98.0 Pulse 90 Resp 20 B/P (MAP) 158/96 (116) Pulse Ox 99 Capillary Refill : Less Than 3 Seconds Progress/Results/Core Measures Results/Orders Lab Results Laboratory Tests Test 02/24/18 14:35 02/24/18 16:00 Range/Units White Blood Count 9.7 4.3-11.0 10^3/uL Red Blood Count 4.66 4.35-5.85 10^6/uL Hemoglobin 12.4 11.5-16.0 G/DL Hematocrit 37 35-52 % Mean Corpuscular Volume 80 80-99 FL Mean Corpuscular Hemoglobin 27 25-34 PG Mean Corpuscular Hemoglobin Concent 33 32-36 G/DL Red Cell Distribution Width 14.5 10.0-14.5 % Platelet Count 313 130-400 10^3/uL Mean Platelet Volume 10.5 H 7.4-10.4 FL Neutrophils (%) (Auto) 64 42-75 % Lymphocytes (%) (Auto) 26 12-44 % Monocytes (%) (Auto) 7 0-12 % Eosinophils (%) (Auto) 2 0-10 % Basophils (%) (Auto) 1 0-10 % Neutrophils # (Auto) 6.2 1.8-7.8 X 10^3 Lymphocytes # (Auto) 2.5 1.0-4.0 X 10^3 Monocytes # (Auto) 0.7 0.0-1.0 X 10^3 Eosinophils # (Auto) 0.2 0.0-0.3 10^3/uL Basophils # (Auto) 0.1 0.0-0.1 10^3/uL Sodium Level 136 135-145 MMOL/L Potassium Level 3.7 3.6-5.0 MMOL/L Chloride Level 105 98-107 MMOL/L Carbon Dioxide Level 23 21-32 MMOL/L Anion Gap 8 5-14 MMOL/L Blood Urea Nitrogen 12 7-18 MG/DL Creatinine 0.78 0.60-1.30 MG/DL Estimat Glomerular Filtration Rate > 60 BUN/Creatinine Ratio 15 Glucose Level 92 70-105 MG/DL Calcium Level 9.2 8.5-10.1 MG/DL Human Chorionic Gonadotropin, Quant 53987 H <5 MIU/ML Urine Color YELLOW Urine Clarity CLEAR Urine pH 6 5-9 Urine Specific [place] 1.020 1.016-1.022 Urine Protein NEGATIVE NEGATIVE Urine Glucose (UA) NEGATIVE NEGATIVE Urine Ketones NEGATIVE NEGATIVE Urine Nitrite NEGATIVE NEGATIVE Urine Bilirubin NEGATIVE NEGATIVE Urine Urobilinogen NORMAL NORMAL MG/DL Urine Leukocyte Esterase NEGATIVE NEGATIVE Urine RBC (Auto) NEGATIVE NEGATIVE Urine RBC NONE /HPF Urine WBC NONE /HPF Urine Squamous Epithelial Cells 0-2 /HPF Urine Crystals NONE /LPF Urine Bacteria NEGATIVE /HPF Urine Casts NONE /LPF Urine Mucus NEGATIVE /LPF Urine Culture Indicated NO My Orders Orders - BILLY JEFFRIES MD Basic Metabolic Panel (02/24/18 14:33) Cbc With Automated Diff (02/24/18 14:33) Hcg,Quantitative (02/24/18 14:33) Saline Lock/Iv-Start (02/24/18 14:33) Fentanyl Injection (Sublimaze Injection (02/24/18 14:45) Ondansetron Injection (Zofran Injectio (02/24/18 14:45) Ua Culture If Indicated (02/24/18 15:47) Us Ob Transvaginal 40[address] (02/24/18 15:47) Ketorolac Injection (Toradol Injection) (02/24/18 17:45) Rx-Ondansetron Po (Rx-Zofran Po) (02/24/18 17:36) Rx-Hydrocodone/Apap 5-325 Mg (Rx-Vicodin (02/24/18 17:45) Medications Given in ED Current Medications Medications Dose Ordered Sig/Zeeshan Route Start Time Stop Time Status Last Admin Dose Admin Fentanyl Citrate 50 mcg ONCE ONCE IVP 02/24/18 14:45 02/24/18 14:46 DC 02/24/18 14:42 50 MCG Ondansetron HCl 4 mg ONCE ONCE IVP 02/24/18 14:45 02/24/18 14:46 DC 02/24/18 14:42 4 MG Vital Signs/I&O Vital Sign - Last 12Hours 02/24/18 14:24 Temp 98.0 Pulse 90 Resp 20 B/P (MAP) 158/96 (116) Pulse Ox 99 Blood Pressure Mean: 116 Departure Impression Impression: Primary Impression: Incomplete amnion in first trimester Qualified Codes: O41.8X10 - Other specified disorders of amniotic fluid and membranes, first trimester, not applicable or unspecified Disposition: 01 HOME, SELF-CARE Condition: Improved Departure-Patient Inst. Decision time for Depature: 17:30 Referrals: ADRIEL VILLAGRAN MD (PCP/Family) Primary Care Physician Patient Instructions: Miscarriage Add. Discharge Instructions: Take ibuprofen up to 600 mg every 6 hours as needed for pain. Add hydrocodone one tablet every 4 hours as needed for pain not controlled by ibuprofen. Use Zofran (ondansetron) dissolved under your tongue every 4 hours as needed for nausea and vomiting. Please contact Dr. Campbell's office tomorrow morning for further instructions. Return to the ER if you have worsening symptoms such as pain not controlled by your oral medications, uncontrolled vomiting, fevers over 100, etc. All discharge instructions reviewed with patient and/or family. Voiced understanding. Scripts No Active Prescriptions or Reported Meds BILLY JEFFRIES MD Feb 24, 2018 17:38
[2018-02-24] MEDS ORDERED: RX-HYDROCODONE/APAP 5/325 MG #4 TAB PK PO PRN (17:45)
[2018-02-24] MEDS ORDERED: KETOROLAC 30 MG/ML VIAL IVP ONE (17:45)
[2018-02-24 17:48] VITALS: BP 158/96
[2018-02-27] MEDS ORDERED: OXYC-465 PO (14:28)
== END 2018-02-24 17:48 | disposition home or self-care (01) ==
LOC: EDUNIT# 14:18 → ER 14:19
DX: O41.8X10 Other specified disorders of amniotic fluid and membranes, first trimester, not applicable or unspecified (principal); Z90.49 Acquired absence of other specified parts of digestive tract; Z87.59 Personal history of other complications of pregnancy, childbirth and the puerperium; Z90.89 Acquired absence of other organs; Z87.39 Personal history of other diseases of the musculoskeletal system and connective tissue; Z87.891 Personal history of nicotine dependence; Z3A.00 Weeks of gestation of pregnancy not specified
CPT/HCPCS: 36415; 76817; 80048; 81000; 84702; 85025; 96374; 96375

== ENCOUNTER 2018-02-26 05:37 | Outpatient (CLI) | payer MEDICAID ==
[~2018-02-26] VITALS: Ht 172.7 cm; Wt 148.8 kg
[2018-02-27] MEDS ORDERED: OXYC-465 PO (14:28)
== END 2018-02-26 11:19 ==
LOC: PREOP 05:37
PROVIDERS: ATTEND Obstetrics & Gynecology
DX: Z01.818 Encounter for other preprocedural examination (principal); O02.0 Blighted ovum and nonhydatidiform mole

== ENCOUNTER → 2018-02-27 | Day surgery (SDC) | payer MEDICAID ==
[~2018-02-27] VITALS: Ht 172.7 cm; Wt 148.8 kg
[~2018-02-27] MED LIST changes: +D5 LR IV SOLUTION 1,000 ML IV SCH; +KETOROLAC 30 MG/ML VIAL IVP ONE; +LACTATED RINGERS 1,000 ML IV PRN; +LIDOCAINE PF 2% 5 ML (XYLOCAINE) VIAL ONE; +MEPERIDINE (DEMEROL) INJ 100 MG/ML IM ONE; +MEPERIDINE (DEMEROL) INJ 50 MG/ML IVP PRN; +MIDAZOLAM 2 MG/2 ML (VERSED) VIAL ONE; +ONDANSETRON 4 MG/2 ML (SDV) Z0FRAN IVP PRN; +PROMETHAZINE INJ 25 MG/ML (PHENERGAN) AMP IM ONE; +SEVOFLURANE (ULTANE) 15 ML INHAL SOLN ONE; +ceFAZolin 1 GM/NS 100 ML IVPB IV ONE; +ceFAZolin INJECTION 1,000 MG in NS (IVPB) 100 ML IV ONE; +fentaNYL INJECTION 100 MCG/2 ML AMP ONE; +oxyCODONE/APAP 10/325MG (PERCOCET 10) TABLET PO PRN; +proPOfol 200 MG/20 ML (DIPRIVAN) VIAL IV ONE
--- OUTSIDE RECORDS SUMMARY | 2018-02-27 12:59 | XMS REPORT | Clinical Summary ---
Author Author [facility] Organization [facility] Address Unknown Phone Unavailable Care Team Providers Care Restaurant Front Manager Name Role Phone Batsheva Kilgore MD PCP Unavailable Source Comments Some departments are not documenting in the electronic medical record. If you do not see the information that you expected, contact Release of Information in the Health Information Management department at [phone] for further assistance in locating additional records.[facility] Allergies No Known Allergies Current Medications [...] Taken Blood Pressure 126/88 12/26/2016 9:53 AM TASSEL SNIPPER Pulse 96 12/26/2016 9:53 AM TASSEL SNIPPER Temperature 36.9 C (98.4 F) 12/21/2016 7:00 AM TASSEL SNIPPER Respiratory Rate - - Oxygen Saturation 99% 12/21/2016 7:00 AM TASSEL SNIPPER Inhaled Oxygen - - Concentration Weight 137.7 kg (303 lb 9.6 oz) 12/26/2016 9:53 AM TASSEL SNIPPER Height 172.7 cm (5' 8") 12/26/2016 9:53 AM TASSEL SNIPPER Body Mass Index 46.16 12/26/2016 9:53 AM TASSEL SNIPPER Plan of Treatment Health Maintenance Due Date Last Done Comments PHYSICAL (COMPREHENSIVE) 1999 EXAM HPV VACCINES (1 of 3 - 2003 Female 3 Dose Series) PERTUSSIS VACCINE 2003 HIV SCREENING 2007 TETANUS VACCINE 2009 CERVICAL CANCER SCREENING 2013 INFLUENZA VACCINE 08/26/2018 Results Not on filefrom Last 3 Months
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
[2018-02-27 13:27] VITALS: BP 138/93
--- NOTE | 2018-02-27 14:24 | Progress Note-Pre Operative ---
Pre-Operative Progress Note H&P Reviewed The H&P was reviewed, patient examined and no changes noted. Date Seen by Provider: Feb 27, 2018 Time Seen by Provider: 14:24 Date H&P Reviewed: Feb 27, 2018 Time H&P Reviewed: 14:24 Pre-Operative Diagnosis: blighted ovum PEPE MARTINEZ MD Feb 27, 2018 2:24 pm
--- NOTE | 2018-02-27 14:25 | Progress Note-Post Operative ---
Post-Operative Progess Note Surgeon (s)/Para Educator (s) Surgeon PEPE MARTINEZ MD Para Educator: No one Pre-Operative Diagnosis blighted ovum Post-Operative Diagnosis Same with pathology pending Procedure & Operative Findings Date of Procedure 02/27/18 Procedure Performed/Findings Obstetric D&C Anesthesia Type GETA Estimated Blood Loss Estimated blood loss (mL): 50cc Specimens/Packing Specimens Removed Uterine contents/products of conception Packing: None PEPE MARTINEZ MD Feb 27, 2018 14:25
--- NOTE | 2018-02-27 14:29 | Discharge Instructions ---
Discharge Instructions Discharge Medications New, Converted or Re-Newed RX: RX on Chart Patient Instructions Patient Instructions: As directed Return to The Hospital For: As directed Activity & Diet Discharge Diet: No Restrictions Activity as Tolerated: No Orders-Post D/C & Referrals Follow Up Appt: Call to make follow up appt. for patient in 2 weeks. Activity: Rest for 24 hours, than as tolerated. Diet: As tolerated-Clear Liquids only if nauseated. May shower or tub bathe as desired. No driving for 24 hours, no alcoholic beverages for 24 hours, and nothing per vagina (no tampons, douching, or intercoarse) for 2 weeks. Patient to return to the clinic as soon as possible for: Temperature greater than 101F, Severe Pain, Foul discharge from incision or vagina, Excessive Bleeding (more than a period). PEPE MARTINEZ MD Feb 27, 2018 2:29 pm
[2018-02-27] MEDS: morphine INJ 10 MG/ML 1ML (SYR OR VIAL) IVP PRN ×2 (15:10→15:20)
--- NOTE | 2018-02-27 15:43 | Anesthesia-General Post-Op ---
General Patient Condition Mental Status/LOC: Same as Preop Cardiovascular: Satisfactory Nausea/Vomiting: Absent Respiratory: Satisfactory Pain: Controlled Complications: Absent Post Op Complications Complications None Follow Up Care/Instructions Patient Instructions None needed. Anesthesia/Patient Condition Patient Condition Patient is doing well, no complaints, stable vital signs, no apparent adverse anesthesia problems. No complications reported per nursing. PRESTON LEÓN CRNA Feb 27, 2018 15:43
[2018-02-27 15:45] VITALS: BP 138/97
[2018-02-27 16:26] VITALS: BP 138/97
--- NOTE | 2018-02-27 21:15 | OPERATIVE REPORT ---
DATE OF SERVICE: 02/27/2018 PREOPERATIVE DIAGNOSIS: Blighted ovum. POSTOPERATIVE DIAGNOSIS: Blighted ovum. OPERATIVE PROCEDURE: D and C completion or removal of blighted ovum. OPERATIVE DESCRIPTION: With the patient in supine position under satisfactory general anesthesia, she was repositioned in dorsal lithotomy position in the [facility], prepped and draped in the usual fashion for vaginal surgery and the urinary bladder drained with a straight catheter. A weighted speculum was placed in the posterior fornix of the vagina. The cervix was exposed and grasped anteriorly with single tooth tenaculum. Uterus was sounded to 14 cm with uterine sound. The cervix was then serially dilated with Jorge L dilators to a #20 Jorge L and then a #9, 10 Fito dilator was the final step in dilation. A #9 curved suction curette was introduced into the uterine cavity and a large amount of trophoblastic and decidual appearing tissue, blood clot, amniotic fluid and debris was evacuated. The endometrial cavity sharply curettaged in all 4 quadrants to good uterine cry and then the curved suction curette was reintroduced and all blood clot and debris evacuated. The tenaculum was removed from the cervix. There was some bleeding from both puncture sites. They were touched with silver nitrate to affect the hemostasis. There was minimal bleeding now from the cervical os. The uterus was decreased in size to approximately 8 to 10 week size from its preoperative size of approximately 12 to 14 weeks. The uterus contracted nicely. Sponge and needle counts were correct on completion of this procedure. Estimated blood loss for procedure was between 50 and 100 mL. The patient tolerated the procedure well, was uneventfully awakened from her general anesthesia and transferred to recovery in stable condition with plans for discharge home PAR. Job ID: [id number] DocumentID: [id number] Dictated Date: 02/27/2018 14:52:11 Furnace Hand Date: 02/27/2018 19:36:58 Dictated By: PEPE MARTINEZ MD
== END | disposition home or self-care (01) ==
LOC: SDC 12:45
PROVIDERS: ATTEND Obstetrics & Gynecology
DX: O02.0 Blighted ovum and nonhydatidiform mole (principal); Z11.2 Encounter for screening for other bacterial diseases
CPT/HCPCS: 87081

== ENCOUNTER 2019-01-15 15:01 | Outpatient (CLI) | payer MEDICAID ==
[~2019-01-15] VITALS: Ht 172.7 cm; Wt 153.5 kg
[~2019-01-15 15:01] MED LIST changes: -D5 LR IV SOLUTION 1,000 ML IV SCH; +HYDR-4226 PO; -HYDR-757 PO; -KETOROLAC 30 MG/ML VIAL IVP ONE; -LACTATED RINGERS 1,000 ML IV PRN; -LIDOCAINE PF 2% 5 ML (XYLOCAINE) VIAL ONE; -MEPERIDINE (DEMEROL) INJ 100 MG/ML IM ONE; -MEPERIDINE (DEMEROL) INJ 50 MG/ML IVP PRN; +METR-145 PO; -METR500T21 PO; -MIDAZOLAM 2 MG/2 ML (VERSED) VIAL ONE; -ONDANSETRON 4 MG/2 ML (SDV) Z0FRAN IVP PRN; -PROMETHAZINE INJ 25 MG/ML (PHENERGAN) AMP IM ONE; -RANI150T15 PO; +RANI150T46 PO; -SEVOFLURANE (ULTANE) 15 ML INHAL SOLN ONE; -ceFAZolin 1 GM/NS 100 ML IVPB IV ONE; -ceFAZolin INJECTION 1,000 MG in NS (IVPB) 100 ML IV ONE; -fentaNYL INJECTION 100 MCG/2 ML AMP ONE; -oxyCODONE/APAP 10/325MG (PERCOCET 10) TABLET PO PRN; -proPOfol 200 MG/20 ML (DIPRIVAN) VIAL IV ONE
--- NOTE | 2019-01-15 15:12 | NUR ---
JAMES HERNDON presented to unit via from ED, accompanied by self, with c/o BACK PAIN. JAMES HERNDON weighed, gowned, voided, and to bed. EFHM and TOCO applied, VS taken. JAMES HERNDON oriented to bed controls, call light, TV, heat, and A/C controls.
[2019-01-15 15:43] LABS: BILIRUBIN,URINE NEGATIVE (NEGATIVE); CLARITY,URINE CLEAR; COLOR,URINE YELLOW; GLUCOSE, URINE (UA) NEGATIVE (NEGATIVE); KETONES,URINE NEGATIVE (NEGATIVE); LEUKOCYTE ESTERASE ,URINE 1+ (NEGATIVE); NITRITE,URINE NEGATIVE (NEGATIVE); PH,URINE 6 (5-9); PROTEIN,URINE 1+ (NEGATIVE); UROBILINOGEN,URINE NORMAL (NORMAL)
[2019-01-15 15:52] LABS: BACTERIA,URINE FEW /HPF; WBC,URINE 0-2 /HPF
[2019-01-15] MEDS ORDERED: FLU QUADRIvalent (5+ YOA) 2018-2019 (AFLURIA) 0.5 ML IM ONE (16:00)
[2019-01-15 16:05] LABS: BASOPHILS % (AUTO) 0 % (0-10); EOSINOPHILS # (AUTO) 0.5 10^3/uL (0.0-0.3); EOSINOPHILS % (AUTO) 4 % (0-10); HEMATOCRIT 34 % (35-52); HEMOGLOBIN 11.8 G/DL (11.5-16.0); LYMPHOCYTES # (AUTO) 2.2 X 10^3 (1.0-4.0); LYMPHOCYTES % (AUTO) 18 % (12-44); MEAN CORPUSCULAR HEMOGLOBIN 29 PG (25-34); MEAN CORPUSCULAR HGB CONC 35 G/DL (32-36); MEAN CORPUSCULAR VOLUME 83 FL (80-99); MONOCYTES # (AUTO) 0.9 X 10^3 (0.0-1.0); MONOCYTES % (AUTO) 8 % (0-12); NEUTROPHILS # (AUTO) 8.4 X 10^3 (1.8-7.8); NEUTROPHILS % (AUTO) 70 % (42-75); PLATELET COUNT 275 10^3/uL (130-400); RED CELL DISTRIBUTION WIDTH 14.4 % (10.0-14.5)
--- NOTE | 2019-01-15 16:10 | NUR ---
dr li called with labs new orders received.
--- NOTE | 2019-01-15 16:20 | NUR ---
no contractions noted by palpation or on monitor.
--- NOTE | 2019-01-15 16:20 | NUR ---
non contractions noted. unable to trace constant FHR r/t movement and mothers size. FM noted by RN and patient.
--- NOTE | 2019-01-15 16:28 | NUR ---
EFM removed. d/c home. reports Active influenza at home with child. Dr manning notified . new orders received.
--- NOTE | 2019-01-15 16:35 | NUR ---
RX called into pharmacy. out of WS via ambulation to home self care with d/c papers in hand. no s/s of distress.
--- NOTE | 2019-01-16 10:26 | Physician Query-Final Dx ---
REMEDIOS CHANEY 01/16/19 1026: Clinic Account Progress/Dx Physician Query: Please give a diagnosis and please include the weeks of gestation thank you Date of Service Jan 15, 2019 at 15:01 PEPE MARTINEZ MD 01/17/19 0837: Clinic Account Progress/Dx DIAGNOSIS: Diagnosis 24 WEEKS FALSE LABOR REMEDIOS CHANEY Jan 16, 2019 10:26 PEPE MARTINEZ MD Jan 17, 2019 08:37
== END 2019-01-15 16:35 | disposition home or self-care (01) ==
LOC: WSo 15:01 → LDRP 15:01 → WSo 16:35
PROVIDERS: ATTEND Obstetrics & Gynecology
DX: O47.02 False labor before 37 completed weeks of gestation, second trimester (principal); Z3A.24 24 weeks gestation of pregnancy
CPT/HCPCS: 36415; 81000; 85025; 87077; 87088; 99213

== ENCOUNTER 2019-02-02 14:58 | Outpatient (CLI) | payer MEDICAID ==
[~2019-02-02] VITALS: Ht 172.7 cm; Wt 157.9 kg
--- NOTE | 2019-02-02 15:02 | NUR ---
JAMES HERNDON presented to unit via ambulation from ED, with c/o BACK PAIN,LEAKING. JAMES HERNDON weighed, gowned, voided, and to bed. EFHM and TOCO applied, VS taken. JAMES HERNDON oriented to bed controls, call light, TV, heat, and A/C controls.
[2019-02-02 15:15] VITALS: BP 137/91
--- NOTE | 2019-02-02 15:15 | NUR ---
pt reports falling "flat" yesterday around 1400 on her abdomen. heard a noise in children's room when falling. reports +FM. c/o back pain since this a.m. denies taking Tylenol for pain. abd soft to palpation upon initial exam by this RN. denies tenderness in abd. "wetness" in panties today while @ work.
[2019-02-02 15:25] VITALS: BP 138/83
[2019-02-02] MEDS ORDERED: FLU QUADRIvalent (5+ YOA) 2018-2019 (AFLURIA) 0.5 ML IM ONE (15:30)
--- NOTE | 2019-02-02 15:30 | NUR ---
SVE done per Alonzo Ritter RN at this time. Cervix found to be closed and thick. No fluid noted upon exam.
--- NOTE | 2019-02-02 15:34 | NUR ---
Dr. Campbell called and notified of pt arrival, c/o fall yesterday afternoon, back pain today, leaking fluid around 2pm. notified of VS, UA dipstick, FHR, ctx pattern, nitrazine, SVE, other assessment findings. Orders for tylenol and discharge rec'd. Pt to call clinic if symptoms persist or worsen.
[2019-02-02] MEDS ORDERED: ACETAMINOPHEN 500 MG TAB (TYLENOL) PO NR (15:45)
--- NOTE | 2019-02-04 11:19 | Physician Query-Final Dx ---
REMEDIOS CHANEY 02/04/19 1119: Clinic Account Progress/Dx Physician Query: Please give diagnosis Date of Service Feb 02, 2019 at 14:58 PEPE MARTINEZ MD 02/04/19 1524: Clinic Account Progress/Dx DIAGNOSIS: Diagnosis FALSE LABOR SHIV,REMEDIOS Feb 04, 2019 11:19 PEPE MARTINEZ MD Feb 04, 2019 15:24
== END 2019-02-02 16:25 | disposition home or self-care (01) ==
LOC: LDRP 14:58 → WSo 14:58
PROVIDERS: ATTEND Obstetrics & Gynecology
DX: O47.02 False labor before 37 completed weeks of gestation, second trimester (principal); Z3A.27 27 weeks gestation of pregnancy
CPT/HCPCS: 99214

== ENCOUNTER 2019-02-14 09:57 | Outpatient (CLI) | payer MEDICAID ==
[~2019-02-14] VITALS: Ht 172.7 cm; Wt 155.1 kg
--- NOTE | 2019-02-14 09:35 | NUR ---
JAMES HERNDON presented to unit via AMBULATORY FROM HOME, with c/o HIGH BLOOD PRESSURE. JAMES HERNDON weighed, gowned, voided, and to bed. EFHM and TOCO applied, VS taken. JAMES HERNDON oriented to bed controls, call light, TV, heat, and A/C controls.
[2019-02-14 09:50] VITALS: BP 135/84
[2019-02-14] MEDS ORDERED: D5 LR IV SOLUTION 1,000 ML IV SCH (10:00)
--- NOTE | 2019-02-14 10:00 | NUR ---
THIS RN CALLS DR MARTINEZ WITH PT REPORT, CO, VS/ ORDERS RECEIVED. 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
[2019-02-14] MEDS ORDERED: D5 LR IV SOLUTION 1,000 ML IV ONE (10:08)
[2019-02-14 10:43] LABS: BASOPHILS % (AUTO) 0 % (0-10); EOSINOPHILS # (AUTO) 0.4 10^3/uL (0.0-0.3); EOSINOPHILS % (AUTO) 4 % (0-10); HEMATOCRIT 33 % (35-52); HEMOGLOBIN 11.2 G/DL (11.5-16.0); LYMPHOCYTES # (AUTO) 1.8 X 10^3 (1.0-4.0); LYMPHOCYTES % (AUTO) 17 % (12-44); MEAN CORPUSCULAR HEMOGLOBIN 28 PG (25-34); MEAN CORPUSCULAR HGB CONC 34 G/DL (32-36); MEAN CORPUSCULAR VOLUME 83 FL (80-99); MEAN PLATELET VOLUME 10.9 FL (7.4-10.4); MONOCYTES # (AUTO) 0.6 X 10^3 (0.0-1.0); MONOCYTES % (AUTO) 6 % (0-12); NEUTROPHILS # (AUTO) 7.4 X 10^3 (1.8-7.8); NEUTROPHILS % (AUTO) 73 % (42-75); PLATELET COUNT 253 10^3/uL (130-400); RED CELL DISTRIBUTION WIDTH 13.9 % (10.0-14.5); WHITE BLOOD COUNT 10.2 10^3/uL (4.3-11.0)
[2019-02-14 10:45] VITALS: BP 143/84
[2019-02-14 11:06] LABS: ALANINE AMINOTRANSFERASE 14 U/L (0-55); ALBUMIN 3.1 GM/DL (3.2-4.5); ALKALINE PHOSPHATASE 80 U/L (40-136); BILIRUBIN,TOTAL 0.3 MG/DL (0.1-1.0); BUN/CREATININE RATIO 10; CALCIUM 8.7 MG/DL (8.5-10.1); CARBON DIOXIDE 24 MMOL/L (21-32); CHLORIDE 105 MMOL/L (98-107); CREATININE SERUM 0.61 MG/DL (0.60-1.30); GFR ESTIMATED > 60; GLUCOSE 95 MG/DL (70-105); POTASSIUM 3.7 MMOL/L (3.6-5.0); SODIUM 136 MMOL/L (135-145); TOTAL PROTEIN 6.2 GM/DL (6.4-8.2)
[2019-02-14 11:10] VITALS: BP 124/67
[2019-02-14 11:10] LABS: BAND NEUTROPHILS 0 %; BASOPHILS % (MANUAL) 0 %; EOSINOPHILS % (MANUAL) 2 %; LYMPHOCYTES % (MANUAL) 19 %; MONOCYTES % (MANUAL) 3 %; NEUTROPHILS % (MANUAL) 76 %; RBC MORPH NORMAL
--- NOTE | 2019-02-14 11:10 | NUR ---
THIS RN CALLED DR MARTINEZ OFFICE FOR UPDATED PT REPORT. CURRENTLY IN A PT ROOM, WILL CALL THIS RN WHEN HE IS OUT.
[2019-02-14 11:17] VITALS: BP 128/74
--- NOTE | 2019-02-14 11:29 | NUR ---
DR MARTINEZ CALLED WITH UPDATED PT REPORT, REPORT LABS AND BPs. ORDERS TO REASSUR PT AND DC TO HOME, FOLLOW UP IN OFFICE AT NEXT APPOINTMENT.
[2019-02-14 11:32] VITALS: BP 129/73
--- NOTE | 2019-02-17 22:16 | Physician Query-Final Dx ---
NIKOLAI MARTIN 02/17/19 2216: Clinic Account Progress/Dx Physician Query: Please give diagnosis Date of Service Feb 14, 2019 at 09:57 PEPE MARTINEZ MD 02/18/19 0903: Clinic Account Progress/Dx DIAGNOSIS: Diagnosis CHARISMA NIKOLAI MARTIN Feb 17, 2019 22:16 PEPE MARTINEZ MD Feb 18, 2019 09:03
== END 2019-02-14 11:45 | disposition home or self-care (01) ==
LOC: WSo 09:57 → LDRP 09:57 → WSo 11:45
PROVIDERS: ATTEND Obstetrics & Gynecology
DX: O13.9 Gestational [pregnancy-induced] hypertension without significant proteinuria, unspecified trimester (principal)
CPT/HCPCS: 36415; 80053; 82570; 83615; 84156; 84550; 85007; 85027; 96360; 99213

== ENCOUNTER 2019-02-20 09:54 | Outpatient (CLI) | payer MEDICAID ==
[~2019-02-20] VITALS: Ht 172.7 cm; Wt 153.8 kg
--- NOTE | 2019-02-20 09:38 | NUR ---
JAMES HERNDON presented to unit via amb from work,with c/o POSS LEAKING,PRESSURE,VAGINAL SPOTTING. JAMES HERNDON weighed, gowned, voided, and to bed. 0948 EFHM and TOCO applied, VS taken. JAMES HERNDON oriented to bed controls, call light, TV, heat, and A/C controls.
[2019-02-20 09:56] VITALS: BP 134/73
[2019-02-20] MEDS ORDERED: PREN1TAB79 PO (10:18)
[2019-02-20] MEDS ORDERED: AZIT250T PO (10:19)
--- NOTE | 2019-02-20 10:23 | NUR ---
AMNIO SWAB NEGATIVE. SVE BY RAMONE ARGUETA. CERVIX CLOSED AND THICK/HIGH.
--- NOTE | 2019-02-20 10:27 | NUR ---
DR. MARTINEZ NOTIFIED OF PT'S ARRIVAL, COMPLAINT, SVE. NEG AMNIO SWAB, AND REACTIVE FETUS WITH NO CTXS. ORDER FOR STRAIGHT CATH AND WET PREP.
--- NOTE | 2019-02-20 10:40 | NUR ---
1038 WET PREP PERFORMED. 1040 STRAIGHT CATH FOR URINE WITH #15 FR STRAIGHT CATH. BOTH SPECIMENS TO LAB.
[2019-02-20 10:54] LABS: BILIRUBIN,URINE NEGATIVE (NEGATIVE); CLARITY,URINE CLEAR; COLOR,URINE AMBER; GLUCOSE, URINE (UA) 1+ (NEGATIVE); KETONES,URINE 2+ (NEGATIVE); LEUKOCYTE ESTERASE ,URINE 1+ (NEGATIVE); NITRITE,URINE NEGATIVE (NEGATIVE); PH,URINE 6 (5-9); PROTEIN,URINE 2+ (NEGATIVE); UROBILINOGEN,URINE NORMAL (NORMAL)
[2019-02-20 11:07] LABS: BACTERIA,URINE TRACE /HPF; WBC,URINE RARE /HPF
[2019-02-20 11:11] VITALS: BP 135/75
--- NOTE | 2019-02-20 11:13 | NUR ---
DR. MARTINEZ NOTIFIED OF UA RESULTS AND WET PREP. ORDER TO DO PROTEIN/CREATININE RATIO AND GIVE FLUIDS.
[2019-02-20] MEDS ORDERED: D5 LR IV SOLUTION 1,000 ML IV ONE (11:22)
[2019-02-20] MEDS ORDERED: D5 LR IV SOLUTION 1,000 ML IV SCH (11:30)
--- NOTE | 2019-02-20 11:41 | NUR ---
1000 CC D5LR STARTED IV WITH A #20G INTRACATH INTHE LEFT HAND BY RAMONE RN TRA 500 CC/HR /PUMP. SITE CLEAR.
--- NOTE | 2019-02-20 11:45 | NUR ---
REACTIVE NST. EFM OFF. NO CTXS. MOD VARIABILITY FOR GESTATIONAL AGE. +FM WITH + ACCELS.
--- NOTE | 2019-02-20 11:55 | NUR ---
DR. MARTINEZ NOTIFIED OF URINE PRO/CRET RATIO. ORDER TO DISCHARGE WITH PRECAUTIONS AFTER FLUIDS INFUSED. ORDER TO REMOVE EFM IF REACTIVE NST.
--- NOTE | 2019-02-20 12:30 | NUR ---
DOZING AT INTERVALS. IV PATENT AND SITE CLEAR.
[2019-02-20] MEDS ORDERED: FLU QUADRIvalent (5+ YOA) 2018-2019 (AFLURIA) 0.5 ML IM ONE (13:00)
[2019-02-20 13:18] VITALS: BP 134/73
--- NOTE | 2019-02-20 13:35 | NUR ---
IV FLUIDS COMPLETE. IV D/C'ED. SITE CLEAR.
--- NOTE | 2019-02-20 13:45 | NUR ---
DISCHARGE INSTRUCTIONS REVIEWED WITH COPY TO PT. STATES UNDERSTANDING OF ALL INSTRUCTIONS AND NEED TO F/U SCHEDULED AND NEEDED.
[2019-02-20 13:50] VITALS: BP 134/73
--- NOTE | 2019-02-20 13:50 | NUR ---
DISMISSED AMB FROM WS IN STABLE CONDITION.
== END 2019-02-20 13:50 | disposition home or self-care (01) ==
LOC: WSo 09:54 → LDRP 09:54 → WSo 13:50
PROVIDERS: ATTEND Obstetrics & Gynecology
DX: O99.89 Other specified diseases and conditions complicating pregnancy, childbirth and the puerperium (principal); M54.5 Low back pain; Z3A.29 29 weeks gestation of pregnancy
CPT/HCPCS: 81000; 82570; 84156; 87088; 87210; 96360; 96361; 99214

== ENCOUNTER 2019-03-07 15:12 | Outpatient (CLI) | payer MEDICAID ==
[~2019-03-07] VITALS: Ht 172.7 cm; Wt 157.9 kg
--- NOTE | 2019-03-07 15:02 | NUR ---
JAMES HERNDON presented to unit via AMBULATORY from HOME, with c/o LEG SWELLING. JAMES HERNDON weighed, gowned, voided, and to bed. EFHM and TOCO applied, VS taken. JAMES HERNDON oriented to bed controls, call light, TV, heat, and A/C controls.
--- NOTE | 2019-03-07 15:05 | NUR ---
DR. MARTINEZ NOTIFIED THIS RN OF PT PRESENTING TO UNIT PRIOR TO PT ARRIVAL. ORDERS REC'D AT THAT TIME, CALL WITH RESULTS.
[~2019-03-07 15:12] MED LIST changes: +AZIT250T PO; +PREN1TAB79 PO
[2019-03-07 15:30] VITALS: BP 124/75
[2019-03-07 15:50] VITALS: BP 136/64
[2019-03-07 16:00] LABS: BASOPHILS % (AUTO) 0 % (0-10); EOSINOPHILS # (AUTO) 0.8 10^3/uL (0.0-0.3); EOSINOPHILS % (AUTO) 7 % (0-10); HEMATOCRIT 32 % (35-52); HEMOGLOBIN 10.6 G/DL (11.5-16.0); LYMPHOCYTES # (AUTO) 2.5 X 10^3 (1.0-4.0); LYMPHOCYTES % (AUTO) 23 % (12-44); MEAN CORPUSCULAR HEMOGLOBIN 27 PG (25-34); MEAN CORPUSCULAR HGB CONC 34 G/DL (32-36); MEAN CORPUSCULAR VOLUME 82 FL (80-99); MEAN PLATELET VOLUME 10.7 FL (7.4-10.4); MONOCYTES # (AUTO) 0.8 X 10^3 (0.0-1.0); MONOCYTES % (AUTO) 7 % (0-12); NEUTROPHILS # (AUTO) 6.9 X 10^3 (1.8-7.8); NEUTROPHILS % (AUTO) 63 % (42-75); PLATELET COUNT 294 10^3/uL (130-400); RED CELL DISTRIBUTION WIDTH 14.2 % (10.0-14.5); WHITE BLOOD COUNT 10.9 10^3/uL (4.3-11.0)
[2019-03-07 16:04] LABS: ALANINE AMINOTRANSFERASE 20 U/L (0-55); ALKALINE PHOSPHATASE 81 U/L (40-136); BILIRUBIN,TOTAL 0.2 MG/DL (0.1-1.0); BUN/CREATININE RATIO 15; CARBON DIOXIDE 18 MMOL/L (21-32); CHLORIDE 108 MMOL/L (98-107); CREATININE SERUM 0.62 MG/DL (0.60-1.30); GFR ESTIMATED > 60; GLUCOSE 118 MG/DL (70-105); POTASSIUM 3.6 MMOL/L (3.6-5.0); SODIUM 138 MMOL/L (135-145); TOTAL PROTEIN 6.2 GM/DL (6.4-8.2); URIC ACID 2.6 MG/DL (2.6-7.2)
[2019-03-07 16:05] VITALS: BP 133/65
[2019-03-07 16:35] VITALS: BP 141/87
--- NOTE | 2019-03-07 16:45 | Diagnostic Imaging Report ---
INDICATION: Leg swelling. COMPARISON: None. TECHNIQUE: Duplex, grayscale and color-flow imaging of the bilateral lower extremity venous system was performed. FINDINGS: The common femoral vein, superficial femoral vein, profunda femoris, and popliteal veins are normal. These vessels show normal compressibility, color flow, and Doppler augmentation. The deep calf veins, although not very well seen, demonstrate no distinct intraluminal thrombus. IMPRESSION: Negative venous Doppler of the bilateral lower extremities. Dictated by: Dictated on workstation # [id number]
[2019-03-07 16:50] VITALS: BP 145/72
--- NOTE | 2019-03-07 16:52 | NUR ---
DR. MARTINEZ CALLED AND NOTIFIED OF PT ARRIVAL. UPDATED ON PT C/O LOWER EXTREMITY SWELLING AND PAIN, ELEVATED BP. DR. MARTINEZ AWARE PT CALLED OFFICE AND HE ADVISED HER TO BE SEEN. NOTIFIED OF NEGATIVE DOPPLER, LAB RESULTS, VS, FHR, CTX PATTERN, OTHER ASSESSMENT FINDINGS. ORDERS TO REASSURE PT AND D/C TO HOME REC'D.
--- NOTE | 2019-03-07 17:25 | NUR ---
DISCHARGE INSTRUCTIONS EXPLAINED TO PT WITH COPY PROVIDED TO PT. PT VERBALIZES UNDERSTANDING OF TEACHING, DENIES QUESTIONS OR CONCERNS. PT AMBULATES SELF OFF UNIT TO PRIVATE VEHICLE. NO S/S OF DISTRESS NOTED.
--- NOTE | 2019-03-11 13:20 | Physician Query-Final Dx ---
NIKOLAI MARTIN 03/11/19 1320: Clinic Account Progress/Dx Physician Query: Please give diagnosis Date of Service Mar 07, 2019 at 15:12 PEPE MARTINEZ MD 03/12/19 2125: Clinic Account Progress/Dx DIAGNOSIS: Diagnosis CHARISMA NIKOLAI MARTIN Mar 11, 2019 13:20 PEPE MARTINEZ MD Mar 12, 2019 21:25
== END 2019-03-07 17:25 | disposition home or self-care (01) ==
LOC: WSo 15:12 → LDRP 15:13 → WSo 17:25
PROVIDERS: ATTEND Obstetrics & Gynecology
DX: O13.9 Gestational [pregnancy-induced] hypertension without significant proteinuria, unspecified trimester (principal)
CPT/HCPCS: 36415; 80053; 82570; 83615; 84156; 84550; 85025; 93970; 99213

== ENCOUNTER → 2019-03-18 | Outpatient (CLI) | payer MEDICAID ==
[2019-03-18 09:45] LABS: BASOPHILS # (AUTO) 0.1 10^3/uL (0.0-0.1); BASOPHILS % (AUTO) 1 % (0-10); EOSINOPHILS # (AUTO) 0.2 10^3/uL (0.0-0.3); EOSINOPHILS % (AUTO) 2 % (0-10); HEMATOCRIT 33 % (35-52); HEMOGLOBIN 10.8 G/DL (11.5-16.0); LYMPHOCYTES % (AUTO) 21 % (12-44); MEAN CORPUSCULAR HEMOGLOBIN 27 PG (25-34); MEAN CORPUSCULAR HGB CONC 33 G/DL (32-36); MEAN CORPUSCULAR VOLUME 82 FL (80-99); MEAN PLATELET VOLUME 11.5 FL (7.4-10.4); MONOCYTES # (AUTO) 0.7 X 10^3 (0.0-1.0); MONOCYTES % (AUTO) 7 % (0-12); NEUTROPHILS # (AUTO) 6.9 X 10^3 (1.8-7.8); NEUTROPHILS % (AUTO) 70 % (42-75); PLATELET COUNT 267 10^3/uL (130-400); RED CELL DISTRIBUTION WIDTH 14.1 % (10.0-14.5); WHITE BLOOD COUNT 9.9 10^3/uL (4.3-11.0)
[2019-03-18 09:59] LABS: ALANINE AMINOTRANSFERASE 18 U/L (0-55); ALKALINE PHOSPHATASE 94 U/L (40-136); BILIRUBIN,TOTAL 0.4 MG/DL (0.1-1.0); BUN/CREATININE RATIO 12; CARBON DIOXIDE 25 MMOL/L (21-32); CHLORIDE 104 MMOL/L (98-107); CREATININE SERUM 0.59 MG/DL (0.60-1.30); GFR ESTIMATED > 60; GLUCOSE 109 MG/DL (70-105); SODIUM 137 MMOL/L (135-145); TOTAL PROTEIN 6.1 GM/DL (6.4-8.2); URIC ACID 3.1 MG/DL (2.6-7.2)
== END ==
LOC: LABNPT 09:40
PROVIDERS: ATTEND Obstetrics & Gynecology
DX: O14.03 Mild to moderate pre-eclampsia, third trimester (principal)
CPT/HCPCS: 80053; 82570; 83615; 84156; 84550; 85025

== ENCOUNTER 2019-03-19 16:34 | Outpatient (CLI) | payer MEDICAID ==
[~2019-03-19] VITALS: Ht 172.7 cm; Wt 156.9 kg
--- NOTE | 2019-03-19 16:23 | NUR ---
JAMES HERNDON presented to unit via AMB from HOME, accompanied by SPOUSE, with c/o JEFFERS, QUESTIONABLE LEAKING OF FLUID, AND LOW BACK PAIN. JAMES HERNDON weighed, gowned, voided, and to bed. EFHM and TOCO applied, VS taken. JAMES HERNDON oriented to bed controls, call light, TV, heat, and A/C controls.
[2019-03-19 16:55] VITALS: BP 127/83
--- NOTE | 2019-03-19 17:13 | NUR ---
AMNIO SWAB NEGATIVE. SVE BY YASIR ARGUETA. CLOSED/ THICK/HIGH.
--- NOTE | 2019-03-19 17:21 | NUR ---
DR. MARTINEZ NOTIFIED OF PT'S ARRIVAL, BP, URINE DIPSTICK, CERVICAL EXAM, UTERINE IRRITABILITY, AND REACTIVE NST. ORDERS TO DISMISS.
--- NOTE | 2019-03-19 17:33 | NUR ---
EFM OFF. NO CTXS NOTED. UTERINE IRRITABILITY WITH FM. FHR 135 WITH ACCELS. MOD VARIABILITY. UP TO GET DRESSED.
[2019-03-19 17:45] VITALS: BP 127/83
--- NOTE | 2019-03-19 17:45 | NUR ---
Discharge instructions explained, signed and copy to patient. pt verbalized understanding of instructions and denied questions. Pt discharged to home. Ambulates self downstairs to private vehicle with belongings in hand and accompanied by s.o.
== END 2019-03-19 17:45 | disposition home or self-care (01) ==
LOC: LDRP 16:34 → WSo 16:34
PROVIDERS: ATTEND Obstetrics & Gynecology
DX: O99.89 Other specified diseases and conditions complicating pregnancy, childbirth and the puerperium (principal); R51 Headache; M54.5 Low back pain; Z3A.33 33 weeks gestation of pregnancy
CPT/HCPCS: 99214

== ENCOUNTER 2019-03-29 14:11 | Outpatient (CLI) | payer MEDICAID ==
[~2019-03-29] VITALS: Ht 172.7 cm; Wt 157.1 kg
--- NOTE | 2019-03-29 14:05 | NUR ---
JAMES HERNDON presented to unit via wheelchair from ED, accompanied by S.O., with c/o CRAMPING/PRESSURE. JAMES HERNDON weighed, gowned, voided, and to bed. EFHM and TOCO applied, VS taken. JAMES HERNDON oriented to bed controls, call light, TV, heat, and A/C controls.
[2019-03-29 14:19] VITALS: BP 127/69
--- NOTE | 2019-03-29 14:36 | NUR ---
AMNIO SWAB NEGATIVE. SVE BY RAMONE ARGUETA. CERVIX CLOSED/ THICK/ SOFT/ POSTERIOR.
[2019-03-29 14:46] VITALS: BP 123/72
--- NOTE | 2019-03-29 14:50 | NUR ---
UTERINE IRRITABILITY ONLU. ACTIVE FETUS WITH FHR 135, MOD VARIABILITY, +FM WITH + ACCELS.
--- NOTE | 2019-03-29 14:55 | NUR ---
DR. MARTINEZ NOTIFIED OF PT'S ARRIVAL, UTERINE IRRITABILITY, REACTIVE FETUS , URINE DIPSTICK, CERVICAL EXAM, VS, AND PT COMPLAINT. ORDERS TO DISCHARGE WITH PRECAUTIONS.
--- NOTE | 2019-03-29 15:00 | NUR ---
EFM OFF. UP TO GET DRESSED.
[2019-03-29 15:10] VITALS: BP 123/72
--- NOTE | 2019-03-29 15:10 | NUR ---
DISCHARGE INSTRUCTIONS REVIEWED WITH COPY TO PT. STATES UNDERSTANDING OF ALL INSTRUCTIONS AND NEED TO F/U SCHEDULED AND NEEDED. DISMISSED AMB FROM WS IN STABLE CONDITION ACC BY SPOUSE.
[2019-04-02] MEDS ORDERED: DOCU-143 PO (16:42)
[2019-04-02] MEDS ORDERED: OXYC-465 PO (16:42)
[2019-04-02] MEDS ORDERED: IBUP-1780 PO (16:42)
== END 2019-03-29 15:10 | disposition home or self-care (01) ==
LOC: WSo 14:11 → LDRP 14:11 → WSo 15:10
PROVIDERS: ATTEND Obstetrics & Gynecology
DX: O99.89 Other specified diseases and conditions complicating pregnancy, childbirth and the puerperium (principal); R10.2 Pelvic and perineal pain; Z3A.34 34 weeks gestation of pregnancy
CPT/HCPCS: 99213

== ENCOUNTER → 2019-03-31 | Outpatient (CLI) | payer MEDICAID ==
[~2019-03-31] MED LIST changes: +DOCU-143 PO
[2019-03-31 11:42] LABS: URINE CREATININE FOR RATIO 27 MG/DL (30-125); URINE PROTEIN FOR RATIO ONLY < 6 MG/DL (6-12)
== END ==
LOC: LABNPT 11:22
PROVIDERS: ATTEND Obstetrics & Gynecology
DX: O28.8 Other abnormal findings on antenatal screening of mother (principal)
CPT/HCPCS: 82570; 84156

== ENCOUNTER 2019-04-02 09:12 | Inpatient (IN) | payer MEDICAID | END 2019-04-04 11:00 | disposition home or self-care (01) | LOC: WSo 09:12 → LDRP 09:12 → WSo 11:07 → LDRP 11:07 → WS 18:50 ==

== ENCOUNTER → 2019-10-14 | Outpatient (CLI) | payer MEDICAID ==
[~2019-10-14] MED LIST changes: +RANI-613 PO; -RANI150T46 PO
--- NOTE | 2019-10-14 12:36 | Diagnostic Imaging Report ---
INDICATION: Pain. FINDINGS: No fracture, dislocation, or acute-appearing articular incongruity is demonstrated. IMPRESSION: Negative. Dictated by: Dictated on workstation # [id number]
== END ==
LOC: RAD FS 10:59
PROVIDERS: ATTEND Nurse Practitioner
DX: M25.512 Pain in left shoulder (principal)
CPT/HCPCS: 73030

== ENCOUNTER 2020-04-06 07:08 | Emergency (ER) | payer MEDICAID ==
[~2020-04-06] VITALS: Ht 172 cm; Wt 150.3 kg
--- OUTSIDE RECORDS SUMMARY | 2020-04-06 07:20 | XMS REPORT | Clinical Summary ---
Author Author [facility] Organization [facility] Address Unknown Phone Unavailable Care Team Providers Care Marketing Programs Manager Name Role Phone Batsheva Kilgore MD PCP Source Comments Some departments are not documenting in the electronic medical record. If you d o not see the information that you expected, contact Release of Information in [facility] Recurve Information Management department at [phone] for further assistan ce in locating additional records.[facility] Allergies No Known Allergies Medications End Date Status Medication Sig Dispensed Refills Start Date Active VIT Take 1 Tab by 0 CALC,IRON,FOLIC ( mouth. VITAMIN PO) Active acetaminophen (TYLENOL) Take 2 Tabs 60 Tab 3 325 mg tablet by mouth 7 every 4 hours as needed. Active HYDROcodone/acetaminophen Take 1-2 Tabs 40 Tab 0 (NORCO) 5/325 mg tablet by mouth 7 every 6 hours as needed for Pain Earliest Fill Date: 12/21/16 Active ofloxacin(+) (FLOXIN) 0.3 Instill 4 10 mL 0 % ophthalmic solution drops into 7 the right EAR twice a day for 5 days. 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 Last Filed Vital Signs Reading Time Taken Comments Vital Sign 126/88 12/26/2016 9:53 AM [employer]IRD [employer]AGE [employer] Blood Pressure 96 12/26/2016 9:53 AM [employer] Pulse 36.9 C (98.4 F) 12/21/2016 7:00 AM [employer] Temperature - - Respiratory Rate 99% 12/21/2016 7:00 AM [employer] Oxygen Saturation - - Inhaled Oxygen Concentration 137.7 kg (303 lb 9.6 oz) 12/26/2016 9:53 AM [employer]AGE AS[employer] Weight 172.7 cm (5' 8") 12/26/2016 9:53 AM [employer]AGE AS[employer] Height 46.16 12/26/2016 9:53 AM [employer]IRD [employer]AGE ASSEM[employer]ER Body Mass Index Plan of Treatment Health Maintenance Due Date Last Done Comments HIV SCREENING 2007 DTAP/TDAP VACCINES (1 - 2010 Tdap) HEPATITIS C SCREENING 2010 PHYSICAL (COMPREHENSIVE) 2010 EXAM CERVICAL CANCER SCREENING 2013 INFLUENZA VACCINE 08/26/2020 HPV VACCINES Aged Out No longer eligible based on patient's age to complete this topic Results Not on filefrom Last 3 Months Advance Directives Patient Personal Protection Specialist Explanation Type Date Recorded Advance 12/20/2016 5:35 AM Directive/DPOA Date Inactivated Comments Code Status Date Activated 12/21/2016 1:00 PM Full Code 12/20/2016 12:07 PM Provider has discussed Code Status Yes w/Patient or Family?
--- OUTSIDE RECORDS SUMMARY | 2020-04-06 07:20 | XMS REPORT | Encounter Summary ---
Author Author [facility] Organization [facility] Address Unknown Phone Unavailable Care Team Providers Care Music Theory Teacher Name Role Phone Batsheva Kilgore PCP Encounter Details Care Team Description Date Type Department Cora Alfaro MD [address] [place] [address] [phone] SHOULDER ARTHROSCOPY CHONDROPLASTY WITH MICROFRACTURE OF HUMERAL HEAD AND DEBRIDEMENT OF SLAP LESION [facility]31[facility] [address] [address] Social History Date Tobacco Use Types Packs/Day Years Used Quit: 09/29/2014 Former Smoker Cigarettes 0.05 1 Smokeless Tobacco: Never Used Drinks/Week oz/Week Comments Alcohol Use 3-4 PER MONTH Yes Sex Assigned at Date Recorded Not on file Industry Job Start Date Occupation Not on file Not on file Not on file Travel End Travel History Travel Start No recent travel history available. documented as of this encounter Last Filed Vital Signs Reading Time Taken Comments Vital Sign 120/68 03/31/2015 10:41 AM CDT Blood Pressure 94 03/31/2015 10:47 AM CDT Pulse 36.9 C (98.4 F) 03/31/2015 10:41 AM CDT Temperature 16 03/31/2015 10:47 AM CDT Respiratory Rate 98% 03/31/2015 10:47 AM CDT Oxygen Saturation - - Inhaled Oxygen Concentration 140.6 kg (310 lb) 03/29/2015 1:42 PM CDT Weight 172.7 cm (5' 7.99") 03/29/2015 1:42 PM CDT Height 47.15 03/29/2015 1:42 PM CDT Body Mass Index documented in this encounter H&P Notes * Cora Alfaro MD - 03/30/2015 4:35 PM CDT Name: MARICEL VIVAR Date of : 1990 Attending Physician: Cora Alfaro MD SURGICAL PROCEDURE: 03/31/2015 PROCEDURE: Left shoulder procedure. HISTORY OF PRESENT ILLNESS: Maricel is a 24-year-old extremely obese female who r eports an injury while working at [employer]. She describes her injury having oc curred on 04/03/2014. She was standing at the [employer], stepped back on a wet floor, and slipped on a piece of cardboard. She caught her left elbow on a counter injuring her upper extremity. She had had previous arthroscopic evaluation of the left shoulder back in 2005. She stated that she felt like she had dislocated her shoulder. She is now 10 months out from her injury, MRI scan was completed that was not ve ry remarkable. She still had symptoms of significant labral pain, possible art icular cartilage, or labral tear. She was being scheduled for arthroscopic eval uation. PAST SURGICAL HISTORY: Significant as stated for previous left shoulder arthros copy in 2005. She had a previous and a previous appendectomy. MEDICAL HISTORY: Unremarkable. SOCIAL HISTORY: She denies smoking, alcohol intake. She relates to [employer]. She is . She has 3 children. 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 PRESENT MEDICATIONS: None. MEDICAL ALLERGIES: Listed as none. Her clinical examination again shows evidence of a significantly overweight 5 fe et 8 inches, 300 pound female. She shows a supple cervical spine. No evidence of jugular venous distention. Oral exam was clear. Head and neck exam in [facility] were clear. Cardiac exam showed a regular rate and rhythm. Lungs were clear to auscultation . Her shoulder examination showed painful range of motion of her left shoulder. H er right shoulder range of motion was normal. Her right shoulder strength was n ormal. Her left shoulder painful range of motion was primarily with overhead activity i n abduction/external rotation and hyperabduction. She did not have localizing p ain to the acromioclavicular joint. Complained of pain laterally and anteriorly . She did have reasonably good strength, although she complained of pain agains t resisted loading of the shoulder. The primary pain was with overhead glenohum eral contact. Again, her MRI scan was reviewed, it was not significantly abnormal. Her exam d id not suggest rotator cuff pathology, but did suggest probable anterior inferio r chondral injury and/or labral tear. Due to the length of time since her injur y, we have elected to proceed with surgical procedure. She is scheduled for an arthroscopy of the left shoulder with probable debrideme nt or repair of the labrum as needed. Cora Alfaro MD [id number] CC: documented in this encounter Nursing Notes * Lisa Tai, RN - 03/31/2015 11:46 AM CDT 1020-Pt tolerating clear liquids and crackers. 1100-Pt ambulated into bathroom and voided without difficulties. Changed into cl othes with NEEDLEWORKER assistance. Shoulder immobilizer applied. 1120-Discharge instructions gone over with pt and pt's family and questions answ ered, understanding verbalized, copy given. 1122-Pt taken out to car in wheelchair by NEEDLEWORKER. documented in this encounter Miscellaneous Notes * Operative Note - Cora Alfaro MD - 03/31/2015 9:31 AM CDT Name: MARICEL VIVAR _[id number] Date of : 1990 Attending Physician: Cora Alfaro MD Date of Procedure: PREOPERATIVE DIAGNOSIS: Left shoulder superior labrum anterior and posterior te ar with possible articular cartilage lesion. POSTOPERATIVE DIAGNOSIS: Chronic partially healed type 2 superior labrum anteri or and posterior lesion with an advanced chondromalacia of the humeral head with a large 5-6 mm grade IV chondral lesion of the humeral head. PROCEDURE: Left shoulder arthroscopy with re-debridement of the type 2 superior labrum anterior and posterior lesion and chondroplasty including microfracture technique to the humeral head. SURGEON: Dr. Cora Alfaro. ANESTHESIA: General anesthetic utilizing LMA. COMPLICATIONS: None. INDICATION FOR THE PROCEDURE: Maricel is a 24-year-old female who reported an inj ury when she slipped and caught her left elbow on a counter hyperabducting her s houlder. She has had persistent pain since the injury which was 1 year ago. Gabby martínez had an MRI scan that was unremarkable. She did have a previous arthroscopy co mpleted on her shoulder approximately 6 or 8 years ago. We were unable to deter mine exactly the procedure done. Due to the chronicity of her pain, we elected to proceed with re-arthroscopy. Patient was brought in the operating room, given a general anesthetic, continued with LMA. She was transferred into a right lateral decubitus position. Her le ft arm suspended in 45 degrees of abduction and neutral flexion. She was preppe d and draped in a sterile manner. The shoulder was then entered through a standard posterior portal after a standa rd timeout was completed. A standard posterior portal was utilized, and diagnostic arthroscopy noted signi ficant wear of the humeral head, the central 50% of the head was worn with grade II wear and a large full-thickness articular lesion was present anteriorly and centrally on the humeral head that was approximately 6 mm in diameter. It was o f a chronic nature, relatively well-healed. This certainly could have been from an injury a year ago, but there were no loose fragments appreciated in the join t. She did have evidence of a previously repaired SLAP lesion, a stitch was still p resent. The stitch was removed. I could not elevate the labrum from the superi or glenoid rim although there was a portion of the SLAP lesion posterior to that that was not well healed. I used a 3.5 round bur to decorticate the glenoid rim behind the area that was fixed previously. Stimulate further healing. At this point, we then did a chondroplasty of the humeral head and used [place] to do a microfracture of the lesion stimulating good bleeding tissue to a ttempt to generate further healing, although the lesion was quite large. Allogr aft or partial humeral arthroplasty likely necessary. The glenoid itself had some moderate wear, no advanced changes. The rotator cuff internally was quite clean. Following the procedure, I entered the subacromial space. The rotator cuff was pristine, acromion pristine. No impingement changes noted. We then irrigated out the space, closed the incision sites with 3-0 nylon suture and injected the shoulder with 0.5% Marcaine and Duramorph. She tolerated the procedure well, was taken to the recovery room with a Polar Care in place and a sling in place. 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.01] * Superior glenoid labrum lesion [840.7] Procedure(s): SHOULDER ARTHROSCOPY WITH SUPERIOR L CHONDROPLASTY WITH MICROFRACTURE OF CARLOS L HEAD AND DEBRIDEMENT OF SLAP LESION Surgeon(s) and Role: * Cora Alfaro MD - Primary Anesthesia Type: General Staff: Mold Tooler: Jan Fuller RN Relief Mold Tooler: Ayala Hamilton RN Scrub Person: Kendra Jean-Baptiste Anesthesiologist: Marlin Pastrana MD Diesel Trailer Mechanic: Gerard Michaud MD Findings: Complications: Condition: Estimated Blood Loss: less than 50 mL Specimens: * No orders in the log * Drains: Cora Alfaro Date: 03/31/2015 Time: 9:22 AM documented in this encounter Plan of Treatment Not on filedocumented as of this encounter Procedures Comments Procedure Name Priority Date/Time Associated Diag nosis LAB SUMMARY 04/01/2015 2:25 AM CDT US ABDOMEN COMPLETE 03/31/2015 10:07 AM CDT ARTHROSCOPY, SHOULDER, 03/31/2015 Articular cart ilage WITH GLENOID LABRUM 8:43 AM CDT disorder, shoulde r region REPAIR Superior glenoid labrum lesion Special Needs Delavan Terlip with [facility] notified and coming in for case/ 03/29/15 URINE TEST Routine 03/31/2015 7:25 AM CDT documented in this encounter Results * LAB SUMMARY (04/01/2015 2:25 AM CDT) Narrative Performed At This result has an attachment that is n ot available. Ordered by an unspecified provider. * US ABDOMEN COMPLETE (03/31/2015 10:07 AM CDT) Narrative Performed At This result has an attachment that is n ot available. Ordered by an unspecified provider. * Urine Test (03/31/2015 7:25 AM CDT) UCG Urine Negative Negative [facility] Specimen Urine Performing Organization Address [facility] Number [address] [address] LABORATORIES documented in this encounter Visit Diagnoses Diagnosis Articular cartilage disorder, shoulder region Superior glenoid labrum lesion documented in this encounter Administered Medications Action Date Dose Rate Site Medication Order MAR Action 03/31/2015 9:04 AM CDT 3,000 mL EPINEPHrine (ADRENALIN) 1 mL in lactated Given ringers irrigation 3,000 mL OR irrigation As needed, Starting Sun03/31/15 at 0903, Intra-op 3,000 mL Given 03/31/2015 9:03 AM CDT 03/31/2015 9:53 AM CDT 30 mg ketorolac (TORADOL) injection 30 mg Given 30 mg, Intravenous, Once, Sun03/31/15 at 0945, For 1 dose, PACU (only), Before discharge., 03/31/2015 9:04 AM CDT 20 mL Other morphine pf (DURAMORPH) 1 mg/mL 4 mg and Given bupicavaine (MARCAINE) 0.5% 16 mL As needed, Starting Sun03/31/15 at 0904, Intra-op 03/31/2015 10:22 AM CDT 2 tablets oxyCODONE-acetaminophen (PERCOCET) 5-325 Given mg 2 tablet 2 tablet, Oral, Every 4 hours PRN, pain , Starting Sun03/31/15 at 1017, PACU (only), Do not exceed 4 GM/DAY of acetaminophen. If 65 or older do not exceed 3 GM/DAY. If chronic alcoholic d o not exceed 2 GM/DAY., oxyCODONE-acetaminophen (PERCOCET) 5-32 5 mg Starting 03/31/15 at 1015, For 1 dose , Created by cabinet override, documented in this encounter
--- OUTSIDE RECORDS SUMMARY | 2020-04-06 07:20 | XMS REPORT | Clinical Summary ---
Author Author [facility] Organization [facility] Address Unknown Phone Unavailable Care Team Providers Care Control Clerk Head Name Role Phone Batsheva Kilgore PCP Allergies No Known Allergies Medications No known medications Active Problems Problem Noted Date Superior glenoid labrum lesion 03/30/2015 Social History Date Tobacco Use Types Packs/Day [...] 03/29/2015 1:42 PM CDT Body Mass Index Plan of Treatment Not on file Results Not on filefrom Last 3 Months
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
--- OUTSIDE RECORDS SUMMARY | 2020-04-06 07:21 | XMS REPORT | Encounter Summary ---
Author Author [facility] Organization [facility] Address Unknown Phone Unavailable Care Team Providers Care Can Patcher Name Role Phone Batsheva Kilgore PCP Encounter Details Care Team Description Date Type Department Marlin Pastrana MD [address] [place] [address] [phone] Lindsay Parks DO [address] [place] [address] [phone] 03/31/2015 [facility] [address] [place] [address] Anesthesia Record Responsible Anesthesiologist Anesthesia Start Time Anesthesi a Stop Time Procedure Name Marlin Pastrana MD 03/31/15 0843 03/31/15 0939 SHOULDER ARTHROSCOPY CHONDROPLASTY WITH MICROFRACTURE OF HUMERAL HEAD AND DEBRIDEMENT OF SLAP LESION (Left ) Date Time Event Comment 815 Anesthesia 2015 Initial Contact 0823 Block start 0830 Block stop 0843 AN Equip Check 0843 In room 0843 An Start 0843 An Start Data 0843 Pt eval immediately prior to anesthesia 0843 Preoxygenated Prior to Induction 0846 An Induction 0849 An LMA 0849 Cuff to good seal 0849 Anesthesia Ready 0850 Spontaneous respirations 0900 Procedure start - Primary Case 0907 0920 Procedure stop - Primary case 0924 FiO2 to 100% Prior to Suctioning 0924 LMA Removed 0930 Oxygen per nasal cannula 0931 an stop data 0931 Out of Room 0939 Handoff I completed my SBAR handoff to the receiving nurse in the PACU. 0939 An Stop Meds Name Total lidocaine 2% (PF) 60 mg propofol 10mg/mL 200 mg ondansetron 2mg/mL 4 mg ceFAZolin (ANCEF) injection 3 g 3 g lactated ringers infusion 700 mL * Name O2 N2O Air EtSEVO EtN2O * No blood administrations on file. Removal Type Details Placement 03/31/15 1115 by Lisa Tai RN Peripheral Date: 03/31/15; Time: 729; Size 03/31 0730 by Ayala Hendrix IV (gauge): 20 G; Orientation: Left; Dominic varela RN Location: Wrist; Site Prep: Chlorhexidine; Local Anesthetic: Intradermal; Insertion Attempts: 1; Removal Date: 03/31/15; Removal Time: 111403/31/15923 by Gerard Michaud MD Non-Surgic Date: 03/31/15; Time: 848; Placed By: 03/31/15 0849 by Gerard roca Airway Resident; Site: Oral; Device: LMA; Size : MD Jaswant 4; Attempts: 1; Placement Verified By: Capnometry, Ausculation; Removal Date: 03/31/15; Removal Time: 92306/15/19 0836 by User [employer] (Retired 03/31/15; 0905; Shoulder; Left; 9 03/31/15 0905 by Jan Cage 12/18/18; (This LDA has been removed & completed OZZIE Fuller search via automated utility); 083 6 (This LDA "wound" if has been removed & complete d via placing automated utility) new) Wound - Incision Assessment documented in this encounter Social History Date Tobacco Use Types Packs/Day [...] history available. documented as of this encounter Procedure Notes * Marlin Pastrana MD - 04/07/2015 11:16 AM CDT Associated Order(s): ANESTHESIA PERIPHERAL BLOCK Peripheral Block Patient location during procedure: pre-op Start time: 03/31/2015 8:23 AM End time: 03/31/2015 8:30 AM Reason for block: per surgeon's verified order for post-op pain management Staffing Zeina Performed by: anesthesiologist Preanesthetic Checklist Completed: patient identified, IV checked, site marked, risks and benefits discu ssed, surgical consent, monitors and equipment checked, pre-op evaluation and ti meout performed Peripheral Block Diagnosis: Left shoulder pain Referring Physician: Kelly Alfaro Patient position: sitting Prep: ChloraPrep Patient monitoring: heart rate, community worker, continuous pulse ox and NIBP Block type: interscalene Laterality: left Injection technique: single-shot Procedures: ultrasound guided, copy of ultrasound film in chart. Local infiltration: ropivicaine Infiltration strength: 0.5 % Dose: 30 mL Needle Needle type: short-bevel Needle gauge: 22 G Needle length: 2 in Needle localization: ultrasound guidance Assessment Injection assessment: negative aspiration for heme and local visualized surround ing nerve on ultrasound Paresthesia pain: none Heart rate change: no Slow fractionated injection with intermittent aspirations: yes Additional Notes Patient tolerated procedure well. No gross motor or sensory deficits of left arm prior to nerve block performed. documented in this encounter Miscellaneous Notes * Addendum Note - Marlin Pastrana MD - 04/07/2015 11:20 AM CDT Addendum created 04/07/15 1120 by Marlin Pastrana MD Modules edited: Anesthesia Blocks and Procedures, Clinical Notes Clinical Notes: File: [id number] * Anesthesia Postprocedure Evaluation - Bret New MD - 03/31/2015 10:45 AM CDT Patient: Maricel Ruma Cb Procedure(s): SHOULDER ARTHROSCOPY CHONDROPLASTY WITH MICROFRACTURE OF HUMERAL HEAD AND DEBRI FARZAD OF SLAP LESION Final Anesthesia Type Performed: general *Block Type (if peripheral regional or epidural used): No value filed. Patient location: PACU Last Vitals BP 120/68 | Pulse 80 | Temp(Src) 36.9 C (98.4 F) (Temporal) | Resp 16 | Ht 1 .727 m (5' 7.99") | Wt 140.615 kg (310 lb) | BMI 47.15 kg/m2 | SpO2 99% | LMP (Exact Date) | ? No Level of consciousness: awake, alert and oriented Post-anesthesia pain: adequate analgesia Airway patency: patent Respiratory: unassisted Cardiovascular: stable and blood pressure at baseline Hydration: adequate PostOp Nausea/Vomiting: controlled Difficult Airway: no Anesthetic complications: no Discharge from anesthesia care: Appropriate for discharge from anesthesia care, no apparent anesthesia related complications * Anesthesia Preprocedure Evaluation - Marlin Pastrana MD - 03/31/2015 9:03 AM CDT Anesthesia Evaluation Patient summary reviewed and Nursing notes reviewed Airway Mallampati: II TM distance: >3 FB Neck ROM: full Dental - normal exam Pulmonary - normal exam breath sounds clear to auscultation (+) asthma Well Controlled , ROS comment: Mild exercise induced asthma, infrequently uses inhaler Cardiovasc ular - negative ROS and normal exam Rhythm: regular Rate: normal Neuro/Psych Comments: S/p work injury of left shoulder GI/Hepatic/Renal - negative ROS Endo/Other - negative ROS Abdominal (+) obese, Obstetrics HEENT Musculoskeletal Anesthesia Plan ASA 2 Type: general () Plan to include: IV induction, spontaneous ventilation and LMA Patient was NOT taking beta blockers as a home medication. Beta block will NOT be maintained perioperatively. Anesthetic plan and risks discussed with patient. Plan discussed with resident. Post-operative analgesia: routine analgesia and antiemetics and nerve block for post-op analgesia at surgeon's request Recovery plan: PACU PONV risk level: low Notes Risks and benefit of general and regional anesthesia discussed with patient. Pat ient consents to both regional and general anesthesia Left arm motor strength 5/5 and sensory grossly intact for left arm documented in this encounter Plan of Treatment Not on filedocumented as of this encounter Procedures Comments Procedure Name Priority Date/Time Associated Diag nosis ANESTHESIA PERIPHERAL Routine 04/07/2015 BLOCK 11:20 AM CDT documented in this encounter Results * ANESTHESIA PERIPHERAL BLOCK (04/07/2015 11:20 AM CDT) Narrative Performed At Marlin Pastrana MD 5 11:20 AM Peripheral Block Patient location during procedure: pre- op Start time: 03/31/2015 8:23 AM End time: 03/31/2015 8:30 AM Reason for block: per surgeon's verifie d order for post-op pain management Staffing Zeina Performed by: anesthesiologist Preanesthetic Checklist Completed: patient identified, IV check ed, site marked, risks and benefits discussed, surgical consent, m onitors and equipment checked, pre-op evaluation and timeout performed Peripheral Block Diagnosis: Left shoulder pain Referring Physician: Kelly Alfaro Patient position: sitting Prep: ChloraPrep Patient monitoring: heart rate, community worker, continuous pulse ox and NIBP Block type: interscalene Laterality: left Injection technique: single-shot Procedures: ultrasound guided, copy of ultrasound film in chart. Local infiltration: ropivicaine Infiltration strength: 0.5 % Dose: 30 mL Needle Needle type: short-bevel Needle gauge: 22 G Needle length: 2 in Needle localization: ultrasound guidanc e Assessment Injection assessment: negative aspirati on for heme and local visualized surrounding nerve on ultraso und Paresthesia pain: none Heart rate change: no Slow fractionated injection with interm ittent aspirations: yes Additional Notes Patient tolerated procedure well. No gr oss motor or sensory deficits of left arm prior to nerve blo ck performed. documented in this encounter Visit Diagnoses Not on filedocumented in this encounter Administered Medications Action Date Dose Rate Site Medication Order MAR Action 03/31/2015 8:55 AM CDT 3 g ceFAZolin (ANCEF) injection 3 g Given 3 g, Intravenous, 60 min pre-op, Starting 03/31/15 at 0729, For 1 dose , Pre-op, If giving IV push, reconstitut e each vial with 10 ml sterile water and give over 2-3 minutes, 03/31/2015 8:43 AM CDT lactated ringers infusion New Bag 50 mL/hr, Intravenous, Continuous, Starting Sun03/31/15 at 0745, Pre-op 03/31/2015 8:46 AM CDT 60 mg lidocaine (pf) (XYLOCAINE-MPF) 20 mg/mL Given (2 %) injection As needed, Starting Sun03/31/15 at 0846, Anesthesia Intra-op 03/31/2015 9:18 AM CDT 4 mg ondansetron (ZOFRAN) 4 mg/2 mL injection Given As needed, nausea, vomiting, Starting Sun03/31/15 at 0918, Anesthesia Intra-op 03/31/2015 8:46 AM CDT 200 mg propofol (DIPRIVAN) injection Given As needed, Starting Sun03/31/15 at 0846, Anesthesia Intra-op documented in this encounter
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
--- OUTSIDE RECORDS SUMMARY | 2020-04-06 07:21 | XMS REPORT | Encounter Summary ---
Author Author [facility] Organization [facility] Address Unknown Phone Unavailable Care Team Providers Care Forensic Materials Engineer Name Role Phone Kilgore Batsheva PCP Reason for Referral * (Routine) Referred By Contact Referred To Contact Status Reason Specialty Diagnoses / Procedures Cora Alfaro MD [address] [address] Closed Procedures Shoulder sling * (Routine) Referred By Contact Referred To Contact Status Reason Specialty Diagnoses / Procedures Cora Alfaro MD [address] [address] Closed Procedures Extremity Care * (Routine) Referred By Contact Referred To Contact Status Reason Specialty Diagnoses / Procedures Cora Alfaro MD [address] [address] Closed Procedures Polar Care * (Routine) Referred By Contact Referred To Contact Status Reason Specialty Diagnoses / Procedures Cora Alfaro MD [address] [address] Closed Procedures Patient may shower * (Routine) Referred By Contact Referred To Contact Status Reason Specialty Diagnoses / Procedures Cora Alfaro MD [address] [address] Closed Procedures Remove dressing * (Routine) Referred By Contact Referred To Contact Status Reason Specialty Diagnoses / Procedures Cora Alfaro MD [address] [address] Closed Procedures Discharge follow-up with surgeon Encounter Details Care Team Description Date Type Department Cora Alfaro MD [address] [facility] [place] [address] [phone] Articular cartilage disorder, shoulder r egion (Primary Dx); Superior glenoid labrum [facility] [address] [place] [address] Social History Date Tobacco Use Types Packs/Day [...] MD - 03/30/2015 4:35 PM CDT Name: JAMES VIVAR Date of : 1990 Attending Physician: Cora Alfaro MD SURGICAL PROCEDURE: 03/31/2015 PROCEDURE: Left shoulder procedure. HISTORY OF PRESENT ILLNESS: James is a 24-year-old extremely obese female who r eports an injury while working at [employer]. She describes her injury having oc curred [...] denies smoking, alcohol intake. She relates to [employer]. She is . She has 3 children. 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 PRESENT MEDICATIONS: None. MEDICAL ALLERGIES: Listed as none. Her clinical examination again shows evidence of a significantly overweight 5 fe et 8 inches, 300 pound female. She shows a supple cervical spine. No evidence of jugular venous distention. Oral exam was clear. [facility] were clear. Cardiac exam showed a regular [...] the labrum as needed. Cora Alfaro MD [id number] CC: documented in this encounter Nursing Notes * Lisa Tai, RN - 03/31/2015 11:46 AM CDT 1020-Pt tolerating clear liquids and crackers. 1100-Pt ambulated into bathroom and voided without difficulties. Changed into cl othes with [employer] assistance. Shoulder immobilizer applied. 1120-Discharge instructions gone over with pt and pt's family and questions answ ered, understanding verbalized, copy given. 1122-Pt taken out to car in wheelchair by [employer]. documented in this encounter Miscellaneous Notes * Operative Note - Cora Alfaro MD - 03/31/2015 9:31 AM CDT Name: JAMES VIVAR _[id number] Date of : 1990 Attending [...] LMA. COMPLICATIONS: None. INDICATION FOR THE PROCEDURE: James is a 24-year-old female who reported an [...] chondroplasty of the humeral head and used Davy Picks to do a microfracture of the [...] a sling in place. 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] Procedure(s): SHOULDER ARTHROSCOPY WITH SUPERIOR L CHONDROPLASTY WITH MICROFRACTURE OF CARLOS L HEAD AND DEBRIDEMENT OF SLAP LESION Surgeon(s) and Role: * Cora Alfaro MD - Primary Anesthesia Type: General Staff: Liquid Hydrogen Plant Operator: Jan Fuller RN Relief Liquid Hydrogen Plant Operator: Ayala Hamilton RN Scrub Person: Kendra Jean-Baptiste Anesthesiologist: Marlin Pastrana MD Hand Stone Polisher: Gerard Michaud MD Findings: Complications: Condition: Estimated [...] REPAIR Superior glenoid labrum lesion Special Needs [place] with Arthrex notified and coming in [...] 7:25 AM CDT) UCG Urine Negative Negative [facility] Specimen Urine Performing Organization Address City/State/Zipcode Ph one Number [address] [address] LABORATORIES documented in this encounter Visit Diagnoses Diagnosis Articular cartilage disorder, shoulder region Superior glenoid labrum lesion documented in this encounter Administered Medications Action Date Dose Rate Site Medication Order MAR Action 03/31/2015 9:53 AM CDT 30 mg ketorolac (TORADOL) injection 30 mg Given 30 mg, Intravenous, Once, Sun03/31/15 at 0945, For 1 dose, PACU (only), Before discharge., 03/31/2015 10:22 AM CDT 2 tablets oxyCODONE-acetaminophen (PERCOCET) 5-325 Given mg 2 tablet 2 tablet, Oral, Every 4 hours PRN, pain , Starting Sun03/31/15 at 1017, PACU (only), Do not exceed 4 GM/DAY of acetaminophen. If 65 or older do not exceed 3 GM/DAY. If chronic alcoholic d o not exceed 2 GM/DAY., oxyCODONE-acetaminophen (PERCOCET) 5-32 5 mg Starting Sun03/31/15 at 1015, For 1 dose , Created by cabinet override, documented in this encounter
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
--- OUTSIDE RECORDS SUMMARY | 2020-04-06 07:24 | XMS REPORT | Continuity of Care Document ---
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 (moles/volume) 7 mmol/L 5-14 Serum or plasma urea nitrogen measurement (mass/volume ) 4 mg/dL 7-18 Serum or plasma creatinine measurement (mass/volume) 0.51 mg/dL 0.60-1.30 Serum or plasma urea nitrogen/creatinine mass ratio 8 NRG Serum or plasma creatinine measurement w ith calculation of estimated glomerular filtration rate > NRG Serum or plasma glucose measurement (mass/volume) 88 mg/dL 70-105 Serum or plasma calcium measurement (mass/volume) 8.8 mg/dL 8.5-10.1 Serum or plasma total bilirubin measurement (mass/volu me) 0.5 mg/dL 0.1-1.0 Serum or plasma alkaline phosphatase dain surement (enzymatic activity/volume) 125 U/L 40-136 Serum or plasma aspartate aminotransfera se measurement (enzymatic activity/volume) 14 U/L 5-34 Serum or plasma alanine aminotransferase measurement (enzymatic activity/volume) 9 U/L 0-55 Serum or plasma protein measurement (mass/volume) 5.7 g/dL 6.4-8.2 Serum or plasma albumin measurement (mass/volume) 2.8 g/dL 3.2-4.5 Serum or plasma uric acid measurement (m ass/volume) - 10/24/16 12:53 Serum or plasma uric acid measurement (mass/volume) 2.7 mg/dL 2.6-7.2 Lactate dehydrogenase 1 [enzymatic activ ity/volume] in serum or plasma - 10/24/16 12:53 Lactate dehydrogenase 1 [enzymatic activ ity/volume] in serum or plasma 155 U/L 125-220 Automated blood complete blood count (he mogram) panel - 10/25/16 13:35 Blood leukocytes automated count (number/volume) 10.8 10*3/uL 4.3-11.0 Blood erythrocytes automated count (number/volume) 4.25 10*6/uL 4.35-5.85 Venous blood hemoglobin measurement (mass/volume) 10.8 g/dL 11.5-16.0 Blood hematocrit (volume fraction) 33 % 35-52 Automated erythrocyte mean corpuscular volume 77 [ foz_us] 80-99 Automated erythrocyte mean corpuscular h emoglobin (mass per erythrocyte) 25 pg 25-34 Automated erythrocyte mean corpuscular h emoglobin concentration measurement (mass/volume) 33 g/dL 32-36 Automated erythrocyte distribution width ratio 14. 6 % 10.0- 14.5 Automated blood platelet count (count/volume) 259 10*3/uL 130-400 Automated blood platelet mean volume measurement 11.0 [foz_us] 7.4-10.4 [id number] - 10/25/16 13:35 [id number] SPECIMEN AVAILABLE NRG Complete urinalysis with reflex to cultu re - 10/25/16 13:35 Urine color determination YELLOW NRG Urine clarity determination CLEAR NR G Urine pH measurement by test strip 6 5-9 Specific gravity of urine by test strip 1.020 1.016-1.022 Urine protein assay by test strip, semi-quantitative 2+ NEGATIVE Urine glucose detection by automated test strip 2+ NEGATIVE Erythrocytes detection in urine sediment by light micr oscopy NEGATIVE NEGATIVE Urine ketones detection by automated test strip 1+ NEGATIVE Urine nitrite detection by test strip NEGATIVE NEGATIVE Urine total bilirubin detection by test strip 1+ NEGATIVE Urine urobilinogen measurement by automated test strip (mass/volume) 4 mg/dL NORMAL Urine leukocyte esterase detection by dipstick 3+ NEGATIVE Automated urine sediment erythrocyte cou nt by microscopy (number/high power field) [HPF] NRG Automated urine sediment leukocyte count by microscopy (number/high power field) [HPF] NRG Bacteria detection in urine sediment by light microsco py MODERATE NRG Squamous epithelial cells detection in u rine sediment by light microscopy 25-50 NRG Crystals detection in urine sediment by light microsco py NONE NRG Casts detection in urine sediment [...] 5-14 Serum or plasma urea nitrogen measurement (mass/volume ) 5 mg/dL 7-18 Serum or plasma creatinine measurement (mass/volume) 0.56 mg/dL 0.60-1.30 Serum or plasma urea nitrogen/creatinine mass ratio 9 NRG Serum or plasma creatinine measurement w ith calculation of estimated glomerular filtration rate > NRG Serum or plasma glucose measurement (mass/volume) 96 mg/dL 70-105 Serum or plasma calcium measurement (mass/volume) 9.1 mg/dL 8.5-10.1 Serum or plasma total bilirubin measurement (mass/volu me) 0.5 mg/dL 0.1-1.0 Serum or plasma alkaline phosphatase dain surement (enzymatic activity/volume) 139 U/L 40-136 Serum or plasma aspartate aminotransfera se measurement (enzymatic activity/volume) 15 U/L 5-34 Serum or plasma alanine aminotransferase measurement (enzymatic activity/volume) 10 U/L 0-55 Serum or plasma protein measurement (mass/volume) 6.2 g/dL 6.4-8.2 Serum or plasma albumin measurement (mass/volume) 3.0 g/dL 3.2-4.5 Serum or plasma uric acid measurement (m ass/volume) - 10/25/16 13:35 Serum or plasma uric acid measurement (mass/volume) 3.0 mg/dL 2.6-7.2 Lactate dehydrogenase 1 [enzymatic activ ity/volume] in serum or plasma - 10/25/16 13:35 Lactate dehydrogenase 1 [enzymatic activ ity/volume] in serum or plasma 153 U/L 125-220 Urine protein/creatinine mass ratio - 13:35 Urine protein measurement (mass/volume) 47 mg/dL 6-12 Urine creatinine measurement (mass/volume) 179 mg/ dL 30-125 Urine protein/creatinine mass ratio 0.26 NRG Bacterial urine culture - 10/25/16 13:35 URINE CULTURE RESULTS <10,000/ML NRG Streptococcus agalactiae detection by or ganism specific culture - 10/25/16 17:50 Complete blood count (CBC) with automate d white blood cell (WBC) differential - 10/26/16 08:00 Blood leukocytes automated count (number/volume) 11.1 10*3/uL 4.3-11.0 Blood erythrocytes automated count (number/volume) 4.06 10*6/uL 4.35-5.85 Venous blood hemoglobin measurement (mass/volume) 10.2 g/dL 11.5-16.0 Blood hematocrit (volume fraction) 32 % 35-52 Automated erythrocyte mean corpuscular volume 78 [ foz_us] 80-99 Automated erythrocyte mean corpuscular h emoglobin (mass per erythrocyte) 25 pg 25-34 Automated erythrocyte mean corpuscular h emoglobin concentration measurement (mass/volume) 32 g/dL 32-36 Automated erythrocyte distribution width ratio 14. 5 % 10.0- 14.5 Automated blood platelet count (count/volume) 224 10*3/uL [...] 10*3 1.0-4.0 Blood monocytes automated count (number/volume) 0. 5 10*3 0.0-1.0 Automated eosinophil count 0.1 10*3/uL 0 .0-0.3 Automated blood basophil count (count/volume) 0.0 10*3/uL 0.0-0.1 Urine protein/creatinine mass ratio - 08:00 Urine protein measurement (mass/volume) 14 mg/dL 6-12 Urine creatinine measurement (mass/volume) 50 mg/d L 30-125 Urine protein/creatinine mass ratio 0.28 NRG Comprehensive metabolic panel - 10/26/16 08:00 Serum or plasma sodium measurement (moles/volume) 137 mmol/L 135-145 Serum or plasma potassium measurement (moles/volume) 3.8 mmol/L 3.6-5.0 Serum or plasma chloride measurement (moles/volume) 107 mmol/L 98-107 Carbon dioxide 19 mmol/L 21-32 Serum or plasma anion gap determination (moles/volume) 11 mmol/L 5-14 Serum or plasma urea nitrogen measurement (mass/volume ) 4 mg/dL 7-18 Serum or plasma creatinine measurement (mass/volume) 0.59 mg/dL 0.60-1.30 Serum or plasma urea nitrogen/creatinine mass ratio 7 NRG Serum or plasma creatinine measurement w ith calculation of estimated glomerular filtration rate > NRG Serum or plasma glucose measurement (mass/volume) 127 mg/dL 70-105 Serum or plasma calcium measurement (mass/volume) 9.1 mg/dL 8.5-10.1 Serum or plasma total bilirubin measurement (mass/volu me) 0.4 mg/dL 0.1-1.0 Serum or plasma alkaline phosphatase dain surement (enzymatic activity/volume) 138 U/L 40-136 Serum or plasma aspartate aminotransfera se measurement (enzymatic activity/volume) 17 U/L 5-34 Serum or plasma alanine aminotransferase measurement (enzymatic activity/volume) 8 U/L 0-55 Serum or plasma protein measurement (mass/volume) 6.3 g/dL 6.4-8.2 Serum or plasma albumin measurement (mass/volume) 2.9 g/dL 3.2-4.5 Lactate dehydrogenase 1 [enzymatic activ ity/volume] in serum or plasma - 10/26/16 08:00 Lactate dehydrogenase 1 [enzymatic activ ity/volume] in serum or plasma 147 U/L 125-220 Urine protein/creatinine mass ratio - 08:51 Urine protein measurement (mass/volume) 60 mg/dL 6-12 Urine creatinine measurement (mass/volume) 160 mg/ dL 30-125 Urine protein/creatinine mass ratio 0.38 NRG Complete blood count (CBC) with automate d white blood cell (WBC) differential - 10/27/16 13:44 Blood leukocytes automated count (number/volume) 12.8 10*3/uL 4.3-11.0 Blood erythrocytes automated count (number/volume) 3.85 10*6/uL 4.35-5.85 Venous blood hemoglobin measurement (mass/volume) 9.7 g/dL 11.5-16.0 Blood hematocrit (volume fraction) 30 % 35-52 Automated erythrocyte mean corpuscular volume 78 [ foz_us] 80-99 Automated erythrocyte mean corpuscular h emoglobin (mass per erythrocyte) 25 pg 25-34 Automated erythrocyte mean corpuscular h emoglobin concentration measurement (mass/volume) 32 g/dL 32-36 Automated erythrocyte distribution width ratio 14. 5 % 10.0- 14.5 Automated blood platelet count (count/volume) 260 10*3/uL [...] 10*3 1.0-4.0 Blood monocytes automated count (number/volume) 1. 4 10*3 0.0-1.0 Automated eosinophil count 0.1 10*3/uL 0 .0-0.3 Automated blood basophil count (count/volume) 0.0 10*3/uL 0.0-0.1 Comprehensive metabolic panel - 10/27/16 13:44 Serum or plasma sodium measurement (moles/volume) 136 mmol/L 135-145 Serum or plasma potassium measurement (moles/volume) 3.3 mmol/L 3.6-5.0 Serum or plasma chloride measurement (moles/volume) 107 mmol/L 98-107 Carbon dioxide 20 mmol/L 21-32 Serum or plasma anion gap determination (moles/volume) 9 mmol/L 5-14 Serum or plasma urea nitrogen measurement (mass/volume ) 7 mg/dL 7-18 Serum or plasma creatinine measurement (mass/volume) 0.54 mg/dL 0.60-1.30 Serum or plasma urea nitrogen/creatinine mass ratio 13 NRG Serum or plasma creatinine measurement w ith calculation of estimated glomerular filtration rate > NRG Serum or plasma glucose measurement (mass/volume) 100 mg/dL 70-105 Serum or plasma calcium measurement (mass/volume) 8.6 mg/dL 8.5-10.1 Serum or plasma total bilirubin measurement (mass/volu me) 0.4 mg/dL 0.1-1.0 Serum or plasma alkaline phosphatase dain surement (enzymatic activity/volume) 119 U/L 40-136 Serum or plasma aspartate aminotransfera se measurement (enzymatic activity/volume) 17 U/L 5-34 Serum or plasma alanine aminotransferase measurement (enzymatic activity/volume) 12 U/L 0-55 Serum or plasma protein measurement (mass/volume) 6.1 g/dL 6.4-8.2 Serum or plasma albumin measurement (mass/volume) 3.0 g/dL 3.2-4.5 Lactate dehydrogenase 1 [enzymatic activ ity/volume] in serum or plasma - 10/27/16 13:44 Lactate dehydrogenase 1 [enzymatic activ ity/volume] in serum or plasma 146 U/L 125-220 Blood CBC with ordered manual differenti al panel - 10/28/16 19:35 Blood leukocytes automated count (number/volume) 10.4 10*3/uL 4.3-11.0 Blood erythrocytes automated count (number/volume) 3.82 10*6/uL 4.35-5.85 Venous blood hemoglobin measurement (mass/volume) 9.6 g/dL 11.5-16.0 Blood hematocrit (volume fraction) 30 % 35-52 Automated erythrocyte mean corpuscular volume 79 [ foz_us] 80-99 Automated erythrocyte mean corpuscular h emoglobin (mass per erythrocyte) 25 pg 25-34 Automated erythrocyte mean corpuscular h emoglobin concentration measurement (mass/volume) 32 g/dL 32-36 Automated erythrocyte distribution width ratio 14. 8 % 10.0- 14.5 Automated blood platelet count (count/volume) 230 10*3/uL [...] 10*3 1.0-4.0 Blood monocytes automated count (number/volume) 1. 3 10*3 0.0-1.0 Automated eosinophil count 0.2 10*3/uL 0 .0-0.3 Automated blood basophil count (count/volume) 0.0 10*3/uL 0.0-0.1 Manual blood segmented neutrophils/100 leukocytes 56 % NRG Manual blood lymphocytes/100 leukocytes 30 % NRG Manual eosinophils/100 leukocytes in nose 2 % NRG Blood polychromasia detection by light microscopy SLIGHT NRG Blood anisocytosis detection by light microscopy S LIGHT NRG Blood hypochromia detection by light microscopy SL [facility] NR Comprehensive metabolic panel - 10/28/16 19:35 Serum or plasma sodium measurement (moles/volume) 136 mmol/L 135-145 Serum or plasma potassium measurement (moles/volume) 3.6 mmol/L 3.6-5.0 Serum or plasma chloride measurement (moles/volume) 107 mmol/L 98-107 Carbon dioxide 22 mmol/L 21-32 Serum or plasma anion gap determination (moles/volume) 7 mmol/L 5-14 Serum or plasma urea nitrogen measurement (mass/volume ) 5 mg/dL 7-18 Serum or plasma creatinine measurement (mass/volume) 0.55 mg/dL 0.60-1.30 Serum or plasma urea nitrogen/creatinine mass ratio 9 NRG Serum or plasma creatinine measurement w ith calculation of estimated glomerular filtration rate > NRG Serum or plasma glucose measurement (mass/volume) 102 mg/dL 70-105 Serum or plasma calcium measurement (mass/volume) 8.7 mg/dL 8.5-10.1 Serum or plasma total bilirubin measurement (mass/volu me) 0.4 mg/dL 0.1-1.0 Serum or plasma alkaline phosphatase dain surement (enzymatic activity/volume) 115 U/L 40-136 Serum or plasma aspartate aminotransfera se measurement (enzymatic activity/volume) 15 U/L 5-34 Serum or plasma alanine aminotransferase measurement (enzymatic activity/volume) 14 U/L 0-55 Serum or plasma protein measurement (mass/volume) 5.8 g/dL 6.4-8.2 Serum or plasma albumin measurement (mass/volume) 2.9 g/dL 3.2-4.5 Lactate dehydrogenase 1 [enzymatic activ ity/volume] in serum or plasma - 10/28/16 19:35 Lactate dehydrogenase 1 [enzymatic activ ity/volume] in serum or plasma 144 U/L 125-220 Microscopic examination by wet preparati on - 11/01/16 21:00 WET PREP RESULTS LDR 10/02/16 21:17 BY PK NRG Complete blood count (CBC) with automate d white blood cell (WBC) differential - 11/02/16 01:03 Blood leukocytes automated count (number/volume) 11.5 10*3/uL 4.3-11.0 Blood erythrocytes automated count (number/volume) 4.41 10*6/uL 4.35-5.85 Venous blood hemoglobin measurement (mass/volume) 10.7 g/dL 11.5-16.0 Blood hematocrit (volume fraction) 34 % 35-52 Automated erythrocyte mean corpuscular volume 76 [ foz_us] 80-99 Automated erythrocyte mean corpuscular h emoglobin (mass per erythrocyte) 24 pg 25-34 Automated erythrocyte mean corpuscular h emoglobin concentration measurement (mass/volume) 32 g/dL 32-36 Automated erythrocyte distribution width ratio 14. 9 % 10.0- 14.5 Automated blood platelet count (count/volume) 283 10*3/uL [...] 10*3 1.0-4.0 Blood monocytes automated count (number/volume) 1. 1 10*3 0.0-1.0 Automated eosinophil count 0.1 10*3/uL 0 .0-0.3 Automated blood basophil count (count/volume) 0.0 10*3/uL 0.0-0.1 Blood type T Indirect antibody screen pa sohan - 11/02/16 01:03 ABO+Rh group AP NRG Transfusion band number [id number] NR Blood group antibody screen NEGATIVE NR G Automated blood complete blood count (he mogram) panel - 12/19/16 09:41 Blood leukocytes automated count (number/volume) 7.2 10*3/uL 4.3-11.0 Blood erythrocytes automated count (number/volume) 5.22 10*6/uL 4.35-5.85 Venous blood hemoglobin measurement (mass/volume) 12.7 g/dL 11.5-16.0 Blood hematocrit (volume fraction) 39 % 35-52 Automated erythrocyte mean corpuscular volume 75 [ foz_us] 80-99 Automated erythrocyte mean corpuscular h emoglobin (mass per erythrocyte) 24 pg 25-34 Automated erythrocyte mean corpuscular h emoglobin concentration measurement (mass/volume) 33 g/dL 32-36 Automated erythrocyte distribution width ratio 17. 0 % 10.0- 14.5 Automated blood platelet count (count/volume) 344 10*3/uL 130-400 Automated blood platelet mean volume measurement 10.2 [foz_us] 7.4-10.4 PT panel in platelet poor plasma by coag ulation assay - 12/19/16 09:41 Prothrombin time (PT) in platelet poor plasma by coagu lation assay 13.7 s 12.2-14.7 INR in platelet poor plasma or blood by coagulation as say 1.1 0.8-1.4 Activated partial thromboplastin time (a PTT) in platelet poor plasma bycoagulation assay - 12/19/16 09:41 Activated partial thromboplastin time (a PTT) in platelet poor plasma bycoagulation assay 28 s 24-35 Comprehensive metabolic panel - 12/19/16 09:41 Serum or plasma sodium measurement (moles/volume) 137 mmol/L 135-145 Serum or plasma potassium measurement (moles/volume) 3.9 mmol/L 3.6-5.0 Serum or plasma chloride measurement (moles/volume) 104 mmol/L 98-107 Carbon dioxide 24 mmol/L 21-32 Serum or plasma anion gap determination (moles/volume) 9 mmol/L 5-14 Serum or plasma urea nitrogen measurement (mass/volume ) 11 mg/dL 7-18 Serum or plasma creatinine measurement (mass/volume) 0.78 mg/dL 0.60-1.30 Serum or plasma urea nitrogen/creatinine mass ratio 14 NRG Serum or plasma creatinine measurement w ith calculation of estimated glomerular filtration rate > NRG Serum or plasma glucose measurement (mass/volume) 90 mg/dL 70-105 Serum or plasma calcium measurement (mass/volume) 9.3 mg/dL 8.5-10.1 Serum or plasma total bilirubin measurement (mass/volu me) 0.3 mg/dL 0.1-1.0 Serum or plasma alkaline phosphatase dain surement (enzymatic activity/volume) 121 U/L 40-136 Serum or plasma aspartate aminotransfera se measurement (enzymatic activity/volume) 20 U/L 5-34 Serum or plasma alanine aminotransferase measurement (enzymatic activity/volume) 22 U/L 0-55 Serum or plasma protein measurement (mass/volume) 7.1 g/dL 6.4-8.2 Serum or plasma albumin measurement (mass/volume) 4.0 g/dL 3.2-4.5 Complete blood count (CBC) with automate d white blood cell (WBC) differential - 02/28/17 20:05 Blood leukocytes automated count (number/volume) 17.2 10*3/uL 4.3-11.0 Blood erythrocytes automated count (number/volume) 5.55 10*6/uL 4.35-5.85 Venous blood hemoglobin measurement (mass/volume) 14.1 g/dL 11.5-16.0 Blood hematocrit (volume fraction) 43 % 35-52 Automated erythrocyte mean corpuscular volume 77 [ foz_us] 80-99 Automated erythrocyte mean corpuscular h emoglobin (mass per erythrocyte) 25 pg 25-34 Automated erythrocyte mean corpuscular h emoglobin concentration measurement (mass/volume) 33 g/dL 32-36 Automated erythrocyte distribution width ratio 15. 2 % 10.0- 14.5 Automated blood platelet count (count/volume) 383 10*3/uL [...] 10*3 1.0-4.0 Blood monocytes automated count (number/volume) 1. 2 10*3 0.0-1.0 Automated eosinophil count 0.2 10*3/uL 0 .0-0.3 Automated blood basophil count (count/volume) 0.1 10*3/uL 0.0-0.1 Serum or plasma choriogonadotropin (preg dawn test) detection - 02/28/17 20:05 Serum or plasma choriogonadotropin ( test) de tection NEGATIVE NEGATIVE Blood manual differential performed dete ction - 02/28/17 20:05 Blood monocytes/100 leukocytes 2 % NRG Manual blood segmented neutrophils/100 leukocytes 87 % NRG Blood band neutrophils/100 leukocytes 0 % NRG Manual blood lymphocytes/100 leukocytes 11 % NRG Manual eosinophils/100 leukocytes in nose 0 % NRG Manual blood basophils/100 leukocytes 0 % NRG Blood erythrocyte morphology finding identification NORMAL NRG Whole blood basic metabolic panel - 04/11 20:05 Serum or plasma sodium measurement (moles/volume) 140 mmol/L 135-145 Serum or plasma potassium measurement (moles/volume) 3.9 mmol/L 3.6-5.0 Serum or plasma chloride measurement (moles/volume) 106 mmol/L 98-107 Carbon dioxide 24 mmol/L 21-32 Serum or plasma anion gap determination (moles/volume) 10 mmol/L 5-14 Serum or plasma urea nitrogen measurement (mass/volume ) 16 mg/dL 7-18 Serum or plasma creatinine measurement (mass/volume) 0.84 mg/dL 0.60-1.30 Serum or plasma urea nitrogen/creatinine mass ratio 19 NRG Serum or plasma creatinine measurement w ith calculation of estimated glomerular filtration rate > NRG Serum or plasma glucose measurement (mass/volume) 106 mg/dL 70-105 Serum or plasma calcium measurement (mass/volume) 9.7 mg/dL 8.5-10.1 Streptococcus pyogenes antigen detection - 02/28/17 20:08 Streptococcus pyogenes antigen detection POSITIVE NEGATIVE Influenza virus A and B antigen detectio n - 02/28/17 20:08 FLU RESULT NEGATIVE FOR INFLUENZA A AND B ANTIGENS BY IA NRG Urine beta human chorionic gonadotropin (hCG) measurement - 06/08/17 21:55 Urine beta human chorionic gonadotropin (hCG) measurem ent NEGATIVE NEGATIVE Complete urinalysis with reflex to cultu re - 06/08/17 21:55 Urine color determination YELLOW NRG Urine clarity determination CLEAR NR G Urine pH measurement by test strip 6 5-9 Specific gravity of urine by test strip 1.025 1.016-1.022 Urine protein assay by test strip, semi-quantitative 2+ NEGATIVE Urine glucose detection by automated test strip NE GATIVE NEGATIVE Erythrocytes detection in urine sediment by light micr oscopy NEGATIVE NEGATIVE Urine ketones detection by automated test strip NE GATIVE NEGATIVE Urine nitrite detection by test strip NEGATIVE NEGATIVE Urine total bilirubin detection by test strip NEGA TIVE NEGATIVE Urine urobilinogen measurement by automated test strip (mass/volume) 1 mg/dL NORMAL Urine leukocyte esterase detection by dipstick 1+ NEGATIVE Automated urine sediment erythrocyte cou nt by microscopy (number/high power field) NONE NRG Automated urine sediment leukocyte count by microscopy (number/high power field) [HPF] NRG Bacteria detection in urine sediment by light microsco py NONE NRG Squamous epithelial cells detection in u rine sediment by light microscopy 5-10 NRG Crystals detection in urine sediment by light microsco py NONE NRG Casts detection in urine sediment by light microscopy NONE NRG Mucus detection in urine sediment by light microscopy NEGATIVE NRG Complete urinalysis with reflex to culture NO NRG Complete urinalysis with reflex to cultu re - 11/10/17 08:43 Urine color determination YELLOW NRG Urine clarity determination CLEAR NR G Urine pH measurement by test strip 6.5 5-9 Specific gravity of urine by test strip 1.010 1.016-1.022 Urine protein assay by test strip, semi-quantitative 1+ NEGATIVE Urine glucose detection by automated test strip NE GATIVE NEGATIVE Erythrocytes detection in urine sediment by light micr oscopy NEGATIVE NEGATIVE Urine ketones detection by automated test strip NE GATIVE NEGATIVE Urine nitrite detection by test strip NEGATIVE NEGATIVE Urine total bilirubin detection by test strip NEGA TIVE NEGATIVE Urine urobilinogen measurement by automated test strip (mass/volume) NORMAL NORMAL Urine leukocyte esterase detection by dipstick NEG ATIVE NEGATIVE Automated urine sediment erythrocyte cou nt by microscopy (number/high power field) NONE NRG Automated urine sediment leukocyte count by microscopy (number/high power field) NONE NRG Bacteria detection in urine sediment by light microsco py TRACE NRG Squamous epithelial cells detection in u rine sediment by light microscopy 2-5 NRG Crystals detection in urine sediment by light microsco py NONE NRG Casts detection in urine sediment by light microscopy NONE NRG Mucus detection in urine sediment by light microscopy NEGATIVE NRG Complete urinalysis with reflex to culture NO NRG Complete blood count (CBC) with automate d white blood cell (WBC) differential - 11/10/17 09:20 Blood leukocytes automated count (number/volume) 7.1 10*3/uL 4.3-11.0 Blood erythrocytes automated count (number/volume) 5.00 10*6/uL 4.35-5.85 Venous blood hemoglobin measurement (mass/volume) 13.3 g/dL 11.5-16.0 Blood hematocrit (volume fraction) 40 % 35-52 Automated erythrocyte mean corpuscular volume 80 [ foz_us] 80-99 Automated erythrocyte mean corpuscular h emoglobin (mass per erythrocyte) 27 pg 25-34 Automated erythrocyte mean corpuscular h emoglobin concentration measurement (mass/volume) 33 g/dL 32-36 Automated erythrocyte distribution width ratio 14. 4 % 10.0- 14.5 Automated blood platelet count (count/volume) 294 10*3/uL [...] 10*3 1.0-4.0 Blood monocytes automated count (number/volume) 0. 5 10*3 0.0-1.0 Automated eosinophil count 0.2 10*3/uL 0 .0-0.3 Automated blood basophil count (count/volume) 0.1 10*3/uL 0.0-0.1 Comprehensive metabolic panel - 11/10/17 09:20 Serum or plasma sodium measurement (moles/volume) 141 mmol/L 135-145 Serum or plasma potassium measurement (moles/volume) 4.2 mmol/L 3.6-5.0 Serum or plasma chloride measurement (moles/volume) 108 mmol/L 98-107 Carbon dioxide 25 mmol/L 21-32 Serum or plasma anion gap determination (moles/volume) 8 mmol/L 5-14 Serum or plasma urea nitrogen measurement (mass/volume ) 11 mg/dL 7-18 Serum or plasma creatinine measurement (mass/volume) 0.69 mg/dL 0.60-1.30 Serum or plasma urea nitrogen/creatinine mass ratio 16 NRG Serum or plasma creatinine measurement w ith calculation of estimated glomerular filtration rate > NRG Serum or plasma glucose measurement (mass/volume) 101 mg/dL 70-105 Serum or plasma calcium measurement (mass/volume) 9.2 mg/dL 8.5-10.1 Serum or plasma total bilirubin measurement (mass/volu me) 0.3 mg/dL 0.1-1.0 Serum or plasma alkaline phosphatase dain surement (enzymatic activity/volume) 91 U/L 40-136 Serum or plasma aspartate aminotransfera se measurement (enzymatic activity/volume) 21 U/L 5-34 Serum or plasma alanine aminotransferase measurement (enzymatic activity/volume) 22 U/L 0-55 Serum or plasma protein measurement (mass/volume) 7.5 g/dL 6.4-8.2 Serum or plasma albumin measurement (mass/volume) 3.8 g/dL 3.2-4.5 Lipase - 11/10/17 09:20 Lipase 22 U/L 8-78 Complete blood count (CBC) with automate d white blood cell (WBC) differential - 02/24/18 14:35 Blood leukocytes automated count (number/volume) 9.7 10*3/uL 4.3-11.0 Blood erythrocytes automated count (number/volume) 4.66 10*6/uL 4.35-5.85 Venous blood hemoglobin measurement (mass/volume) 12.4 g/dL 11.5-16.0 Blood hematocrit (volume fraction) 37 % 35-52 Automated erythrocyte mean corpuscular volume 80 [ foz_us] 80-99 Automated erythrocyte mean corpuscular h emoglobin (mass per erythrocyte) 27 pg 25-34 Automated erythrocyte mean corpuscular h emoglobin concentration measurement (mass/volume) 33 g/dL 32-36 Automated erythrocyte distribution width ratio 14. 5 % 10.0- 14.5 Automated blood platelet count (count/volume) 313 10*3/uL [...] 10*3 1.0-4.0 Blood monocytes automated count (number/volume) 0. 7 10*3 0.0-1.0 Automated eosinophil count 0.2 10*3/uL 0 .0-0.3 Automated blood basophil count (count/volume) 0.1 10*3/uL 0.0-0.1 Whole blood basic metabolic panel - 04/0 12/13 14:35 Serum or plasma sodium measurement (moles/volume) 136 mmol/L 135-145 Serum or plasma potassium measurement (moles/volume) 3.7 mmol/L 3.6-5.0 Serum or plasma chloride measurement (moles/volume) 105 mmol/L 98-107 Carbon dioxide 23 mmol/L 21-32 Serum or plasma anion gap determination (moles/volume) 8 mmol/L 5-14 Serum or plasma urea nitrogen measurement (mass/volume ) 12 mg/dL 7-18 Serum or plasma creatinine measurement (mass/volume) 0.78 mg/dL 0.60-1.30 Serum or plasma urea nitrogen/creatinine mass ratio 15 NRG Serum or plasma creatinine measurement w ith calculation of estimated glomerular filtration rate > NRG Serum or plasma glucose measurement (mass/volume) 92 mg/dL 70-105 Serum or plasma calcium measurement (mass/volume) 9.2 mg/dL 8.5-10.1 Serum or plasma choriogonadotropin measu rement (units/volume) - 02/24/18 14:35 Serum or plasma choriogonadotropin measurement (units/ volume) 56159 m[iU]/mL <5 Complete urinalysis with reflex to cultu re - 02/24/18 16:00 Urine color determination YELLOW NRG Urine clarity determination CLEAR NR G Urine pH measurement by test strip 6 5-9 Specific gravity of urine by test strip 1.020 1.016-1.022 Urine protein assay by test strip, semi-quantitative NEGATIVE NEGATIVE Urine glucose detection by automated test strip NE GATIVE NEGATIVE Erythrocytes detection in urine sediment by light micr oscopy NEGATIVE NEGATIVE Urine ketones detection by automated test strip NE GATIVE NEGATIVE Urine nitrite detection by test strip NEGATIVE NEGATIVE Urine total bilirubin detection by test strip NEGA TIVE NEGATIVE Urine urobilinogen measurement by automated test strip (mass/volume) NORMAL NORMAL Urine leukocyte esterase detection by dipstick NEG ATIVE NEGATIVE Automated urine sediment erythrocyte cou nt by microscopy (number/high power field) NONE NRG Automated urine sediment leukocyte count by microscopy (number/high power field) NONE NRG Bacteria detection in urine sediment by light microsco py NEGATIVE NRG Squamous epithelial cells detection in u rine sediment by light microscopy 0-2 NRG Crystals detection in urine sediment by light microsco py NONE NRG Casts detection in urine sediment by light microscopy NONE NRG Mucus detection in urine sediment by light microscopy NEGATIVE NRG Complete urinalysis with reflex to culture NO NRG Methicillin resistant Staphylococcus aur eus (MRSA) screening culture - 02/27/18 13:12 Methicillin resistant Staphylococcus aureus (MRSA) scr eening culture NEG NRG Complete urinalysis with reflex to cultu re - 01/15/19 15:20 Urine color determination YELLOW NRG Urine clarity determination CLEAR NR G Urine pH measurement by test strip 6 5-9 Specific gravity of urine by test strip 1.025 1.016-1.022 Urine protein assay by test strip, semi-quantitative 1+ NEGATIVE Urine glucose detection by automated test strip NE GATIVE NEGATIVE Erythrocytes detection in urine sediment by light micr oscopy NEGATIVE NEGATIVE Urine ketones detection by automated test strip NE GATIVE NEGATIVE Urine nitrite detection by test strip NEGATIVE NEGATIVE Urine total bilirubin detection by test strip NEGA TIVE NEGATIVE Urine urobilinogen measurement by automated test strip (mass/volume) NORMAL NORMAL Urine leukocyte esterase detection by dipstick 1+ NEGATIVE Automated urine sediment erythrocyte cou nt by microscopy (number/high power field) NONE NRG Automated urine sediment leukocyte count by microscopy (number/high power field) [HPF] NRG Bacteria detection in urine sediment by light microsco py FEW NRG Squamous epithelial cells detection in u rine sediment by light microscopy 10-25 NRG Crystals detection in urine sediment by light microsco py NONE NRG Casts detection in urine sediment by light microscopy NONE NRG Mucus detection in urine sediment by light microscopy NEGATIVE NRG Complete urinalysis with reflex to culture NO NRG Bacterial urine culture - 01/15/19 15:20 Bacterial urine culture 3 OR MORE NRG COLONY COUNT 50,000 CFU/ML NRG FTX;REPORTABLE (GRAM POSITIVE) SUGGESTING PROBABLE NRG FREE TEXT ENTRY 2 COLLECTION CONTAMINATION WITH SK IN JASWANT NRG FREE TEXT ENTRY 3 NO SUSCEPTIBILITY PERFORMED NRG Complete blood count (CBC) with automate d white blood cell (WBC) differential - 01/15/19 15:55 Blood leukocytes automated count (number/volume) 12.0 10*3/uL 4.3-11.0 Blood erythrocytes automated count (number/volume) 4.12 10*6/uL 4.35-5.85 Venous blood hemoglobin measurement (mass/volume) 11.8 g/dL 11.5-16.0 Blood hematocrit (volume fraction) 34 % 35-52 Automated erythrocyte mean corpuscular volume 83 [ foz_us] 80-99 Automated erythrocyte mean corpuscular h emoglobin (mass per erythrocyte) 29 pg 25-34 Automated erythrocyte mean corpuscular h emoglobin concentration measurement (mass/volume) 35 g/dL 32-36 Automated erythrocyte distribution width ratio 14. 4 % 10.0- 14.5 Automated blood platelet count (count/volume) 275 10*3/uL 130-400 Automated blood platelet mean volume measurement 11.0 [foz_us] 7.4-10.4 Automated blood neutrophils/100 leukocytes 70 % 42-75 Automated blood lymphocytes/100 leukocytes 18 % 12-44 Blood monocytes/100 leukocytes 8 % 0-12 Automated blood eosinophils/100 leukocytes 4 % 0-10 Automated blood basophils/100 leukocytes 0 % 0-10 Blood neutrophils automated count (number/volume) 8.4 10*3 1.8-7.8 Blood lymphocytes automated count (number/volume) 2.2 10*3 1.0-4.0 Blood monocytes automated count (number/volume) 0. 9 10*3 0.0-1.0 Automated eosinophil count 0.5 10*3/uL 0 .0-0.3 Automated blood basophil count (count/volume) 0.0 10*3/uL 0.0-0.1 Urine protein/creatinine mass ratio - 10:20 Urine protein measurement (mass/volume) 10 mg/dL 6-12 Urine creatinine measurement (mass/volume) 50 mg/d L 30-125 Urine protein/creatinine mass ratio 0.20 NRG Blood CBC with ordered manual differenti al panel - 02/14/19 10:40 Blood leukocytes automated count (number/volume) 10.2 10*3/uL 4.3-11.0 Blood erythrocytes automated count (number/volume) 4.03 10*6/uL 4.35-5.85 Venous blood hemoglobin measurement (mass/volume) 11.2 g/dL 11.5-16.0 Blood hematocrit (volume fraction) 33 % 35-52 Automated erythrocyte mean corpuscular volume 83 [ foz_us] 80-99 Automated erythrocyte mean corpuscular h emoglobin (mass per erythrocyte) 28 pg 25-34 Automated erythrocyte mean corpuscular h emoglobin concentration measurement (mass/volume) 34 g/dL 32-36 Automated erythrocyte distribution width ratio 13. 9 % 10.0- 14.5 Automated blood platelet count (count/volume) 253 10*3/uL 130-400 Automated blood platelet mean volume measurement 10.9 [foz_us] 7.4-10.4 Automated blood neutrophils/100 leukocytes 73 % 42-75 Automated blood lymphocytes/100 leukocytes 17 % 12-44 Blood monocytes/100 leukocytes 3 % NRG Automated blood eosinophils/100 leukocytes 4 % 0-10 Automated blood basophils/100 leukocytes 0 % 0-10 Blood neutrophils automated count (number/volume) 7.4 10*3 1.8-7.8 Blood lymphocytes automated count (number/volume) 1.8 10*3 1.0-4.0 Blood monocytes automated count (number/volume) 0. 6 10*3 0.0-1.0 Automated eosinophil count 0.4 10*3/uL 0 .0-0.3 Automated blood basophil count (count/volume) 0.0 10*3/uL 0.0-0.1 Manual blood segmented neutrophils/100 leukocytes 76 % NRG Blood band neutrophils/100 leukocytes 0 % NRG Manual blood lymphocytes/100 leukocytes 19 % NRG Manual eosinophils/100 leukocytes in nose 2 % NRG Manual blood basophils/100 leukocytes 0 % NRG Blood erythrocyte morphology finding identification NORMAL [facility] Comprehensive metabolic panel - 02/14/19 10:40 Serum or plasma sodium measurement (moles/volume) 136 mmol/L 135-145 Serum or plasma potassium measurement (moles/volume) 3.7 mmol/L 3.6-5.0 Serum or plasma chloride measurement (moles/volume) 105 mmol/L 98-107 Carbon dioxide 24 mmol/L 21-32 Serum or plasma anion gap determination (moles/volume) 7 mmol/L 5-14 Serum or plasma urea nitrogen measurement (mass/volume ) 6 mg/dL 7-18 Serum or plasma creatinine measurement (mass/volume) 0.61 mg/dL 0.60-1.30 Serum or plasma urea nitrogen/creatinine mass ratio 10 NRG Serum or plasma creatinine measurement w ith calculation of estimated glomerular filtration rate > NRG Serum or plasma glucose measurement (mass/volume) 95 mg/dL 70-105 Serum or plasma calcium measurement (mass/volume) 8.7 mg/dL 8.5-10.1 Serum or plasma total bilirubin measurement (mass/volu me) 0.3 mg/dL 0.1-1.0 Serum or plasma alkaline phosphatase dain surement (enzymatic activity/volume) 80 U/L 40-136 Serum or plasma aspartate aminotransfera se measurement (enzymatic activity/volume) 15 U/L 5-34 Serum or plasma alanine aminotransferase measurement (enzymatic activity/volume) 14 U/L 0-55 Serum or plasma protein measurement (mass/volume) 6.2 g/dL 6.4-8.2 Serum or plasma albumin measurement (mass/volume) 3.1 g/dL 3.2-4.5 CALCIUM CORRECTED 9.4 mg/dL 8.5-10.1 Serum or plasma uric acid measurement (m ass/volume) - 02/14/19 10:40 Serum or plasma uric acid measurement (mass/volume) 3.0 mg/dL 2.6-7.2 Lactate dehydrogenase 1 [enzymatic activ ity/volume] in serum or plasma - 02/14/19 10:40 Lactate dehydrogenase 1 [enzymatic activ ity/volume] in serum or plasma 183 U/L 125-220 Microscopic examination by wet preparati on - 02/20/19 10:37 WET PREP RESULTS ALREADY DRY ON SLIDE N RG Complete urinalysis with reflex to cultu re - 02/20/19 10:37 Urine color determination FRANCESCO NRG Urine clarity determination CLEAR NR G Urine pH measurement by test strip 6 5-9 Specific gravity of urine by test strip 1.020 1.016-1.022 Urine protein assay by test strip, semi-quantitative 2+ NEGATIVE Urine glucose detection by automated test strip 1+ NEGATIVE Erythrocytes detection in urine sediment by light micr oscopy NEGATIVE NEGATIVE Urine ketones detection by automated test strip 2+ NEGATIVE Urine nitrite detection by test strip NEGATIVE NEGATIVE Urine total bilirubin detection by test strip NEGA TIVE NEGATIVE Urine urobilinogen measurement by automated test strip (mass/volume) NORMAL NORMAL Urine leukocyte esterase detection by dipstick 1+ NEGATIVE Automated urine sediment erythrocyte cou nt by microscopy (number/high power field) NONE NRG Automated urine sediment leukocyte count by microscopy (number/high power field) RARE NRG Bacteria detection in urine sediment by light microsco py TRACE NRG Squamous epithelial cells detection in u rine sediment by light microscopy 2-5 NRG Crystals detection in urine sediment by light microsco py NONE NRG Casts detection in urine sediment by light microscopy NONE NRG Mucus detection in urine sediment by light microscopy NEGATIVE NRG Complete urinalysis with reflex to culture NO NRG Urine protein/creatinine mass ratio - 10:37 Urine protein measurement (mass/volume) 7 mg/dL 6-12 Urine creatinine measurement (mass/volume) 71 mg/d L 30-125 Urine protein/creatinine mass ratio 0.10 NRG Bacterial urine culture - 02/20/19 10:37 Bacterial urine culture NG NRG Urine protein/creatinine mass ratio - 15:15 Urine protein measurement (mass/volume) 12 mg/dL 6-12 Urine creatinine measurement (mass/volume) 59 mg/d L 30-125 Urine protein/creatinine mass ratio 0.20 NRG Complete blood count (CBC) with automate d white blood cell (WBC) differential - 03/07/19 15:30 Blood leukocytes automated count (number/volume) 10.9 10*3/uL 4.3-11.0 Blood erythrocytes automated count (number/volume) 3.87 10*6/uL 4.35-5.85 Venous blood hemoglobin measurement (mass/volume) 10.6 g/dL 11.5-16.0 Blood hematocrit (volume fraction) 32 % 35-52 Automated erythrocyte mean corpuscular volume 82 [ foz_us] 80-99 Automated erythrocyte mean corpuscular h emoglobin (mass per erythrocyte) 27 pg 25-34 Automated erythrocyte mean corpuscular h emoglobin concentration measurement (mass/volume) 34 g/dL 32-36 Automated erythrocyte distribution width ratio 14. 2 % 10.0- 14.5 Automated blood platelet count (count/volume) 294 10*3/uL 130-400 Automated blood platelet mean volume measurement 10.7 [foz_us] 7.4-10.4 Automated blood neutrophils/100 leukocytes 63 % 42-75 Automated blood lymphocytes/100 leukocytes 23 % 12-44 Blood monocytes/100 leukocytes 7 % 0-12 Automated blood eosinophils/100 leukocytes 7 % 0-10 Automated blood basophils/100 leukocytes 0 % 0-10 Blood neutrophils automated count (number/volume) 6.9 10*3 1.8-7.8 Blood lymphocytes automated count (number/volume) 2.5 10*3 1.0-4.0 Blood monocytes automated count (number/volume) 0. 8 10*3 0.0-1.0 Automated eosinophil count 0.8 10*3/uL 0 .0-0.3 Automated blood basophil count (count/volume) 0.0 10*3/uL 0.0-0.1 Comprehensive metabolic panel - 03/07/19 15:30 Serum or plasma sodium measurement (moles/volume) 138 mmol/L 135-145 Serum or plasma potassium measurement (moles/volume) 3.6 mmol/L 3.6-5.0 Serum or plasma chloride measurement (moles/volume) 108 mmol/L 98-107 Carbon dioxide 18 mmol/L 21-32 Serum or plasma anion gap determination (moles/volume) 12 mmol/L 5-14 Serum or plasma urea nitrogen measurement (mass/volume ) 9 mg/dL 7-18 Serum or plasma creatinine measurement (mass/volume) 0.62 mg/dL 0.60-1.30 Serum or plasma urea nitrogen/creatinine mass ratio 15 NRG Serum or plasma creatinine measurement w ith calculation of estimated glomerular filtration rate > NRG Serum or plasma glucose measurement (mass/volume) 118 mg/dL 70-105 Serum or plasma calcium measurement (mass/volume) 9.0 mg/dL 8.5-10.1 Serum or plasma total bilirubin measurement (mass/volu me) 0.2 mg/dL 0.1-1.0 Serum or plasma alkaline phosphatase dain surement (enzymatic activity/volume) 81 U/L 40-136 Serum or plasma aspartate aminotransfera se measurement (enzymatic activity/volume) 17 U/L 5-34 Serum or plasma alanine aminotransferase measurement (enzymatic activity/volume) 20 U/L 0-55 Serum or plasma protein measurement (mass/volume) 6.2 g/dL 6.4-8.2 Serum or plasma albumin measurement (mass/volume) 3.0 g/dL 3.2-4.5 CALCIUM CORRECTED 9.8 mg/dL 8.5-10.1 Serum or plasma uric acid measurement (m ass/volume) - 03/07/19 15:30 Serum or plasma uric acid measurement (mass/volume) 2.6 mg/dL 2.6-7.2 Lactate dehydrogenase 1 [enzymatic activ ity/volume] in serum or plasma - 03/07/19 15:30 Lactate dehydrogenase 1 [enzymatic activ ity/volume] in serum or plasma 214 U/L 125-220 Complete blood count (CBC) with automate d white blood cell (WBC) differential - 03/18/19 09:41 Blood leukocytes automated count (number/volume) 9.9 10*3/uL 4.3-11.0 Blood erythrocytes automated count (number/volume) 4.07 10*6/uL 4.35-5.85 Venous blood hemoglobin measurement (mass/volume) 10.8 g/dL 11.5-16.0 Blood hematocrit (volume fraction) 33 % 35-52 Automated erythrocyte mean corpuscular volume 82 [ foz_us] 80-99 Automated erythrocyte mean corpuscular h emoglobin (mass per erythrocyte) 27 pg 25-34 Automated erythrocyte mean corpuscular h emoglobin concentration measurement (mass/volume) 33 g/dL 32-36 Automated erythrocyte distribution width ratio 14. 1 % 10.0- 14.5 Automated blood platelet count (count/volume) 267 10*3/uL 130-400 Automated blood platelet mean volume measurement 11.5 [foz_us] 7.4-10.4 Automated blood neutrophils/100 leukocytes 70 % 42-75 Automated blood lymphocytes/100 leukocytes 21 % 12-44 Blood monocytes/100 leukocytes 7 % 0-12 Automated blood eosinophils/100 leukocytes 2 % 0-10 Automated blood basophils/100 leukocytes 1 % 0-10 Blood neutrophils automated count (number/volume) 6.9 10*3 1.8-7.8 Blood lymphocytes automated count (number/volume) 2.0 10*3 1.0-4.0 Blood monocytes automated count (number/volume) 0. 7 10*3 0.0-1.0 Automated eosinophil count 0.2 10*3/uL 0 .0-0.3 Automated blood basophil count (count/volume) 0.1 10*3/uL 0.0-0.1 Comprehensive metabolic panel - 03/18/19 09:41 Serum or plasma sodium measurement (moles/volume) 137 mmol/L 135-145 Serum or plasma potassium measurement (moles/volume) 4.0 mmol/L 3.6-5.0 Serum or plasma chloride measurement (moles/volume) 104 mmol/L 98-107 Carbon dioxide 25 mmol/L 21-32 Serum or plasma anion gap determination (moles/volume) 8 mmol/L 5-14 Serum or plasma urea nitrogen measurement (mass/volume ) 7 mg/dL 7-18 Serum or plasma creatinine measurement (mass/volume) 0.59 mg/dL 0.60-1.30 Serum or plasma urea nitrogen/creatinine mass ratio 12 NRG Serum or plasma creatinine measurement w ith calculation of estimated glomerular filtration rate > NRG Serum or plasma glucose measurement (mass/volume) 109 mg/dL 70-105 Serum or plasma calcium measurement (mass/volume) 9.0 mg/dL 8.5-10.1 Serum or plasma total bilirubin measurement (mass/volu me) 0.4 mg/dL 0.1-1.0 Serum or plasma alkaline phosphatase dain surement (enzymatic activity/volume) 94 U/L 40-136 Serum or plasma aspartate aminotransfera se measurement (enzymatic activity/volume) 14 U/L 5-34 Serum or plasma alanine aminotransferase measurement (enzymatic activity/volume) 18 U/L 0-55 Serum or plasma protein measurement (mass/volume) 6.1 g/dL 6.4-8.2 Serum or plasma albumin measurement (mass/volume) 3.0 g/dL 3.2-4.5 CALCIUM CORRECTED 9.8 mg/dL 8.5-10.1 Serum or plasma uric acid measurement (m ass/volume) - 03/18/19 09:41 Serum or plasma uric acid measurement (mass/volume) 3.1 mg/dL 2.6-7.2 Lactate dehydrogenase 1 [enzymatic activ ity/volume] in serum or plasma - 03/18/19 09:41 Lactate dehydrogenase 1 [enzymatic activ ity/volume] in serum or plasma 170 U/L 125-220 Urine protein/creatinine mass ratio - 09:41 Urine protein measurement (mass/volume) 41 mg/dL 6-12 Urine creatinine measurement (mass/volume) 183 mg/ dL 30-125 Urine protein/creatinine mass ratio 0.22 NRG Urine protein/creatinine mass ratio - 10:29 Urine protein measurement (mass/volume) < mg/dL 6-12 Urine creatinine measurement (mass/volume) 27 mg/d L 30-125 Urine protein/creatinine mass ratio TNP NRG Complete urinalysis with reflex to cultu re - 04/02/19 09:10 Urine color determination YELLOW NRG Urine clarity determination CLEAR NR G Urine pH measurement by test strip 7 5-9 Specific gravity of urine by test strip 1.005 1.016-1.022 Urine protein assay by test strip, semi-quantitative 1+ NEGATIVE Urine glucose detection by automated test strip NE GATIVE NEGATIVE Erythrocytes detection in urine sediment by light micr oscopy NEGATIVE NEGATIVE Urine ketones detection by automated test strip NE GATIVE NEGATIVE Urine nitrite detection by test strip NEGATIVE NEGATIVE Urine total bilirubin detection by test strip NEGA TIVE NEGATIVE Urine urobilinogen measurement by automated test strip (mass/volume) NORMAL NORMAL Urine leukocyte esterase detection by dipstick NEG ATIVE NEGATIVE Automated urine sediment erythrocyte cou nt by microscopy (number/high power field) NONE NRG Automated urine sediment leukocyte count by microscopy (number/high power field) [HPF] NRG Bacteria detection in urine sediment by light microsco py TRACE NRG Squamous epithelial cells detection in u rine sediment by light microscopy 5-10 NRG Crystals detection in urine sediment by light microsco py NONE NRG Casts detection in urine sediment by light microscopy NONE NRG Mucus detection in urine sediment by light microscopy NEGATIVE NRG Complete urinalysis with reflex to culture NO NRG Urine protein/creatinine mass ratio - 09:10 Urine protein measurement (mass/volume) 15 mg/dL 6-12 Urine creatinine measurement (mass/volume) 51 mg/d L 30-125 Urine protein/creatinine mass ratio 0.29 NRG Complete blood count (CBC) with automate d white blood cell (WBC) differential - 04/02/19 11:20 Blood leukocytes automated count (number/volume) 9.1 10*3/uL 4.3-11.0 Blood erythrocytes automated count (number/volume) 4.07 10*6/uL 4.35-5.85 Venous blood hemoglobin measurement (mass/volume) 10.6 g/dL 11.5-16.0 Blood hematocrit (volume fraction) 33 % 35-52 Automated erythrocyte mean corpuscular volume 80 [ foz_us] 80-99 Automated erythrocyte mean corpuscular h emoglobin (mass per erythrocyte) 26 pg 25-34 Automated erythrocyte mean corpuscular h emoglobin concentration measurement (mass/volume) 33 g/dL 32-36 Automated erythrocyte distribution width ratio 14. 8 % 10.0- 14.5 Automated blood platelet count (count/volume) 239 10*3/uL 130-400 Automated blood platelet mean volume measurement 11.0 [foz_us] 7.4-10.4 Automated blood neutrophils/100 leukocytes 72 % 42-75 Automated blood lymphocytes/100 leukocytes 19 % 12-44 Blood monocytes/100 leukocytes 8 % 0-12 Automated blood eosinophils/100 leukocytes 2 % 0-10 Automated blood basophils/100 leukocytes 0 % 0-10 Blood neutrophils automated count (number/volume) 6.5 10*3 1.8-7.8 Blood lymphocytes automated count (number/volume) 1.7 10*3 1.0-4.0 Blood monocytes automated count (number/volume) 0. 7 10*3 0.0-1.0 Automated eosinophil count 0.1 10*3/uL 0 .0-0.3 Automated blood basophil count (count/volume) 0.0 10*3/uL 0.0-0.1 Comprehensive metabolic panel - 04/02/19 11:20 Serum or plasma sodium measurement (moles/volume) 137 mmol/L 135-145 Serum or plasma potassium measurement (moles/volume) 3.6 mmol/L 3.6-5.0 Serum or plasma chloride measurement (moles/volume) 106 mmol/L 98-107 Carbon dioxide 25 mmol/L 21-32 Serum or plasma anion gap determination (moles/volume) 6 mmol/L 5-14 Serum or plasma urea nitrogen measurement (mass/volume ) 6 mg/dL 7-18 Serum or plasma creatinine measurement (mass/volume) 0.57 mg/dL 0.60-1.30 Serum or plasma urea nitrogen/creatinine mass ratio 11 NRG Serum or plasma creatinine measurement w ith calculation of estimated glomerular filtration rate > NRG Serum or plasma glucose measurement (mass/volume) 113 mg/dL 70-105 Serum or plasma calcium measurement (mass/volume) 8.9 mg/dL 8.5-10.1 Serum or plasma total bilirubin measurement (mass/volu me) 0.3 mg/dL 0.1-1.0 Serum or plasma alkaline phosphatase dain surement (enzymatic activity/volume) 83 U/L 40-136 Serum or plasma aspartate aminotransfera se measurement (enzymatic activity/volume) 14 U/L 5-34 Serum or plasma alanine aminotransferase measurement (enzymatic activity/volume) 12 U/L 0-55 Serum or plasma protein measurement (mass/volume) 5.9 g/dL 6.4-8.2 Serum or plasma albumin measurement (mass/volume) 2.8 g/dL 3.2-4.5 CALCIUM CORRECTED 9.9 mg/dL 8.5-10.1 Serum or plasma uric acid measurement (m ass/volume) - 04/02/19 11:20 Serum or plasma uric acid measurement (mass/volume) 3.0 mg/dL 2.6-7.2 Lactate dehydrogenase 1 [enzymatic activ ity/volume] in serum or plasma - 04/02/19 11:20 Lactate dehydrogenase 1 [enzymatic activ ity/volume] in serum or plasma 150 U/L 125-220 Blood type T Indirect antibody screen pa sohan - 04/02/19 11:20 ABO+Rh group AP NRG Transfusion band number [id number] NRG Blood group antibody screen NEGATIVE NR G Complete blood count (CBC) with automate d white blood cell (WBC) differential - 04/03/19 04:35 Blood leukocytes automated count (number/volume) 9.7 10*3/uL 4.3-11.0 Blood erythrocytes automated count (number/volume) 4.01 10*6/uL 4.35-5.85 Venous blood hemoglobin measurement (mass/volume) 10.5 g/dL 11.5-16.0 Blood hematocrit (volume fraction) 32 % 35-52 Automated erythrocyte mean corpuscular volume 80 [ foz_us] 80-99 Automated erythrocyte mean corpuscular h emoglobin (mass per erythrocyte) 26 pg 25-34 Automated erythrocyte mean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
[2020-04-06 07:43] LABS: BILIRUBIN,URINE NEGATIVE (NEGATIVE); CLARITY,URINE TURBID; COLOR,URINE YELLOW; GLUCOSE, URINE (UA) NEGATIVE (NEGATIVE); KETONES,URINE NEGATIVE (NEGATIVE); LEUKOCYTE ESTERASE ,URINE 2+ (NEGATIVE); NITRITE,URINE NEGATIVE (NEGATIVE); PH,URINE 5.5 (5-9); PROTEIN,URINE 2+ (NEGATIVE)
--- NOTE | 2020-04-06 07:46 | ED GU-Female ---
General Chief Complaint: Abdominal/GI Problems Stated Complaint: ABD PAIN,PELVIC PAIN Nursing Triage Note: ARRIVED VIA AMB TO ROOM 09 WITH COMPLAINTS OF RIGHT LOWER ABD PAIN X24 HRS AND GROIN PAIN X3-4 DAYS. STATES SHE CALLED [facility] YESTERDAY WHO STARTED HER ON A ABX AND DIFLUCAN. Nursing Sepsis Screen: No Definite Risk Source: patient Exam Limitations: no limitations History of Present Illness Date Seen by Provider: April 06, 2020 Time Seen by Provider: 07:32 Initial Comments Here with right lower quadrant and right sided pelvic pain that has been going on for a few days. Notes vaginal discharge during that time. She talked to her OB doctor who prescribed Diflucan. That was taken 3 days ago and has not helped. Yesterday, she had talked with her doctor again and they initiated antibiotics for possible urinary tract infection. She has taken one dose of the antibiotic and that has not helped either. Presents for persistence of pain that is not better with Tylenol and vaginal discharge. She does report dysuria and states that causes pain on the right side and then in the bladder/vaginal area. Does have history of endometriosis and polycystic ovarian syndrome. She has had 6 pregnancies with 5 live births. She just started on control injection for the endometriosis. Reports nausea but no vomiting. Denies diarrhea or constipation. Timing/Duration: getting worse, other (4 days) Severity/Quality: moderate, aching, burning Location: RLQ, suprapubic Radiation: vaginal, urethral Activities at Onset: none Sexual Triangle History: less than 2 months ago (several weeks ago), single partner Modifying Factors: Worsens With Movement, Worsens With Urinating Associated Symptoms: abdominal pain, dysuria; No fever/chills, No lower back pain Allergies and Home Medications Allergies Coded Allergies: No Known Drug Allergies (Unverified , 07/11/10) Home Medications Docusate Sodium 100 Mg Capsule, 100 MG PO BID Prescribed by: PEPE RAPP on 04/02/19 164 Ibuprofen 800 Mg Tablet, 800 MG PO Q6H PRN for PAIN Prescribed by: PEPE RAPP on 04/02/19 164 Oxycodone HCl/Acetaminophen 1 Each Tablet, 1 TAB PO Q4H PRN for PAIN Prescribed by: PEPE RAPP on 04/02/19 164 Vit W-Ca,Fe,FA(<1 mg) 1 Each Tablet, 1 EACH PO DAILY, (Reported) Patient Home Medication List Home Medication List Reviewed: Yes Review of Systems Review of Systems Constitutional: see HPI; No chills, No fever EENTM: no symptoms reported Respiratory: no symptoms reported Cardiovascular: no symptoms reported Gastrointestinal: see HPI Genitourinary: see HPI Musculoskeletal: no symptoms reported Skin: no symptoms reported Psychiatric/Neurological: No Symptoms Reported Past Nejqbtk-Qvffdk-Jywsty Hx Past Med/Social Hx: Reviewed Nursing Past Med/Soc Hx Patient Social History Alcohol Use: Occasionally Uses Recreational Drug Use: No Smoking Status: Never a Smoker Type Used: Cigarettes Recent Foreign Travel: No Contact w/Someone Who Travel: No Recent Infectious Disease Expo: No Recent Hopitalizations: No Immunizations Up To Date Tetanus Booster (TDap): Unknown PED Vaccines UTD: No Date of Influenza Vaccine: Aug 26, 2012 Seasonal Allergies Seasonal Allergies: No Past Medical History Surgeries: Yes (LEFT SHOULDER X2, X 4, MASS REMOVED FROM LEFT SIDE OF JAW) Adenoidectomy, Appendectomy, Section, Orthopedic, Tonsillectomy Respiratory: No Cardiac: No Neurological: No Reproductive Disorders: No Female Reproductive Disorders: Denies Sexually Transmitted Disease: Yes (CHLAMYDIA 2009, Gonnerhea 2011, ) HIV/AIDS: No Gastrointestinal: No Musculoskeletal: Yes (LEFT SHOULDER PROBLEMS) Arthritis Endocrine: No HEENT: No Cancer: No Psychosocial: No Integumentary: No Blood Disorders: No Adverse Reaction/Blood Tranf: No Family Medical History Reviewed Nursing Family Hx Diabetes mellitus 19 FATHER 19 MOTHER Hypertension 19 MOTHER Physical Exam Vital Signs Vital Signs - First Documented 04/06/20 07:15 Temp 36.8 Pulse 98 Resp 16 B/P (MAP) 138/93 (108) Pulse Ox 98 O2 Delivery Room Air Capillary Refill : Less Than 3 Seconds Height, Weight, BMI Height: 5'8.00" Weight: 347lbs. 2.0oz. 157.224164sz; 50.00 BMI Method:Stated General Appearance: WD/WN, no apparent distress Cardiovascular: regular rate, rhythm, no murmur Respiratory: lungs clear, normal breath sounds Gastrointestinal: soft, tenderness (suprapubic and right lower quadrant) Pelvic: normal external exam, discharge (ceballos-white and watery), tender w/ cervical motion, tender uterus, other (noted some cervical irritation and vaginal cuff irritation distally near cervix. Moderate amount of melgar white and watery discharge noted. Tender adnexa on the right greater than left but greatest at the cervix.) Back: normal inspection, no CVA tenderness, no vertebral tenderness Extremities: non-tender, normal inspection Neurologic/Psychiatric: alert, oriented x 3 Skin: normal color, warm/dry Progress/Results/Core Measures Suspected Sepsis Recent Fever Within 48 Hours: No Infection Criteria Present: Suspected New Infection New/Unexplained Altered Menta: No Sepsis Screen: No Definite Risk SIRS Temperature: Pulse: 98 Respiratory Rate: 16 Blood Pressure 138 /93 Mean: 108 Results/Orders Lab Results Laboratory Tests Test 04/06/20 07:30 04/06/20 08:00 Range/Units Urine Color YELLOW Urine Clarity TURBID Urine pH 5.5 5-9 Urine Specific [place] >=1.030 1.016-1.022 Urine Protein 2+ H NEGATIVE Urine Glucose (UA) NEGATIVE NEGATIVE Urine Ketones NEGATIVE NEGATIVE Urine Nitrite NEGATIVE NEGATIVE Urine Bilirubin NEGATIVE NEGATIVE Urine Urobilinogen 0.2 < = 1.0 MG/DL Urine Leukocyte Esterase 2+ H NEGATIVE Urine RBC (Auto) 2+ H NEGATIVE Urine RBC TNTC H /HPF Urine WBC 50-100 H /HPF Urine Squamous Epithelial Cells 5-10 /HPF Urine Crystals NONE /LPF Urine Bacteria LARGE H /HPF Urine Casts NONE /LPF Urine Mucus NEGATIVE /LPF Urine Culture Indicated YES Micro Results Microbiology 04/06/20 Genital Culture, Resulted Pending 04/06/20 Wet Prep - Final, Resulted My Orders Orders - LASHONDA GUTIERREZ MD Ua Culture If Indicated (04/06/20 07:31) Urine Bedside (04/06/20 07:31) Wet Prep (04/06/20 07:40) Neisseria Gonorrhea Swab (04/06/20 07:40) Genital Culture (04/06/20 07:40) Chlamydia Trachomatis Swab (04/06/20 07:40) Ondansetron Oral Dissolve Tab (Zofran (04/06/20 07:47) Ketorolac Injection (Toradol Injection) (04/06/20 07:47) Urine Culture (04/06/20 07:30) Ceftriaxone For Im Use (Rocephin For Im (04/06/20 09:00) Azithromycin Tablet (Zithromax Tablet) (04/06/20 08:48) Lidocaine 1% Inj 20 Ml (Xylocaine 1% Inj (04/06/20 09:00) Us Non Ob Pelvis Comp/Transvag (04/06/20 08:48) Hydrocodone/Apap 7.5/325 Tab (Lortab 7. (04/06/20 09:18) Medications Given in ED Current Medications Medications Dose Ordered Sig/Zeeshan Route Start Time Stop Time Status Last Admin Dose Admin Ceftriaxone Sodium 250 mg ONCE ONCE IM 04/06/20 09:00 04/06/20 09:01 DC 04/06/20 09:14 250 MG Lidocaine HCl 0.9 ml ONCE ONCE INJ 04/06/20 09:00 04/06/20 09:01 DC 04/06/20 09:14 0.9 ML Vital Signs/I&O 04/06/20 07:15 Temp 36.8 Pulse 98 Resp 16 B/P (MAP) 138/93 (108) Pulse Ox 98 O2 Delivery Room Air Capillary Refill : Less Than 3 Seconds Blood Pressure Mean: 108 Progress Note : Progress Note Seen and evaluated. UA and UCG ordered. Pelvic exam ordered. Further testing based on those results. Monitor patient. Zofran 4 mg by mouth and Toradol 60 mg IM given. 0815: Pelvic exam complete with wet prep, cultures and GC/Chlamydia swab sent. Monitor patient. 1020: Patient received hydrocodone 7.5 by mouth for continued pain. Pelvic ultrasound ordered. Wet prep was negative but exam was concerning both for cervicitis and possible bacterial vaginosis. No clue cells noted but I still think this is in the realm of possibility. Patient did receive Rocephin 250 mg IM as well as Zithromax 1 g by mouth. Overall she is doing better now. We will continue outpatient treatment with Flagyl and I will write for a few hydrocodone. Patient has appointment with Dr. Campbell tomorrow. She will continue her nitrofurantoin. Discharged home with return precautions. Patient verbalize understanding instructions and agreement with plan. Diagnostic Imaging Diagonstic Imaging: Ultrasound Plain Films/CT/US/NM/MRI: pelvis Comments [facility] [place], [place] NAME: JAMES HERNDON [facility] REC#: [id number] PT STATUS: REG ER : 1990 PHYSICIAN: LASHONDA GUTIERREZ MD ADMIT DATE: 04/06/20/ER Draft Date of Exam:04/06/20 US NON OB PELVIS COMP/TRANSVAG PROCEDURE: US Non-ob pelvis comp/trans. TECHNIQUE: Multiple Real-time grayscale images were obtained of the pelvis in various projections endovaginally. Transabdominal imaging was also performed. INDICATION: Right-sided pelvic pain. FINDINGS: There are no Doppler findings of adnexal torsion. The ovaries appear normal with scattered physiologic follicles. The myometrium is normal. No fibroid. The endometrium is 5 mm and normal in thickness as well as nonfocal. There is no pelvic ascites. IMPRESSION: Normal pelvic ultrasound. Dictated on workstation # [id number] Dict: 04/06/2056 Trans: 04/06/20 1001 ZEYAD [id number] Interpreted by: SHAHNAZ CHACON Electronically signed by: Diagonstic Imaging: Ultrasound Plain Films/CT/US/NM/MRI: pelvis Comments [facility] [place] [place] NAME: JAMES HERNDON [facility] REC#: [id number] PT STATUS: REG ER : 1990 PHYSICIAN: LASHONDA GUTIERREZ MD ADMIT DATE: 04/06/20/ER Draft Date of Exam:04/06/20 US NON OB PELVIS COMP/TRANSVAG PROCEDURE: US Non-ob pelvis comp/trans. TECHNIQUE: Multiple Real-time grayscale images were obtained of the pelvis in various projections endovaginally. Transabdominal imaging was also performed. INDICATION: Right-sided pelvic pain. FINDINGS: There are no Doppler findings of adnexal torsion. The ovaries appear normal with scattered physiologic follicles. The myometrium is normal. No fibroid. The endometrium is 5 mm and normal in thickness as well as nonfocal. There is no pelvic ascites. IMPRESSION: Normal pelvic ultrasound. Dictated on workstation # [id number] Dict: 04/06/2056 Trans: 04/06/20 1001 ZEYAD [id number] Interpreted by: SHAHNAZ CHACON Electronically signed by: Departure Impression Primary Impression: Cervicitis and endocervicitis Additional Impressions: Lower abdominal pain UTI (urinary tract infection) Qualified Codes: N30.01 - Acute cystitis with hematuria Disposition: HOME, SELF-CARE Condition: Improved Departure-Patient Inst. Decision time for Depature: 10:32 Referrals: ADRIEL VILLAGRAN MD (PCP/Family) Primary Care Physician Patient Instructions: Acute Abdomen (Belly Pain), Adult (DC), Screening for Sexually Transmitted Infections, Urinary Tract Infection, Adult (DC) Add. Discharge Instructions: All discharge instructions reviewed with patient and/or family. Voiced understanding. Follow-up with Dr. Campbell tomorrow. Take medications as directed. Return for worse pain, weakness, problems going to the bathroom, vomiting or other concerns as needed. You may take ibuprofen 600 mg every 8 hours as needed for pain. You may also take Tylenol/acetaminophen 1000 mg every 8 hours as needed for pain. Do not take the Tylenol acetaminophen if you are taking the prescribed pain medicine as they both have acetaminophen in them. Scripts Metronidazole (Metronidazole) 500 Mg Tablet 500 MG PO BID, #14 TAB 0 Refills Prov: LASHONDA GUTIERREZ MD 04/06/20 Work/School Note: Work Release Form Date Seen in the Emergency Department: April 06, 2020 Return to Work: April 08, 2020 Restrictions: No Restrictions Copy Copies To 1: PEPE CAMPBELL MD Copies To 2: ADRIEL VILLAGRAN MD, TIMOTHY D MD April 06, 2020 07:46
[2020-04-06] MEDS ORDERED: KETOROLAC 60 MG/2 ML VIAL IM STA (07:47)
[2020-04-06] MEDS ORDERED: ONDANSETRON 4 MG (ZOFRAN) ORAL DISSOLVE TAB SL STA (07:47)
[2020-04-06 07:57] LABS: BACTERIA,URINE LARGE /HPF; RBC,URINE TNTC /HPF; WBC,URINE 50-100 /HPF
[2020-04-06] MEDS ORDERED: AZITHROMYCIN 250 MG TAB (ZITHROMAX) PO STA (08:48)
[2020-04-06] MEDS ORDERED: LIDOCAINE 1% INJ 20 ML 20 ML VIAL INJ ONE (09:00)
[2020-04-06] MEDS ORDERED: cefTRIAXone 250 MG/ML vial (IM ONLY) IM ONE (09:00)
[2020-04-06] MEDS ORDERED: HYDROcodone/APAP 7.5 MG/325 MG (LORTAB, LORCET PLUS) TABLET PO STA (09:18)
--- NOTE | 2020-04-06 10:01 | Diagnostic Imaging Report ---
PROCEDURE: US Non-ob pelvis comp/trans. TECHNIQUE: Multiple Real-time grayscale images were obtained of the pelvis in various projections endovaginally. Transabdominal imaging was also performed. INDICATION: Right-sided pelvic pain. FINDINGS: There are no Doppler findings of adnexal torsion. The ovaries appear normal with scattered physiologic follicles. The myometrium is normal. No fibroid. The endometrium is 5 mm and normal in thickness as well as nonfocal. There is no pelvic ascites. IMPRESSION: Normal pelvic ultrasound. Dictated by: Dictated on workstation # [id number]
[2020-04-06] MEDS ORDERED: METR-145 PO (10:36)
[2020-04-06] MEDS ORDERED: HYDR-4342 PO (10:36)
[2020-04-06 10:43] VITALS: BP 138/93
== END 2020-04-06 10:43 | disposition home or self-care (01) ==
LOC: EDUNIT# 07:08 → ER 07:09
DX: N72 Inflammatory disease of cervix uteri (principal); N39.0 Urinary tract infection, site not specified; Z82.49 Family history of ischemic heart disease and other diseases of the circulatory system
CPT/HCPCS: 76830; 76856; 81000; 84703; 87070; 87077; 87088; 87205; 87210; 87491; 87591

== ENCOUNTER 2020-08-01 11:09 | Emergency (ER) | payer MEDICAID ==
[~2020-08-01] VITALS: Ht 172.7 cm; Wt 144.6 kg
[~2020-08-01 11:09] MED LIST changes: +HYDR-3817 PO; -OXYC-465 PO; +OXYC-556 PO
--- NOTE | 2020-08-01 14:16 | ED General ---
General Chief Complaint: Cough/Cold/Flu Symptoms Stated Complaint: FEVER 101 - COUGH Nursing Triage Note: pt amb to rm 10 with complaint of cough, fever, and headache. states daughter was exposed to covid positive on last week. Nursing Sepsis Screen: No Definite Risk Source of Information: Patient Exam Limitations: No Limitations History of Present Illness Date Seen by Provider: Aug 01, 2020 Time Seen by Provider: 14:12 Initial Comments To ER with reports of cough fever and headache. Daughter was exposed last week. She complains of a cough fever and headache. Symptoms began yesterday. 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 Timing/Duration: 1-2 Days Severity: Moderate Associated Systoms: Headaches, Shortness of Air Allergies and Home Medications Allergies Coded Allergies: No Known Drug Allergies (Unverified , 07/11/10) Home Medications Docusate Sodium 100 Mg Capsule, 100 MG PO BID Prescribed by: PEPE RAPP on 04/02/19 1642 Hydrocodone/Acetaminophen 1 Each Tablet, 1 EACH PO Q6H Prescribed by: LASHONDA GUTIERREZ on 04/06/20 1037 Ibuprofen 800 Mg Tablet, 800 MG PO Q6H PRN for PAIN Prescribed by: PEPE RAPP on 04/02/19 1642 Metronidazole 500 Mg Tablet, 500 MG PO BID Prescribed by: LASHONDA GUTIERREZ on 04/06/20 1036 Oxycodone HCl/Acetaminophen 1 Each Tablet, 1 TAB PO Q4H PRN for PAIN Prescribed by: PEPE RAPP on 04/02/19 1642 Vit W-Ca,Fe,FA(<1 mg) 1 Each Tablet, 1 EACH PO DAILY, (Reported) Patient Home Medication List Home Medication List Reviewed: Yes Review of Systems Review of Systems Constitutional: see HPI EENTM: see HPI Respiratory: see HPI, cough, short of breath Genitourinary: no symptoms reported Musculoskeletal: no symptoms reported Skin: no symptoms reported Psychiatric/Neurological: No Symptoms Reported, Headache Hematologic/Lymphatic: No Symptoms Reported Immunological/Allergic: no symptoms reported Past Esluejv-Oetxve-Srauor Hx Patient Social History Alcohol Use: Denies Use Recreational Drug Use: No Smoking Status: Former Smoker Type Used: Cigarettes Recent Foreign Travel: No Contact w/Someone Who Travel: No Recent Infectious Disease Expo: No Recent Hopitalizations: No Immunizations Up To Date Tetanus Booster (TDap): Unknown PED Vaccines UTD: No Date of Influenza Vaccine: Aug 26, 2012 Seasonal Allergies Seasonal Allergies: No Past Medical History Surgeries: Yes (LEFT SHOULDER X2, X 4, MASS REMOVED FROM LEFT SIDE OF JAW) Adenoidectomy, Appendectomy, Section, Orthopedic, Tonsillectomy Respiratory: No Cardiac: No Neurological: No Reproductive Disorders: No Female Reproductive Disorders: Denies Sexually Transmitted Disease: Yes (CHLAMYDIA 2009, Gonnerhea 2011, ) HIV/AIDS: No Gastrointestinal: No Musculoskeletal: Yes (LEFT SHOULDER PROBLEMS) Arthritis Endocrine: No HEENT: No Cancer: No Psychosocial: No Integumentary: No Blood Disorders: No Adverse Reaction/Blood Tranf: No Family Medical History Diabetes mellitus 19 FATHER 19 MOTHER Hypertension 19 MOTHER Physical Exam Vital Signs Vital Signs - First Documented 08/01/20 11:29 Temp 37.1 Pulse 96 Resp 20 B/P (MAP) 140/100 (113) Pulse Ox 98 O2 Delivery Room Air Capillary Refill : Less Than 3 Seconds Height, Weight, BMI Height: 5'8.00" Weight: 347lbs. 2.0oz. [id number]; 48.00 BMI Method:Stated General Appearance: No Apparent Distress, WD/WN, Obese, Other (no respiratory distress or tachypnea oxygen saturation 99% room air. Lungs are clear with good air movement) Eyes: Bilateral Eye Normal Inspection, Bilateral Eye PERRL, Bilateral Eye EOMI Neck: Full Range of Motion, Normal Inspection Respiratory: Lungs Clear, Normal Breath Sounds, No Accessory Muscle Use, No Respiratory Distress Cardiovascular: Regular Rate, Rhythm, Normal Peripheral Pulses Gastrointestinal: Normal Bowel Sounds, Non Tender, Soft Extremity: Normal Capillary Refill, Normal Inspection Neurologic/Psychiatric: Alert, Oriented x3 Skin: Normal Color, Warm/Dry Progress/Results/Core Measures Suspected Sepsis Recent Fever Within 48 Hours: No Infection Criteria Present: None New/Unexplained Altered Menta: No Sepsis Screen: No Definite Risk SIRS Temperature: Pulse: 96 Respiratory Rate: 20 Blood Pressure 140 /100 Mean: 113 Results/Orders Vital Signs/I&O 08/01/20 11:29 Temp 37.1 Pulse 96 Resp 20 B/P (MAP) 140/100 (113) Pulse Ox 98 O2 Delivery Room Air Capillary Refill : Less Than 3 Seconds Blood Pressure Mean: 113 Departure Impression Primary Impression: Viral syndrome Disposition: 01 HOME, SELF-CARE Condition: Stable Departure-Patient Inst. Decision time for Depature: 14:14 Referrals: ADRIEL VILLAGRAN MD (PCP/Family) Primary Care Physician Patient Instructions: Viral Syndrome (DC) Add. Discharge Instructions: 1. Return to ER for any concerns 2. Follow-up with your doctor next week 3. Stay home and quarantine away from family and friends and others until you have been fever free for 72 hours and have a negative Covid swab. If you're covert swab comes back positive then a [facility] or [facility] Department will be in touch with you to guide you further. To call for your results for work, call [phone]. All discharge instructions reviewed with patient and/or family. Voiced understanding. Work/School Note: Work Release Form Date Seen in the Emergency Department: Aug 01, 2020 Return to Work: Aug 01, 2020 Restrictions: Need Release from Doctor LEEANN CHAVEZ APRN Aug 01, 2020 14:16
[2020-08-01 14:24] VITALS: BP 135/90
== END 2020-08-01 14:24 | disposition home or self-care (01) ==
LOC: ER 11:09 → EDUNIT# 11:09 → ER 14:24
DX: B34.9 Viral infection, unspecified (principal); Z20.828 Contact with and (suspected) exposure to other viral communicable diseases; Z87.891 Personal history of nicotine dependence; Z82.49 Family history of ischemic heart disease and other diseases of the circulatory system
CPT/HCPCS: 99282; U0002; 87635

== ENCOUNTER 2021-05-10 07:56 | Emergency (ER) | payer MEDICAID ==
[~2021-05-10] VITALS: Ht 172 cm; Wt 136.0 kg
[~2021-05-10 07:56] MED LIST changes: -OXYC-471 PO; +OXYC1TAB11 PO
[2021-05-10] MEDS ORDERED: NITROGLYCERIN 0.4 MG SL TABS BTL 25'S SL STA (08:17)
--- NOTE | 2021-05-10 08:22 | ED Chest Pain ---
General Chief Complaint: Chest Wall Stated Complaint: CP Nursing Triage Note: ARRIVED VIA AMB TO ROOM 06 WITHOUT DIFFICULTY. COMPLAINS OF MID CHEST PAIN STARTING 1 HR DECKHAND WHILE AT WORK. PAIN IS REPRODUCABLE. Nursing Sepsis Screen: No Definite Risk Source: patient Exam Limitations: no limitations History of Present Illness Date Seen by Provider: May 10, 2021 Time Seen by Provider: 08:10 Initial Comments Patient is a 31-year-old female who presents to the emergency room by private vehicle today with a chief complaint of mid substernal chest pain. 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 She describes it as "a tightness". She states it made her short of breath and nauseated and she felt "cold and clammy". Patient states the pain does not radiate. She states she has never had pain like this before. She has no significant past medical history. Patient states that she is on the Depo shot and does not believe she could be her last Depo shot was in mid January which means she is a little bit late on her repeat Depo. Patient denies any recent fevers, chills, productive cough. She was not overly exerting herself at the onset of pain. She does not know if she has any family history of coronary artery disease but does not believe that she does. She has never been diagnosed with hypertension. She does not smoke. All other review of systems reviewed and negative except as stated above. Timing/Duration: 1 hour Severity/Quality: moderate, tightness ("8-1/2") Location: substernal Radiation: no radiation Activities at Onset: activity Prior CP/Workup: no prior chest pain, no prior cardiac workup ASA po DECKHAND: No NTG SL DECKHAND: No Associated Symptoms: nausea/vomiting (Nausea without vomiting) Allergies and Home Medications Allergies Coded Allergies: No Known Drug Allergies (Unverified , 07/11/10) Home Medications Docusate Sodium 100 Mg Capsule, 100 MG PO BID Prescribed by: PEPE RAPP on 04/02/19 1642 Hydrocodone/Acetaminophen 1 Each Tablet, 1 EACH PO Q6H Prescribed by: LASHONDA GUTIERREZ on 04/06/20 1037 Ibuprofen 800 Mg Tablet, 800 MG PO Q6H PRN for PAIN Prescribed by: PEPE RAPP on 04/02/19 1642 Metronidazole 500 Mg Tablet, 500 MG PO BID Prescribed by: LASHONDA GUTIERREZ on 04/06/20 1036 Oxycodone HCl/Acetaminophen 1 Each Tablet, 1 TAB PO Q4H PRN for PAIN Prescribed by: PEPE RAPP on 04/02/19 1642 Vit W-Ca,Fe,FA(<1 mg) 1 Each Tablet, 1 EACH PO DAILY, (Reported) Patient Home Medication List Home Medication List Reviewed: Yes Review of Systems Review of Systems Constitutional: see HPI EENTM: No Symptoms Reported Respiratory: No Symptoms Reported Cardiovascular: Chest Pain Gastrointestinal: Nausea Genitourinary: No Symptoms Reported Musculoskeletal: no symptoms reported Skin: no symptoms reported Psychiatric/Neurological: No Symptoms Reported All Other Systems Reviewed Negative Unless Noted: Yes Past Mqtkkac-Chnwme-Qtrvbl Hx Patient Social History Type Used: Cigarettes Recent Infectious Disease Expo: No Recent Hopitalizations: No Immunizations Up To Date Tetanus Booster (TDap): Unknown PED Vaccines UTD: No Date of Influenza Vaccine: Aug 26, 2012 Seasonal Allergies Seasonal Allergies: No Past Medical History Surgeries: Yes (LEFT SHOULDER X2, X 4, MASS REMOVED FROM LEFT SIDE OF JAW) Adenoidectomy, Appendectomy, Section, Orthopedic, Tonsillectomy Respiratory: No Cardiac: No Neurological: No Reproductive Disorders: No Female Reproductive Disorders: Denies 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 Sexually Transmitted Disease: Yes (CHLAMYDIA 2009, Gonnerhea 2011, ) HIV/AIDS: No Gastrointestinal: No Musculoskeletal: Yes (LEFT SHOULDER PROBLEMS) Arthritis Endocrine: No HEENT: No Cancer: No Psychosocial: No Integumentary: No Blood Disorders: No Adverse Reaction/Blood Tranf: No Family Medical History Diabetes mellitus 19 FATHER 19 MOTHER Hypertension 19 MOTHER Physical Exam Vital Signs Vital Signs - First Documented 05/10/21 07:56 Temp 36.0 Pulse 91 Resp 16 B/P (MAP) 180/115 (136) Pulse Ox 100 O2 Delivery Room Air Capillary Refill : Less Than 3 Seconds Height, Weight, BMI Height: 5'8.00" Weight: 347lbs. 2.0oz. 157.953783ph; 45.00 BMI Method:Stated General Appearance: No Apparent Distress, WD/WN Neck: Normal Inspection Respiratory: Lungs Clear, Normal Breath Sounds, No Accessory Muscle Use, No Respiratory Distress, Other (Discomfort to palpation of the mid chest wall) Cardiovascular: Regular Rate, Rhythm Gastrointestinal: Non Tender, Soft Extremity: Normal Inspection, Normal Range of Motion, Non Tender, No Calf Tenderness Neurologic/Psychiatric: Alert, Oriented x3, No Motor/Sensory Deficits, Normal Mood/Affect Skin: Normal Color, Warm/Dry Progress/Results/Core Measures Results/Orders Lab Results Laboratory Tests Test 05/10/21 08:24 05/10/21 11:00 Range/Units White Blood Count 8.3 4.3-11.0 10^3/uL Red Blood Count 4.88 3.80-5.11 10^6/uL Hemoglobin 13.6 11.5-16.0 g/dL Hematocrit 41 35-52 % Mean Corpuscular Volume 83 80-99 fL Mean Corpuscular Hemoglobin 28 25-34 pg Mean Corpuscular Hemoglobin Concent 33 32-36 g/dL Red Cell Distribution Width 13.3 10.0-14.5 % Platelet Count 333 130-400 10^3/uL Mean Platelet Volume 10.2 9.0-12.2 fL Immature Granulocyte % (Auto) 0 % Neutrophils (%) (Auto) 61 42-75 % Lymphocytes (%) (Auto) 29 12-44 % Monocytes (%) (Auto) 8 0-12 % Eosinophils (%) (Auto) 2 0-10 % Basophils (%) (Auto) 1 0-10 % Neutrophils # (Auto) 5.0 1.8-7.8 10^3/uL Lymphocytes # (Auto) 2.4 1.0-4.0 10^3/uL Monocytes # (Auto) 0.6 0.0-1.0 10^3/uL Eosinophils # (Auto) 0.2 0.0-0.3 10^3/uL Basophils # (Auto) 0.1 0.0-0.1 10^3/uL Immature Granulocyte # (Auto) 0.0 0.0-0.1 10^3/uL Prothrombin Time 14.3 12.2-14.7 SEC INR Comment 1.1 0.8-1.4 Activated Partial Thromboplast Time 28 24-35 SEC Sodium Level 139 135-145 MMOL/L Potassium Level 3.6 3.6-5.0 MMOL/L Chloride Level 106 98-107 MMOL/L Carbon Dioxide Level 22 21-32 MMOL/L Anion Gap 11 5-14 MMOL/L Blood Urea Nitrogen 13 7-18 MG/DL Creatinine 0.80 0.60-1.30 MG/DL Estimat Glomerular Filtration Rate > 60 BUN/Creatinine Ratio 16 Glucose Level 100 70-105 MG/DL Calcium Level 9.7 8.5-10.1 MG/DL Total Creatine Kinase 66 29-168 U/L Creatine Kinase MB 0.7 <6.6 NG/ML Troponin I 0.030 H 0.031 H <0.028 NG/ML My Orders Orders - YUDI GONZALEZ MD Ed Iv/Invasive Line Start (05/10/21 08:17) Cbc With Automated Diff (05/10/21 08:17) Basic Metabolic Panel (05/10/21 08:17) Creatine Kinase (05/10/21 08:17) Creatine Kinase Mb (05/10/21 08:17) Troponin I (05/10/21 08:17) Chest 1 View, Ap/Pa Only (05/10/21 08:17) Ekg Tracing (05/10/21 08:17) Aspirin Chewable Tablet (Baby Aspirin Ch (05/10/21 09:00) Nitroglycerin 0.4 Mg Btl 25's (Nitrostat (05/10/21 08:17) Protime With Inr (05/10/21 08:17) Partial Thromboplastin Time (05/10/21 08:17) Ekg Tracing (05/10/21 09:09) Troponin I (05/10/21 10:45) Vital Signs/I&O 05/10/21 07:56 Temp 36.0 Pulse 91 Resp 16 B/P (MAP) 180/115 (136) Pulse Ox 100 O2 Delivery Room Air Blood Pressure Mean: 136 Progress Progress Note : Time: 09:09 Progress Note Case discussed with Dr. Jauregui who states he will be down to evaluate the patient and review the EKG. Patient's pain currently is a "5". [id number] Made a second phone call to Dr. Jauregui who states that he will be along shortly to evaluate the patient [id number] Patient seen and examined by Dr. Jauregui, cardiology. He obtained a bedside echocardiogram to evaluate cardiac function. He called and stated that the echo looks okay and from his standpoint the patient was stable for discharge. He wou ld like to follow-up with her in 2 weeks. We will give her his contact information at this time. She is comfortable right now, pain-free. I have given her good return precautions which include to come back at any point if her chest pain recurs especially associated with shortness of breath nausea and sweating. She verbalizes understanding. I have counseled her to decrease her salt intake. She is agreeable. We will give her the day off tomorrow. All questions are sought and answered. She is stable for discharge. Initial ECG Impression Date: May 10, 2021 Initial ECG Impression Time: 08:10 Initial ECG Rate: 84 Initial ECG Rhythm: Normal Sinus Initial ECG Intervals [place] 135 QRS 95 QTc 425 Initial ECG Impression: Nonspecific Changes Comment Patient has [address] elevation in leads I and aVL with nonspecific ST-T wave changes in the inferior leads, three and aVF Diagnostic Imaging Diagonstic Imaging: Xray Plain Films/CT/US/NM/MRI: chest Comments [facility], [facility]. [place], [place] NAME: JAMES [facility]ON [facility] REC#: [id number] PT STATUS: REG ER : 1990 PHYSICIAN: YUDI GONZALEZ MD ADMIT DATE: 05/10/21/ER Draft Date of Exam:05/10/21 CHEST 1 VIEW, AP/PA ONLY INDICATION: Chest pain Frontal chest obtained at 0828 a.m. and compared with 11/10/2017. Heart and mediastinal silhouette are normal in appearance. The lungs are clear. There is no pneumothorax or pleural fluid. IMPRESSION: Negative chest. Dictated on workstation # [id number] Dict: 05/10/21 0839 Trans: 05/10/21 0842 VIRAL [id number] Interpreted by: CATRACHO INTERIANO MD Electronically signed by: Departure Impression Primary Impression: Chest pain Qualified Codes: R07.9 - Chest pain, unspecified Additional Impression: Troponin level elevated Disposition: 01 HOME, SELF-CARE Condition: Stable Departure-Patient Inst. Decision time for Depature: 13:59 Referrals: NO,LOCAL PHYSICIAN (PCP) Primary Care Physician ANSLEY COSTELLO APRN (Family) Primary Care Physician MANISH JAUREGUI JR, MD Patient Instructions: Chest Pain Add. Discharge Instructions: Start taking a baby aspirin daily. Please call Dr. Jauregui office today for a follow-up appointment in 2 weeks. Come back to the emergency room if you have a recurrence of chest pain especially associated with nausea, sweating, shortness of breath or any other emergent concerning symptoms. You will need to follow-up with a primary care doctor regarding your elevated blood pressure today. Watch your salt intake and this will help to hopefully keep your blood pressure lowered. Avoid soda beverages unless they are "zero" drinks, such as coke zero (these have no salt). Work/School Note: Work Release Form Date Seen in the Emergency Department: May 10, 2021 Return to Work: May 12, 2021 YUDI GONZALEZ MD May 10, 2021 08:22
[2021-05-10 08:32] LABS: BASOPHILS # (AUTO) 0.1 10^3/uL (0.0-0.1); BASOPHILS % (AUTO) 1 % (0-10); EOSINOPHILS # (AUTO) 0.2 10^3/uL (0.0-0.3); EOSINOPHILS % (AUTO) 2 % (0-10); HEMATOCRIT 41 % (35-52); HEMOGLOBIN 13.6 g/dL (11.5-16.0); LYMPHOCYTES # (AUTO) 2.4 10^3/uL (1.0-4.0); LYMPHOCYTES % (AUTO) 29 % (12-44); MEAN CORPUSCULAR HEMOGLOBIN 28 pg (25-34); MEAN CORPUSCULAR HGB CONC 33 g/dL (32-36); MEAN CORPUSCULAR VOLUME 83 fL (80-99); MEAN PLATELET VOLUME 10.2 fL (9.0-12.2); MONOCYTES # (AUTO) 0.6 10^3/uL (0.0-1.0); MONOCYTES % (AUTO) 8 % (0-12); NEUTROPHILS % (AUTO) 61 % (42-75); PLATELET COUNT 333 10^3/uL (130-400); WHITE BLOOD COUNT 8.3 10^3/uL (4.3-11.0)
--- NOTE | 2021-05-10 08:42 | Diagnostic Imaging Report ---
INDICATION: Chest pain Frontal chest obtained at 0828 a.m. and compared with 11/10/2017. Heart and mediastinal silhouette are normal in appearance. The lungs are clear. There is no pneumothorax or pleural fluid. IMPRESSION: Negative chest. Dictated by: Dictated on workstation # [id number]
[2021-05-10 08:44] LABS: CHLORIDE 106 MMOL/L (98-107); POTASSIUM 3.6 MMOL/L (3.6-5.0); SODIUM 139 MMOL/L (135-145)
[2021-05-10 08:45] LABS: CALCIUM 9.7 MG/DL (8.5-10.1); INR 1.1 (0.8-1.4); PROTHROMBIN TIME PATIENT 14.3 SEC (12.2-14.7)
[2021-05-10 08:46] LABS: GLUCOSE 100 MG/DL (70-105)
[2021-05-10 08:47] LABS: CARBON DIOXIDE 22 MMOL/L (21-32)
[2021-05-10 08:50] LABS: GFR ESTIMATED > 60
[2021-05-10 08:51] LABS: BUN/CREATININE RATIO 16
[2021-05-10 08:52] LABS: CREATINE KINASE 66 U/L (29-168)
[2021-05-10 08:58] LABS: CREATINE KINASE MB 0.7 NG/ML (<6.6)
[2021-05-10] MEDS ORDERED: ASPIRIN 81 MG CHEW (CHILDREN'S ASA) PO SCH (09:00)
--- NOTE | 2021-05-10 13:32 | Consultation-Cardiology ---
HPI-Cardiology Cardiology Consultation: Date of Consultation 05/10/21 Date of Admission Attending Physician Admitting Physician Roxanne,Local Physician Consulting Physician MANISH JUAREZ JR, MD HPI: Time Seen by a Provider: 11:30 Chief Complaint: Reason for consultation: Chest pain. I had the pleasure of seeing Maricel in the emergency room today. She has a history of hypertension during that improved during delivery and morbid obesity. She was in her usual state of health until this morning when she was at work and developed substernal chest discomfort. She describes this as a sharp pain in the center of her chest. She denies radiation. This seemed to take her breath away. Nothing seemed to make this better or worse. This was mild to moderate in severity. She did also have some nausea but denies any vomiting. 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 In the emergency room, she was given 2 sublingual nitroglycerin and her chest discomfort resolved. She denies any recurrence. She denies any previous history of chest discomfort. She denies any history of gastroesophageal reflux disease or heartburn. She does not take any medications. She denies dyspnea on exertion, paroxysmal nocturnal dyspnea, orthopnea, palpitations, lightheadedness, syncope, or lower extremity edema. During her evaluation in the emergency room, she underwent a troponin level that was shown to be borderline elevated. Therefore, a cardiology consultation was requested. When I saw the patient, she was pain-free. She has not been taking any medications. She does not smoke cigarettes and denies use of cocaine or methamphetamine. 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 Review of Systems-Cardiology Review of Systems Other comments Review of 10 organ systems is as per the history of present illness, otherwise negative All Other Systems Reviewed Negative Unless Noted: Yes TWQ-Xmoacy-Ediwbh Hx Patient Social History Employed/Student: employed Immunizations Up To Date Tetanus Booster (TDap): Unknown Date of Influenza Vaccine: Aug 26, 2012 Past Medical History PMH As described under Assessment. Family Medical History Family History: Diabetes mellitus 19 FATHER 19 MOTHER Hypertension 19 MOTHER Allergies and Home Medications Allergies Coded Allergies: No Known Drug Allergies (Unverified , 07/11/10) Home Medications Docusate Sodium 100 Mg Capsule, 100 MG PO BID Prescribed by: PEPE RAPP on 04/02/19 1642 Hydrocodone/Acetaminophen 1 Each Tablet, 1 EACH PO Q6H Prescribed by: LASHONDA GUTIERREZ on 04/06/20 1037 Ibuprofen 800 Mg Tablet, 800 MG PO Q6H PRN for PAIN Prescribed by: PEPE RAPP on 04/02/19 1642 Metronidazole 500 Mg Tablet, 500 MG PO BID Prescribed by: LASHONDA GUTIERREZ on 04/06/20 1036 Oxycodone HCl/Acetaminophen 1 Each Tablet, 1 TAB PO Q4H PRN for PAIN Prescribed by: PEPE RAPP on 04/02/19 1642 Vit W-Ca,Fe,FA(<1 mg) 1 Each Tablet, 1 EACH PO DAILY, (Reported) Patient Home Medication List Home Medication List Reviewed: Yes Physical Exam-Cardiology Physical Exam Vital Signs/I&O 05/10/21 07:56 Temp 36.0 Pulse 91 Resp 16 B/P (MAP) 180/115 (136) Pulse Ox 100 O2 Delivery Room Air Capillary Refill : Less Than 3 Seconds Constitutional: appears stated age, AAO x 3, well-developed, well-nourished, other (She is morbidly obese.) HEENT: other (She is normocephalic and atraumatic. Extraocular movements are intact. Sclera are clear. There are no xanthelasma.) Neck: non-tender, full range of motion, supple, normal inspection, carotid pulses are 2 + bilaterally, with good upstrokes Respiratory: other (There is good respiratory effort with symmetrical expansion bilaterally. The lungs are clear to auscultation bilaterally.) Cardiovascular: other (Regular rate and rhythm with normal S1 and S2. No murmurs, rubs or gallops appreciated.) Gastrointestinal: other (The abdomen is obese. There are normal bowel sounds. The abdomen is soft, nontender and nondistended.) Rectal: deferred Extremities: normal range of motion, non-tender, normal inspection, no lower extremity edema bilateral Neurologic/Psychiatric: other (The patient is alert and oriented x3. Cranial nerves III through XII are grossly intact. The patient has good motor tone and strength in the upper and lower extremities bilaterally.) Skin: normal color, warm/dry Data Review Labs Laboratory Tests 05/10/21 08:24: White Blood Count 8.3, Red Blood Count 4.88, Hemoglobin 13.6, Hematocrit 41, Mean Corpuscular Volume 83, Mean Corpuscular Hemoglobin 28, Mean Corpuscular Hemoglobin Concent 33, Red Cell Distribution Width 13.3, Platelet Count 333, Mean Platelet Volume 10.2, Immature Granulocyte % (Auto) 0, Neutrophils (%) (Auto) 61, Lymphocytes (%) (Auto) 29, Monocytes (%) (Auto) 8, Eosinophils (%) (Auto) 2, Basophils (%) (Auto) 1, Neutrophils # (Auto) 5.0, Lymphocytes # (Auto) 2.4, Monocytes # (Auto) 0.6, Eosinophils # (Auto) 0.2, Basophils # (Auto) 0.1, Immature Granulocyte # (Auto) 0.0, Prothrombin Time 14.3, INR Comment 1.1, Activated Partial Thromboplast Time 28, Sodium Level 139, Potassium Level 3.6, Chloride Level 106, Carbon Dioxide Level 22, Anion Gap 11, Blood Urea Nitrogen 13, Creatinine 0.80, Estimat Glomerular Filtration Rate > 60, BUN/Creatinine Ratio 16, Glucose Level 100, Calcium Level 9.7, Total Creatine Kinase 66, Crea bry Kinase MB 0.7, Troponin I 0.030H 05/10/21 11:00: Troponin I 0.031H Radiology Echocardiogram: The left ventricle was borderline dilated with normal wall thickness. There was normal regional and global left ventricular systolic function with an estimated ejection fraction of 55-65%. There was normal left ventricular diastolic function. The estimated pulmonary artery pressure was 23 mmHg. ECG Impression ECG Initial ECG Impression Date: May 10, 2021 Comment Sinus rhythm with nonspecific T waves in the inferolateral leads. A/P-Cardiology Assessment/Admission Diagnosis Chest pain. Exact etiology unclear. She has a borderline abnormal ECG with nonspecific T wave changes. Her troponin levels are borderline elevated. Her echocardiogram did not show any structural heart disease or pericardial effusion to explain the chest discomfort. I suspect this is noncardiac chest discomfort, possibly related to a musculoskeletal disorder or perhaps some pulmonary condition related to her new job. From a cardiac standpoint, the patient can be discharged home from the emergency room. She should follow-up with her primary care provider within the next couple of weeks and I would like to see her in the cardiology office in 2-4 weeks just to be sure that her chest discomfort has resolved. Abnormal troponin level. She had 2 borderline abnormal troponin levels. Her renal function is normal. She has no risk factors for deep venous thrombosis other than her obesity. I cannot entirely explain this abnormality but since this is borderline elevated, this could just be her baseline. No additional cardiac testing is indicated for this minor, borderline abnormality at this time. Morbid obesity. She needs to work on lifestyle modification with exercise, diet and weight loss. This raises the possibility that she could have underlying sleep apnea which certainly could cause chest pain. She needs to follow-up with her primary care provider in this regard. Thank you for the courtesy of this consultation. As above, I do not see any reason why the patient cannot be discharged home from the emergency room at this time. Plan Clinical Quality Measures AMI/AHF: ASA po Prior to arrival: MANISH Douglas JR, MD May 10, 2021 13:31
[2021-05-10 14:10] VITALS: BP 144/97
[2021-05-11] MEDS ORDERED: ACHD5005 PO (18:03)
== END 2021-05-10 14:10 | disposition home or self-care (01) ==
LOC: EDUNIT# 07:56 → ER 07:57
DX: R07.9 Chest pain, unspecified (principal); R77.8 Other specified abnormalities of plasma proteins
CPT/HCPCS: 36415; 71045; 80048; 82550; 82553; 84484; 85025; 85610; 85730; 93005; 93306

== ENCOUNTER 2021-05-11 15:13 | Emergency (ER) | payer MEDICAID ==
[~2021-05-11] VITALS: Ht 172 cm; Wt 136.0 kg
[2021-05-11] MEDS ORDERED: FAMOTIDINE 20MG/2ML IV (PEPCID) IV STA (15:56)
[2021-05-11] MEDS ORDERED: ASPIRIN 81 MG CHEW (CHILDREN'S ASA) PO ONE (16:00)
[2021-05-11 16:02] LABS: BASOPHILS # (AUTO) 0.1 10^3/uL (0.0-0.1); BASOPHILS % (AUTO) 1 % (0-10); EOSINOPHILS # (AUTO) 0.2 10^3/uL (0.0-0.3); EOSINOPHILS % (AUTO) 2 % (0-10); HEMATOCRIT 42 % (35-52); HEMOGLOBIN 13.7 g/dL (11.5-16.0); LYMPHOCYTES # (AUTO) 2.8 10^3/uL (1.0-4.0); LYMPHOCYTES % (AUTO) 30 % (12-44); MEAN CORPUSCULAR HEMOGLOBIN 28 pg (25-34); MEAN CORPUSCULAR HGB CONC 33 g/dL (32-36); MEAN CORPUSCULAR VOLUME 85 fL (80-99); MEAN PLATELET VOLUME 10.3 fL (9.0-12.2); MONOCYTES # (AUTO) 0.8 10^3/uL (0.0-1.0); MONOCYTES % (AUTO) 8 % (0-12); NEUTROPHILS # (AUTO) 5.5 10^3/uL (1.8-7.8); NEUTROPHILS % (AUTO) 59 % (42-75); PLATELET COUNT 380 10^3/uL (130-400); WHITE BLOOD COUNT 9.3 10^3/uL (4.3-11.0)
[2021-05-11 16:07] LABS: ALBUMIN 3.9 GM/DL (3.2-4.5)
[2021-05-11 16:08] LABS: CHLORIDE 107 MMOL/L (98-107); POTASSIUM 3.9 MMOL/L (3.6-5.0); SODIUM 141 MMOL/L (135-145)
[2021-05-11 16:09] LABS: CALCIUM 9.6 MG/DL (8.5-10.1)
[2021-05-11 16:10] LABS: GLUCOSE 90 MG/DL (70-105); TOTAL PROTEIN 7.3 GM/DL (6.4-8.2)
[2021-05-11 16:11] LABS: CARBON DIOXIDE 22 MMOL/L (21-32)
[2021-05-11 16:12] LABS: BILIRUBIN,TOTAL 0.4 MG/DL (0.1-1.0)
[2021-05-11 16:13] LABS: ALKALINE PHOSPHATASE 76 U/L (40-136); CREATININE SERUM 0.75 MG/DL (0.60-1.30); GFR ESTIMATED > 60
[2021-05-11 16:14] LABS: PROTHROMBIN TIME PATIENT 13.7 SEC (12.2-14.7)
[2021-05-11 16:15] LABS: BUN/CREATININE RATIO 17
[2021-05-11 16:16] LABS: ALANINE AMINOTRANSFERASE 25 U/L (0-55)
[2021-05-11 16:17] LABS: MAGNESIUM 2.2 MG/DL (1.6-2.4)
--- NOTE | 2021-05-11 16:20 | Diagnostic Imaging Report ---
INDICATION: Chest pain. TECHNIQUE/COMPARISON: A frontal chest was obtained at 4:14 PM and compared to 05/10/2021. FINDINGS: The heart is borderline in size. There is mild central vascular prominence. There is no focal infiltrate, pneumothorax, or pleural fluid. IMPRESSION: Borderline heart size with mild central vascular prominence. No focal infiltrate, edema, or pleural fluid. Dictated by: Dictated on workstation # [id number]
--- NOTE | 2021-05-11 16:26 | ED Chest Pain ---
General Chief Complaint: Chest Pain Stated Complaint: LIGHTHEADED/DIZZY/CHEST TIGHTNESS Source: patient Exam Limitations: no limitations History of Present Illness Date Seen by Provider: May 11, 2021 Time Seen by Provider: 15:43 Initial Comments Here with report of central chest pain that she describes as tightness and sharp. Does not find any exacerbating or relieving factors. This has been going on for a while today, least a few hours. Had similar episodes yesterday. Was seen here then and had cardiology evaluation including echocardiogram. She was seen by her primary care doctor today and started on metoprolol for rapid heart rate and for hypertension. She is not sure of the cause of the pain. She does not smoke. Timing/Duration: intermittent, 1-2 days Severity/Quality: moderate, pressure, sharp, tightness Location: central Radiation: no radiation Activities at Onset: none Prior CP/Workup: echocardiography ASA po JOGGER OPERATOR: No NTG SL JOGGER OPERATOR: No Associated Symptoms: No abdominal pain, No back pain, No diaphoresis, No f ever/chills, No nausea/vomiting, No shortness of breath, No weakness Allergies and Home Medications Allergies Coded Allergies: No Known Drug Allergies (Unverified , 07/11/10) Home Medications Docusate Sodium 100 Mg Capsule, 100 MG PO BID Prescribed by: PEPE RAPP on 04/02/19 1642 Hydrocodone/Acetaminophen 1 Each Tablet, 1 EACH PO Q6H Prescribed by: LASHONDA GUTIERREZ on 04/06/20 1037 Ibuprofen 800 Mg Tablet, 800 MG PO Q6H PRN for PAIN Prescribed by: PEPE RAPP on 04/02/19 1642 Metronidazole 500 Mg Tablet, 500 MG PO BID Prescribed by: LASHONDA GUTIERREZ on 04/06/20 1036 Oxycodone HCl/Acetaminophen 1 Each Tablet, 1 TAB PO Q4H PRN for PAIN Prescribed by: PEPE RAPP on 04/02/19 1642 Vit W-Ca,Fe,FA(<1 mg) 1 Each Tablet, 1 EACH PO DAILY, (Reported) Patient Home Medication List Home Medication List Reviewed: Yes Review of Systems Review of Systems Constitutional: see HPI EENTM: No Symptoms Reported Respiratory: Denies Cough, Denies Shortness of Air Cardiovascular: Chest Pain; Denies Edema Gastrointestinal: Denies Nausea, Denies Vomiting Genitourinary: No Symptoms Reported Musculoskeletal: joint pain, muscle pain Skin: no symptoms reported All Other Systems Reviewed Negative Unless Noted: Yes Past Asduwnx-Adoeml-Jevcns Hx Past Med/Social Hx: Reviewed Nursing Past Med/Soc Hx Patient Social History Alcohol Use: Rarely Uses Type Used: Cigarettes Recent Hopitalizations: No Immunizations Up To Date Tetanus Booster (TDap): Unknown PED Vaccines UTD: No Date of Influenza Vaccine: Aug 26, 2012 Seasonal Allergies Seasonal Allergies: No Past Medical History Surgeries: Yes (LEFT SHOULDER X2, X 4, MASS REMOVED FROM LEFT SIDE OF JAW) Adenoidectomy, Appendectomy, Section, Orthopedic, Tonsillectomy Respiratory: No Cardiac: No Neurological: No Reproductive Disorders: No Female Reproductive Disorders: 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 Sexually Transmitted Disease: Yes (CHLAMYDIA 2009, Gonnerhea 2011, ) HIV/AIDS: No Genitourinary: No Gastrointestinal: No Musculoskeletal: Yes (LEFT SHOULDER PROBLEMS) Arthritis Endocrine: No HEENT: No Cancer: No Psychosocial: No Integumentary: No Blood Disorders: No Adverse Reaction/Blood Tranf: No Family Medical History Reviewed Nursing Family Hx Diabetes mellitus 19 FATHER 19 MOTHER Hypertension 19 MOTHER Physical Exam Vital Signs Vital Signs - First Documented 05/11/21 15:25 Temp 37.0 Pulse 73 Resp 20 B/P (MAP) 142/99 (113) Pulse Ox 98 O2 Delivery Room Air Capillary Refill : Less Than 3 Seconds Height, Weight, BMI Height: 5'8.00" Weight: 347lbs. 2.0oz. [id number]; 45.00 BMI Method:Stated General Appearance: No Apparent Distress, WD/WN HEENT: PERRL/EOMI, Pharynx Normal Neck: Non Tender, Supple Respiratory: Lungs Clear, Normal Breath Sounds Cardiovascular: Regular Rate, Rhythm, No Murmur Gastrointestinal: Non Tender, Soft Extremity: Normal Range of Motion, Non Tender Neurologic/Psychiatric: Alert, Oriented x3 Skin: Normal Color, Warm/Dry Progress/Results/Core Measures Results/Orders Lab Results Laboratory Tests Test 05/11/21 15:35 05/11/21 15:58 Range/Units White Blood Count 9.3 4.3-11.0 10^3/uL Red Blood Count 4.90 3.80-5.11 10^6/uL Hemoglobin 13.7 11.5-16.0 g/dL Hematocrit 42 35-52 % Mean Corpuscular Volume 85 80-99 fL Mean Corpuscular Hemoglobin 28 25-34 pg Mean Corpuscular Hemoglobin Concent 33 32-36 g/dL Red Cell Distribution Width 13.2 10.0-14.5 % Platelet Count 380 130-400 10^3/uL Mean Platelet Volume 10.3 9.0-12.2 fL Immature Granulocyte % (Auto) 0 % Neutrophils (%) (Auto) 59 42-75 % Lymphocytes (%) (Auto) 30 12-44 % Monocytes (%) (Auto) 8 0-12 % Eosinophils (%) (Auto) 2 0-10 % Basophils (%) (Auto) 1 0-10 % Neutrophils # (Auto) 5.5 1.8-7.8 10^3/uL Lymphocytes # (Auto) 2.8 1.0-4.0 10^3/uL Monocytes # (Auto) 0.8 0.0-1.0 10^3/uL Eosinophils # (Auto) 0.2 0.0-0.3 10^3/uL Basophils # (Auto) 0.1 0.0-0.1 10^3/uL Immature Granulocyte # (Auto) 0.0 0.0-0.1 10^3/uL Sodium Level 141 135-145 MMOL/L Potassium Level 3.9 3.6-5.0 MMOL/L Chloride Level 107 98-107 MMOL/L Carbon Dioxide Level 22 21-32 MMOL/L Anion Gap 12 5-14 MMOL/L Blood Urea Nitrogen 13 7-18 MG/DL Creatinine 0.75 0.60-1.30 MG/DL Estimat Glomerular Filtration Rate > 60 BUN/Creatinine Ratio 17 Glucose Level 90 70-105 MG/DL Calcium Level 9.6 8.5-10.1 MG/DL Corrected Calcium 9.7 8.5-10.1 MG/DL Magnesium Level 2.2 1.6-2.4 MG/DL Total Bilirubin 0.4 0.1-1.0 MG/DL Aspartate Amino Transf (AST/SGOT) 20 5-34 U/L Alanine Aminotransferase (ALT/SGPT) 25 0-55 U/L Alkaline Phosphatase 76 40-136 U/L Myoglobin 24.1 10.0-92.0 NG/ML Troponin I 0.031 H <0.028 NG/ML Total Protein 7.3 6.4-8.2 GM/DL Albumin 3.9 3.2-4.5 GM/DL Prothrombin Time 13.7 12.2-14.7 SEC INR Comment 1.0 0.8-1.4 Activated Partial Thromboplast Time 22 L 24-35 SEC D-Dimer 0.86 H 0.00-0.49 UG/ML My Orders Orders - LASHONDA GUTIERREZ MD Cbc With Automated Diff (05/11/21 15:56) Magnesium (05/11/21 15:56) Chest 1 View, Ap/Pa Only (05/11/21 15:56) Ekg Tracing (05/11/21 15:56) Comprehensive Metabolic Panel (05/11/21 15:56) Myoglobin Serum (05/11/21 15:56) Protime With Inr (05/11/21 15:56) Partial Thromboplastin Time (05/11/21 15:56) O2 (05/11/21 15:56) Monitor-Rhythm Ecg Trace Only (05/11/21 15:56) Lipid Panel (05/12/21 06:00) Ed Iv/Invasive Line Start (05/11/21 15:56) Fibrin Degradation Products (05/11/21 15:56) Troponin I (05/11/21 15:56) Aspirin Chewable Tablet (Baby Aspirin Ch (05/11/21 16:00) Famotidine Injection (Pepcid Injection) (05/11/21 15:56) Ns Iv 1000 Ml (Sodium Chloride 0.9%) (05/11/21 16:45) Ct Angio Chest W (05/11/21 16:36) Fentanyl Inj (Sublimaze Injection) (05/11/21 16:39) Ketorolac Injection (Toradol Injection) (05/11/21 16:39) Iohexol Injection (Omnipaque 350 Mg/Ml 1 (05/11/21 16:45) Received Contrast (Hold Metformin- Contr (05/11/21 16:45) Sodium Chloride Flush (Catheter Flush Sy (05/11/21 16:45) Ns (Ivpb) (Sodium Chloride 0.9% Ivpb Bag (05/11/21 16:45) Medications Given in ED Current Medications Medications Dose Ordered Sig/Zeeshan Route Start Time Stop Time Status Last Admin Dose Admin Aspirin 324 mg ONCE ONCE PO 05/11/21 16:00 05/11/21 16:01 DC 05/11/21 16:03 324 MG Iohexol 100 ml ONCE ONCE IV 05/11/21 16:45 05/11/21 16:46 DC 05/11/21 17:15 88 ML Sodium Chloride 10 ml NEEDED PRN IV 05/11/21 16:45 05/11/21 17:15 10 ML Sodium Chloride 100 ml ONCE ONCE IV 05/11/21 16:45 05/11/21 16:46 DC 05/11/21 17:15 80 ML Sodium Chloride 1,000 ml @ 0 mls/hr Q0M ONCE IV 05/11/21 16:45 05/11/21 16:46 DC 05/11/21 16:47 1,000 MLS/HR Vital Signs/I&O 05/11/21 05/11/21 15:25 15:25 Temp 37.0 Pulse 73 Resp 20 B/P (MAP) 142/99 (113) Pulse Ox 98 O2 Delivery Room Air Progress Progress Note : Progress Note Seen and evaluated. IV, labs, EKG and chest x-ray ordered. ASA 324 mg p.o. Pepcid 20 mg IV. Monitor patient. 1650: Normal saline [address] angiogram of the chest ordered due to elevated D-dimer and persistent chest pain. Fentanyl 50 mcg IV and Toradol 15 mg IV ordered. Monitor patient. 1800: Better overall. CT angiogram negative. Fluids complete. I did discuss the case with Dr. Diane. Troponin remained stable from yesterday and is very low and only slightly above readable level. I did discuss with the patient regarding possible causes including pericarditis, myocarditis or pleurisy. This would be treatable with ibuprofen. We will initiate prophylaxis for acid with famotidine [id number]. Dr. Diane recommends follow-up with Dr. Jauregui this week. I did discuss this with the patient and she will call his office tomorrow. Discharged home with return precautions. Patient verbalized understanding of instructions and agreement with plan. Initial ECG Impression Date: May 11, 2021 Initial ECG Impression Time: 15:43 Initial ECG Rate: 78 Initial ECG Rhythm: Normal Sinus Initial ECG Comparisson: Unchanged Comment Sinus rhythm with normal axis. No evidence of ST elevation MO. Similar to previous on yesterday 05/10/2021. Interpreted by me. Diagnostic Imaging Diagonstic Imaging: Xray Plain Films/CT/US/NM/MRI: chest Comments [facility], [facility]. [place], [place] NAME: JAMES HERNDON [facility] REC#: [id number] PT STATUS: REG ER : 1990 PHYSICIAN: LASHONDA GUTIERREZ MD ADMIT DATE: 05/11/21/ER Draft Date of Exam:05/11/21 CHEST 1 VIEW, AP/PA ONLY INDICATION: Chest pain. TECHNIQUE/COMPARISON: A frontal chest was obtained at 4:14 PM and compared to 05/10/2021. FINDINGS: The heart is borderline in size. There is mild central vascular prominence. There is no focal infiltrate, pneumothorax, or pleural fluid. IMPRESSION: Borderline heart size with mild central vascular prominence. No focal infiltrate, edema, or pleural fluid. Dictated on workstation # [id number] Dict: 05/11/21 1614 Trans: 05/11/21 1620 [id number] Interpreted by: CATRACHO INTERIANO MD Electronically signed by: Diagonstic Imaging: CT Plain Films/CT/US/NM/MRI: chest Comments NAME: JAMES HERNDON [facility] REC#: [id number] PT STATUS: REG ER : 1990 PHYSICIAN: LASHONDA GUTIERREZ MD ADMIT DATE: 05/11/21/ER Signed Date of Exam:05/11/21 CT ANGIO CHEST W PROCEDURE: CT angiography of the chest with contrast. TECHNIQUE: Multiple contiguous axial images were obtained through the chest after uneventful bolus administration of intravenous contrast. 3D reconstructed CTA MIP acquisitions were also performed. Auto Exposure Controls were utilized during the CT exam to meet ALARA standards for radiation dose reduction. INDICATION: Chest pain started yesterday continuing through today. High probability of pulmonary emboli. COMPARISON STUDY: CT of the abdomen and pelvis from 11/10/2017. Plain film of the chest from today. FINDINGS: No pulmonary embolism is identified. Smaller vessels are not well opacified. There is no evidence of right heart strain. No aortic aneurysm or dissection is present. No vascular calcifications are seen. There is no abnormal adenopathy. Heart size and vascularity are normal. No pleural or pericardial effusions are present. Visualized portions of the abdomen appear normal. The lungs are clear. The osseous structures appear normal. IMPRESSION: Negative CTA of the chest. Smaller vessels are not well opacified. Dictated by: Dictated on workstation # [id number] Dict: 05/11/21 1725 Trans: 05/11/21 1735 [facility] [id number] Interpreted by: AIYANA PARR MD Electronically signed by: AIYANA PARR MD 05/11/21 1735 Departure Impression Primary Impression: Chest pain Qualified Codes: R07.9 - Chest pain, unspecified Disposition: HOME, SELF-CARE Condition: Stable Departure-Patient Inst. Decision time for Depature: 18:00 Referrals: NO,LOCAL PHYSICIAN (PCP) Primary Care Physician ANSLEY COSTELLO APRN (Family) Primary Care Physician MANISH JAUREGUI JR, MD Patient Instructions: Chest Pain (DC) Add. Discharge Instructions: All discharge instructions reviewed with patient and/or family. Voiced understanding. Call and make appointment with Dr. Jauregui for this week. You may take ibuprofen up to 600 mg every 8 hours as needed for pain. You should stay on this for the next few days and then as needed. You may take Pepcid or the generic famotidine 20 mg once or twice daily to prevent stomach upset or treat stomach upset associated with ibuprofen. Drink plenty of fluids and get plenty of rest. Return for worse pain, fever, vomiting, weakness, breathing problems or other concerns as needed. Scripts Hydrocodone Bit/Acetaminophen (HYDROcodone/APAP 5 MG/325 MG TAB) 1 Tab Tab 1 TAB PO Q6H for Pain, #8 TAB 0 Refills Prov: LASHONDA GUTIERREZ MD 05/11/21 Work/School Note: Work Release Form Date Seen in the Emergency Department: May 11, 2021 Return to Work: May 13, 2021 Restrictions: No Restrictions LASHONDA GUTIERREZ MD May 11, 2021 16:26
[2021-05-11] MEDS ORDERED: KETOROLAC 30 MG/ML VIAL IVP STA (16:39)
[2021-05-11] MEDS ORDERED: fentaNYL INJ 100 MCG/2 ML AMP IVP STA (16:39)
[2021-05-11] MEDS ORDERED: HOLD METFORMIN - RECEIVED CONTRAST 20 ML VIAL IV SCH (16:45)
[2021-05-11] MEDS ORDERED: CATHETER FLUSH 10 ML SYR IV PRN (16:45)
[2021-05-11] MEDS ORDERED: NS IV 1000 ML 1,000 ML IV ONE (16:45)
[2021-05-11] MEDS ORDERED: IOHEXOL 350 MG/ML 100 ML (OMNIPAQUE 350) VIAL IV ONE (16:45)
[2021-05-11] MEDS ORDERED: NS 100 ML (IVPB) BAG IV ONE (16:45)
--- NOTE | 2021-05-11 17:34 | Diagnostic Imaging Report ---
PROCEDURE: CT angiography of the chest with contrast. TECHNIQUE: Multiple contiguous axial images were obtained through the chest after uneventful bolus administration of intravenous contrast. 3D reconstructed CTA MIP acquisitions were also performed. Auto Exposure Controls were utilized during the CT exam to meet ALARA standards for radiation dose reduction. INDICATION: Chest pain started yesterday continuing through today. High probability of pulmonary emboli. COMPARISON STUDY: CT of the abdomen and pelvis from 11/10/2017. Plain film of the chest from today. FINDINGS: No pulmonary embolism is identified. Smaller vessels are not well opacified. There is no evidence of right heart strain. No aortic aneurysm or dissection is present. No vascular calcifications are seen. There is no abnormal adenopathy. Heart size and vascularity are normal. No pleural or pericardial effusions are present. Visualized portions of the abdomen appear normal. The lungs are clear. The osseous structures appear normal. IMPRESSION: Negative CTA of the chest. Smaller vessels are not well opacified. Dictated by: Dictated on workstation # [id number]
[2021-05-11] MEDS ORDERED: ACHD5005 PO (18:03)
[2021-05-11 18:16] VITALS: BP 134/93
== END 2021-05-11 18:18 | disposition home or self-care (01) ==
LOC: EDUNIT# 15:13 → ER 15:15
DX: R07.9 Chest pain, unspecified (principal)
CPT/HCPCS: 36415; 71045; 71275; 80053; 83735; 83874; 84484; 85025; 85379; 85610; 85730; 93005; 93041

== ENCOUNTER 2021-05-16 11:41 | Day surgery (SDC) | payer MEDICAID ==
[2021-05-16] VITALS (9 sets, daily range): BP systolic 104–156; BP diastolic 63–102
[~2021-05-16] VITALS: Ht 172.7 cm; Wt 136.9 kg
[2021-05-16 12:09] LABS: BASOPHILS # (AUTO) 0.1 10^3/uL (0.0-0.1); BASOPHILS % (AUTO) 1 % (0-10); EOSINOPHILS # (AUTO) 0.2 10^3/uL (0.0-0.3); EOSINOPHILS % (AUTO) 2 % (0-10); HEMATOCRIT 43 % (35-52); HEMOGLOBIN 14.1 g/dL (11.5-16.0); LYMPHOCYTES # (AUTO) 2.9 10^3/uL (1.0-4.0); LYMPHOCYTES % (AUTO) 32 % (12-44); MEAN CORPUSCULAR HEMOGLOBIN 28 pg (25-34); MEAN CORPUSCULAR HGB CONC 33 g/dL (32-36); MEAN CORPUSCULAR VOLUME 84 fL (80-99); MEAN PLATELET VOLUME 10.3 fL (9.0-12.2); MONOCYTES # (AUTO) 0.6 10^3/uL (0.0-1.0); MONOCYTES % (AUTO) 6 % (0-12); NEUTROPHILS # (AUTO) 5.4 10^3/uL (1.8-7.8); NEUTROPHILS % (AUTO) 59 % (42-75); PLATELET COUNT 358 10^3/uL (130-400); WHITE BLOOD COUNT 9.1 10^3/uL (4.3-11.0)
--- NOTE | 2021-05-16 12:09 | ED Chest Pain ---
General Chief Complaint: Chest Pain Stated Complaint: CHEST PAIN/ SOB Nursing Triage Note: Pt ambulatory to ED from work. Pt c/o chest pain and heaviness. Pt reports intermittent episode of the same heaviness/pain since last Sunday. Pt reports this is third ED visit since last Sunday. Pt was at work when pain begain today. Pt c/o nausea and SOB breath with pain. Nursing Sepsis Screen: No Definite Risk Source: patient Exam Limitations: no limitations History of Present Illness Date Seen by Provider: May 16, 2021 Time Seen by Provider: 12:00 Initial Comments To ER with chest pain. She has had some chest heaviness rated at 5 out of 10 since yesterday. Nothing makes it better nothing makes it worse. She has been seen here in the emergency room twice for this already, today will be the third time. This started last week. She was found to have a ever so slightly elevated but persistently elevated troponin, had an echocardiogram without abnormality and was discharged home. She returns today with persistent chest pain. 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: No NTG SL DECORATOR HAND: No Allergies and Home Medications Allergies Coded Allergies: No Known Drug Allergies (Unverified , 07/11/10) Home Medications Acetaminophen 500 Mg Tablet, 1,000 MG PO Q8H PRN for PAIN-MILD (1-4), (Reported) Last Action: Reviewed Hydrocodone/Acetaminophen 1 Each Tablet, 1 EA PO Q6H PRN for PAIN-MODERATE (5- 7), (Reported) Last Action: Reviewed Ibuprofen 200 Mg Tablet, 400 MG PO Q8H PRN for PAIN-MILD (1-4), (Reported) Last Action: Reviewed Medroxyprogesterone Acetate 150 Mg/1 Ml Syringe, 150 MG INJ EVERY 3 MONTHS, (Reported) Last Action: Reviewed Metoprolol Tartrate 25 Mg Tablet, 25 MG PO BID, (Reported) Last Action: Reviewed Patient Home Medication List Home Medication List Reviewed: Yes Review of Systems Review of Systems Constitutional: see HPI EENTM: No Symptoms Reported Respiratory: No Symptoms Reported Cardiovascular: See HPI, Chest Pain Gastrointestinal: See HPI Genitourinary: No Symptoms Reported Musculoskeletal: no symptoms reported Skin: no symptoms reported Psychiatric/Neurological: No Symptoms Reported Endocrine: No Symptoms Reported Hematologic/Lymphatic: No Symptoms Reported Past Xyhvmzi-Gdzbjl-Gykxhi Hx Patient Social History Alcohol Use: Rarely Uses Smoking Status: Never a Smoker Type Used: Cigarettes Recent Infectious Disease Expo: No Recent Hopitalizations: No Immunizations Up To Date Tetanus Booster (TDap): Unknown PED Vaccines UTD: No Date of Influenza Vaccine: Aug 26, 2012 Seasonal Allergies Seasonal Allergies: No Past Medical History Surgeries: Yes (LEFT SHOULDER X2, X 4, MASS REMOVED FROM LEFT SIDE OF JAW) Adenoidectomy, Appendectomy, Section, Orthopedic, Tonsillectomy Respiratory: No Cardiac: No Neurological: No Reproductive Disorders: No Female Reproductive Disorders: 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 2.0oz. 157.938833pd; 45.00 BMI Method:Stated General Appearance: No Apparent Distress, WD/WN, Obese HEENT: PERRL/EOMI, TMs Normal Respiratory: Normal Breath Sounds, No Accessory Muscle Use, No Respiratory Distress Cardiovascular: Regular Rate, Rhythm, Normal Peripheral Pulses Gastrointestinal: Normal Bowel Sounds, Non Tender, Soft Extremity: Normal Capillary Refill, Normal Inspection Neurologic/Psychiatric: Alert, Oriented x3 Skin: Normal Color, Warm/Dry Progress/Results/Core Measures Results/Orders Lab Results Laboratory Tests Test 05/16/21 11:53 05/16/21 12:05 Range/Units White Blood Count 9.1 4.3-11.0 10^3/uL Red Blood Count 5.12 H 3.80-5.11 10^6/uL Hemoglobin 14.1 11.5-16.0 g/dL Hematocrit 43 35-52 % Mean Corpuscular Volume 84 80-99 fL Mean Corpuscular Hemoglobin 28 25-34 pg Mean Corpuscular Hemoglobin Concent 33 32-36 g/dL Red Cell Distribution Width 13.0 10.0-14.5 % Platelet Count 358 130-400 10^3/uL Mean Platelet Volume 10.3 9.0-12.2 fL Immature Granulocyte % (Auto) 0 % Neutrophils (%) (Auto) 59 42-75 % Lymphocytes (%) (Auto) 32 12-44 % Monocytes (%) (Auto) 6 0-12 % Eosinophils (%) (Auto) 2 0-10 % Basophils (%) (Auto) 1 0-10 % Neutrophils # (Auto) 5.4 1.8-7.8 10^3/uL Lymphocytes # (Auto) 2.9 1.0-4.0 10^3/uL Monocytes # (Auto) 0.6 0.0-1.0 10^3/uL Eosinophils # (Auto) 0.2 0.0-0.3 10^3/uL Basophils # (Auto) 0.1 0.0-0.1 10^3/uL Immature Granulocyte # (Auto) 0.0 0.0-0.1 10^3/uL Erythrocyte Sedimentation Rate 24 H 0-20 MM/HR Sodium Level 137 135-145 MMOL/L Potassium Level 3.3 L 3.6-5.0 MMOL/L Chloride Level 104 98-107 MMOL/L Carbon Dioxide Level 22 21-32 MMOL/L Anion Gap 11 5-14 MMOL/L Blood Urea Nitrogen 11 7-18 MG/DL Creatinine 0.83 0.60-1.30 MG/DL Estimat Glomerular Filtration Rate > 60 BUN/Creatinine Ratio 13 Glucose Level 89 70-105 MG/DL Calcium Level 9.5 8.5-10.1 MG/DL Corrected Calcium 9.4 8.5-10.1 MG/DL Total Bilirubin 0.5 0.1-1.0 MG/DL Aspartate Amino Transf (AST/SGOT) 22 5-34 U/L Alanine Aminotransferase (ALT/SGPT) 25 0-55 U/L Alkaline Phosphatase 88 40-136 U/L Troponin I 0.031 H <0.028 NG/ML C-Reactive Protein High Sensitivity 0.41 0.00-0.50 MG/DL Total Protein 7.6 6.4-8.2 GM/DL Albumin 4.1 3.2-4.5 GM/DL Serum Test, Qualitative NEGATIVE NEGATIVE D-Dimer 0.80 H 0.00-0.49 UG/ML My Orders Orders - LEEANN CHAVEZ APRN Cbc With Automated Diff (05/16/21 11:56) Comprehensive Metabolic Panel (05/16/21 11:56) Fibrin Degradation Products (05/16/21 11:56) Hs C Reactive Protein (05/16/21 11:56) Hcg,Qualitative Serum (05/16/21 11:56) Troponin I (05/16/21 11:59) Enoxaparin Injection (Lovenox Injection) (05/16/21 13:00) Enoxaparin Injection (Lovenox Injection) (05/16/21 13:00) Ketorolac Injection (Toradol Injection) (05/16/21 13:00) Erythrocyte Sedimentation Rate (05/16/21 12:58) Covid 19 Inhouse Test (05/16/21 13:07) Influenza A And B By Pcr (05/16/21 13:07) Medications Given in ED Current Medications Medications Dose Ordered Sig/Zeeshan Route Start Time Stop Time Status Last Admin Dose Admin Enoxaparin Sodium 30 mg ONCE ONCE SC 05/16/21 13:00 05/16/21 13:01 DC 05/16/21 13:10 30 MG Enoxaparin Sodium 100 mg ONCE ONCE SC 05/16/21 13:00 05/16/21 13:01 DC 05/16/21 13:11 100 MG Ketorolac Tromethamine 30 mg ONCE ONCE IVP 05/16/21 13:00 05/16/21 13:01 DC 05/16/21 13:07 30 MG Vital Signs/I&O 05/16/21 05/16/21 11:45 11:45 Temp 36.7 Pulse 86 Resp 14 B/P (MAP) 140/97 (111) Pulse Ox 100 O2 Delivery Room Air Room Air Blood Pressure Mean: 111 Initial ECG Impression Date: May 16, 2021 Initial ECG Impression Time: 12:00 Initial ECG Rate: 75 Initial ECG Rhythm: Normal Sinus Initial ECG Impression: Nonspecific Changes Departure Communication (Admissions) D/w Dr merlos. Suspects myocarditis. Recomends admission, IVF, NPO, willl cath her Impression Primary Impression: Myocarditis Disposition: ADMITTED INPATIENT Condition: Stable Admissions Decision to Admit Reason: Admit from ER (General) Decision to Admit/Date: May 16, 2021 Time/Decision to Admit Time: 12:53 Departure-Patient Inst. Referrals: NO,LOCAL PHYSICIAN (PCP) Primary Care Physician ANSLEY COSTELLO APRN (Family) Primary Care Physician LEEANN CHAVEZ APRN May 16, 2021 12:09
[2021-05-16 12:18] LABS: ALBUMIN 4.1 GM/DL (3.2-4.5)
[2021-05-16 12:19] LABS: CHLORIDE 104 MMOL/L (98-107); POTASSIUM 3.3 MMOL/L (3.6-5.0); SODIUM 137 MMOL/L (135-145)
[2021-05-16 12:20] LABS: CALCIUM 9.5 MG/DL (8.5-10.1)
[2021-05-16 12:21] LABS: GLUCOSE 89 MG/DL (70-105); TOTAL PROTEIN 7.6 GM/DL (6.4-8.2)
[2021-05-16 12:22] LABS: CARBON DIOXIDE 22 MMOL/L (21-32)
[2021-05-16 12:23] LABS: BILIRUBIN,TOTAL 0.5 MG/DL (0.1-1.0)
[2021-05-16 12:24] LABS: ALKALINE PHOSPHATASE 88 U/L (40-136)
[2021-05-16 12:25] LABS: CREATININE SERUM 0.83 MG/DL (0.60-1.30); GFR ESTIMATED > 60
[2021-05-16 12:26] LABS: BUN/CREATININE RATIO 13
[2021-05-16 12:28] LABS: ALANINE AMINOTRANSFERASE 25 U/L (0-55)
[2021-05-16] MEDS ORDERED: ENOXAPARIN 100 MG/1 ML (LOVENOX) SYR SC ONE (13:00)
[2021-05-16] MEDS ORDERED: KETOROLAC 30 MG/ML VIAL IVP ONE (13:00)
[2021-05-16] MEDS ORDERED: ENOXAPARIN 30 MG/0.3 ML (LOVENOX) SYR SC ONE (13:00)
[2021-05-16] MEDS ORDERED: LORazepam INJ 2 MG/ML (ATIVAN) VIAL IVP PRN (13:45)
[2021-05-16] MEDS ORDERED: LACTATED RINGERS 1,000 ML IV ONE (14:16)
[2021-05-16] MEDS: LACTATED RINGERS 1,000 ML IV SCH ×2 (14:25→21:36)
[2021-05-16] MEDS ORDERED: CATHETER FLUSH 10 ML SYR IV PRN (14:30)
[2021-05-16] MEDS ORDERED: ONDANSETRON 4 MG/2 ML (SDV) Z0FRAN IV PRN (14:30)
[2021-05-16] MEDS ORDERED: KETOROLAC 15 MG/ML VIAL IV PRN (14:30)
--- NOTE | 2021-05-16 14:42 | History & Physical ---
HPI History of Present Illness: 31 yo female came to ER today due to severe chest pain that has started last Sunday. Chest pain is central and sharp, does not radiate. Admits shortness of breath. Pain is transient over the last week but not associated with exertion, is random. When pain occurs she also has nausea. Denies cough. She denies any past medical history, but was seen in ER last week with similar chest pain and reports she had slightly elevated troponin level. She followed up with primary and was referred to Cardiology but hasn't gotten to see them outpatient yet. She was started on metoprolol last week for tachycardia. She states she had strep throat about a month ago, doesn't recall if she had a positive test, but she was treated with antibiotics and steroids, and got better but about a week later had head congestion and sinus symptoms and was treated she believes with another antibiotic and steroid and that did resolve prior to these current symptoms. She denies rash, joint pains. Source: patient Date seen by provider: May 16, 2021 Time Seen by Provider: 15:00 Attending Physician Mary Walter MD PCP No,Local Physician Consult Date of Admission May 16, 2021 at 13:09 Home Medications Home Medications Reviewed patient Home Medication Reconciliation performed by pharmacy medication reconciliations surfacing technician and/or nursing. Patients Allergies have been reviewed. Allergies Coded Allergies: No Known Drug Allergies (Unverified , 07/11/10) ESZ-Iyzbnc-Qrzpgs Hx Patient Social History Smoking Status: Never a Smoker Recent Hopitalizations: No Alcohol Use?: No Have you traveled recently?: No Immunizations Up To Date Tetanus Booster (TDap): Unknown Date of Influenza Vaccine: Aug 26, 2012 Past Medical History PMHx: Denies SurgHx: Appendectomy Tonsillectomy and adenoidectomy C sections Shoulder surgery x 2 Right parotid removal for benign tumor Family Medical History Significant Family History: Diabetes, Hypertension Other Significan Family Hx: Reports third cousin recently unexpectedly in early 30s Review of Systems ([facility]) Constitutional: No fever EENTM: No nose congestion, No throat pain Respiratory: see HPI Cardiovascular: see HPI Gastrointestinal: No abdominal pain, No constipation, No diarrhea, No vomiting Genitourinary: No dysuria, No hematuria Musculoskeletal: No joint pain Skin: No rash Psychiatric/Neurological: Denies Headache Reviewed Test Results Reviewed Test Results Lab Laboratory Tests Test 6/21/21 11:53 05/16/21 12:05 05/16/21 13:14 Range/Units White Blood Count 9.1 4.3-11.0 10^3/uL Red Blood Count 5.12 H 3.80-5.11 10^6/uL Hemoglobin 14.1 11.5-16.0 g/dL Hematocrit 43 35-52 % Mean Corpuscular Volume 84 80-99 fL Mean Corpuscular Hemoglobin 28 25-34 pg Mean Corpuscular Hemoglobin Concent 33 32-36 g/dL Red Cell Distribution Width 13.0 10.0-14.5 % Platelet Count 358 130-400 10^3/uL Mean Platelet Volume 10.3 9.0-12.2 fL Immature Granulocyte % (Auto) 0 % Neutrophils (%) (Auto) 59 42-75 % Lymphocytes (%) (Auto) 32 12-44 % Monocytes (%) (Auto) 6 0-12 % Eosinophils (%) (Auto) 2 0-10 % Basophils (%) (Auto) 1 0-10 % Neutrophils # (Auto) 5.4 1.8-7.8 10^3/uL Lymphocytes # (Auto) 2.9 1.0-4.0 10^3/uL Monocytes # (Auto) 0.6 0.0-1.0 10^3/uL Eosinophils # (Auto) 0.2 0.0-0.3 10^3/uL Basophils # (Auto) 0.1 0.0-0.1 10^3/uL Immature Granulocyte # (Auto) 0.0 0.0-0.1 10^3/uL Erythrocyte Sedimentation Rate 24 H 0-20 MM/HR Sodium Level 137 135-145 MMOL/L Potassium Level 3.3 L 3.6-5.0 MMOL/L Chloride Level 104 98-107 MMOL/L Carbon Dioxide Level 22 21-32 MMOL/L Anion Gap 11 5-14 MMOL/L Blood Urea Nitrogen 11 7-18 MG/DL Creatinine 0.83 0.60-1.30 MG/DL Estimat Glomerular Filtration Rate > 60 BUN/Creatinine Ratio 13 Glucose Level 89 70-105 MG/DL Calcium Level 9.5 8.5-10.1 MG/DL Corrected Calcium 9.4 8.5-10.1 MG/DL Total Bilirubin 0.5 0.1-1.0 MG/DL Aspartate Amino Transf (AST/SGOT) 22 5-34 U/L Alanine Aminotransferase (ALT/SGPT) 25 0-55 U/L Alkaline Phosphatase 88 40-136 U/L Troponin I 0.031 H <0.028 NG/ML C-Reactive Protein High Sensitivity 0.41 0.00-0.50 MG/DL Total Protein 7.6 6.4-8.2 GM/DL Albumin 4.1 3.2-4.5 GM/DL Serum Test, Qualitative NEGATIVE NEGATIVE D-Dimer 0.80 H 0.00-0.49 UG/ML Influenza Type A (RT-PCR) Not Detected Not Detecte Influenza Type B (RT-PCR) Not Detected Not Detecte SARS-CoV-2 RNA (RT-PCR) Not Detected Not Detecte Physical Exam-([facility]) Physical Exam Vital Signs VS - Last 72 Hours, by Label 05/16/21 05/16/21 05/16/21 05/16/21 11:45 11:45 13:53 14:03 Temp 36.7 36.7 Pulse 86 89 Resp 14 18 B/P (MAP) 140/97 (111) 135/87 (111) Pulse Ox 100 100 O2 Delivery Room Air Room Air Room Air Room Air 05/16/21 05/16/21 05/16/21 05/16/21 14:08 14:12 14:15 15:46 Temp 36.6 36.6 Pulse 84 87 61 Resp 12 21 B/P (MAP) 156/102 (120) 155/98 (117) Pulse Ox 100 94 O2 Delivery Room Air Room Air Room Air Capillary Refill : Less Than 3 Seconds General Appearance: WD/WN, other (tearful) Eyes: Bilateral Eye EOMI Respiratory: lungs clear Cardiovascular: regular rate, rhythm, no murmur Gastrointestinal: normal bowel sounds, non tender, soft Extremities: no pedal edema Neurologic/Psychiatric: alert, normal mood/affect, other (tearful, anxious appearing) Skin: normal color, warm/dry Assessment/Plan Assessment/Plan Admission Status: Inpatient Order (span 2 midnights) Reason for Inpatient Admission: Cardiac workup needed including cath (1) Troponin level elevated Status: Acute Assessment & Plan: Stable since 05/10, had echo on ER visit within the week with normal EF and no other abnormalities. Cardiology consulted, appreciate recommendations. (2) Myocarditis Status: Acute Assessment & Plan: Suspected, Cardiology consulted appreciate recommendations. COVID negative and has not had vaccination. (3) Elevated blood pressure reading Status: Acute Clinical Quality Measures AMI/AHF: ASA po Prior to arrival: MARY Chapa MD May 16, 2021 14:42
[2021-05-16] MEDS ORDERED: fentaNYL INJ 100 MCG/2 ML AMP ONE (15:04)
[2021-05-16] MEDS ORDERED: HEParin (CATH LAB) 2,000 ML IV ONE (15:05)
[2021-05-16] MEDS ORDERED: LIDOCAINE 1% INJ 20 ML 20 ML VIAL ONE (15:05)
[2021-05-16] MEDS ORDERED: MIDAZOLAM 5 MG/5 ML (VERSED) VIAL ONE (15:05)
[2021-05-16] MEDS ORDERED: VERAPAMIL 5 MG/2 ML (CALAN) VIAL IV ONE (15:06)
[2021-05-16] MEDS ORDERED: NITRO DRIP 25000 MCG/D5W 0 ML IV ONE (15:07)
[2021-05-16] MEDS ORDERED: HEParin 1000 UNIT/ML (10ML VIAL) FOR BOLUS ONE (15:07)
[2021-05-16] MEDS ORDERED: ACHD5005 PO (15:29)
[2021-05-16] MEDS ORDERED: IBUP-2473 PO (15:29)
[2021-05-16] MEDS ORDERED: METO-333 PO (15:29)
[2021-05-16] MEDS ORDERED: ACET-2267 PO (15:29)
[2021-05-16] MEDS ORDERED: MEDR150D6 INJ (15:29)
--- NOTE | 2021-05-16 16:37 | Consultation-Cardiology ---
HPI-Cardiology Cardiology Consultation Date of Consultation 05/16/21 Date of Admission Time Seen by Provider: 16:34 Indication: Chest pain HPI 31-year-old lady with history of shortness of breath, had multiple emergency room visits for recurrent chest pain and mild elevation in troponin. She was seen by Dr. Jauregui last week and scheduled to follow-up as an outpatient, return to the emergency room over the weekend then this afternoon, described tightness in the retrosternal area associated with shortness of breath and pressure and heaviness, no acute EKG changes, had incomplete right bundle branch block. Was noted again to have slight elevation in troponin. No syncope or near syncopal episodes Home Medications & Allergies Allergies: Coded Allergies: No Known Drug Allergies (Unverified , 07/11/10) Home Medication List Reviewed: Yes UAR-Dqvmab-Jkvwon Hx Patient Social History Marital Status: Recreational Drug Use: No Smoking Status: Never a Smoker Type Used: Cigarettes Recent Hopitalizations: No Have you traveled recently?: No Alcohol Use?: No Immunizations Up To Date Tetanus Booster (TDap): Unknown Date of Influenza Vaccine: Aug 26, 2012 Past Medical History Discussed below Family Medical History Significant Family History: Diabetes, Hypertension Family History: Diabetes mellitus 19 FATHER 19 MOTHER Hypertension 19 MOTHER Review of Systems-General Review of Systems Constitutional: see HPI EENTM: see HPI, no symptoms reported Respiratory: see HPI; No cough; dyspnea on exertion; No hemoptysis, No orthopnea, No phlegm, No short of breath, No stridor, No wheezing, No other Cardiovascular: see HPI, chest pain; No edema, No Hx of Intervention, No palpitations, No syncope, No vascular heart diseas, No other Gastrointestinal: no symptoms reported, see HPI Genitourinary: no symptoms reported, see HPI Musculoskeletal: no symptoms reported Skin: no symptoms reported Psychiatric/Neurological: No Symptoms Reported Reviewed Test Results Reviewed Test Results Lab Laboratory Tests Test 05/16/21 11:53 05/16/21 12:05 05/16/21 13:14 Range/Units White Blood Count 9.1 4.3-11.0 10^3/uL Red Blood Count 5.12 H 3.80-5.11 10^6/uL Hemoglobin 14.1 11.5-16.0 g/dL Hematocrit 43 35-52 % Mean Corpuscular Volume 84 80-99 fL Mean Corpuscular Hemoglobin 28 25-34 pg Mean Corpuscular Hemoglobin Concent 33 32-36 g/dL Red Cell Distribution Width 13.0 10.0-14.5 % Platelet Count 358 130-400 10^3/uL Mean Platelet Volume 10.3 9.0-12.2 fL Immature Granulocyte % (Auto) 0 % Neutrophils (%) (Auto) 59 42-75 % Lymphocytes (%) (Auto) 32 12-44 % Monocytes (%) (Auto) 6 0-12 % Eosinophils (%) (Auto) 2 0-10 % Basophils (%) (Auto) 1 0-10 % Neutrophils # (Auto) 5.4 1.8-7.8 10^3/uL Lymphocytes # (Auto) 2.9 1.0-4.0 10^3/uL Monocytes # (Auto) 0.6 0.0-1.0 10^3/uL Eosinophils # (Auto) 0.2 0.0-0.3 10^3/uL Basophils # (Auto) 0.1 0.0-0.1 10^3/uL Immature Granulocyte # (Auto) 0.0 0.0-0.1 10^3/uL Erythrocyte Sedimentation Rate 24 H 0-20 MM/HR Sodium Level 137 135-145 MMOL/L Potassium Level 3.3 L 3.6-5.0 MMOL/L Chloride Level 104 98-107 MMOL/L Carbon Dioxide Level 22 21-32 MMOL/L Anion Gap 11 5-14 MMOL/L Blood Urea Nitrogen 11 7-18 MG/DL Creatinine 0.83 0.60-1.30 MG/DL Estimat Glomerular Filtration Rate > 60 BUN/Creatinine Ratio 13 Glucose Level 89 70-105 MG/DL Calcium Level 9.5 8.5-10.1 MG/DL Corrected Calcium 9.4 8.5-10.1 MG/DL Total Bilirubin 0.5 0.1-1.0 MG/DL Aspartate Amino Transf (AST/SGOT) 22 5-34 U/L Alanine Aminotransferase (ALT/SGPT) 25 0-55 U/L Alkaline Phosphatase 88 40-136 U/L Troponin I 0.031 H <0.028 NG/ML C-Reactive Protein High Sensitivity 0.41 0.00-0.50 MG/DL Total Protein 7.6 6.4-8.2 GM/DL Albumin 4.1 3.2-4.5 GM/DL Serum Test, Qualitative NEGATIVE NEGATIVE D-Dimer 0.80 H 0.00-0.49 UG/ML Influenza Type A (RT-PCR) Not Detected Not Detecte Influenza Type B (RT-PCR) Not Detected Not Detecte SARS-CoV-2 RNA (RT-PCR) Not Detected Not Detecte Physical Exam Physical Exam Vital Signs Vital Signs - First Documented Capillary Refill : Less Than 3 Seconds Height, Weight, BMI Height: 5'8.00" Weight: 347lbs. 2.0oz. [id number]; 45.90 BMI Method:Stated General Appearance: No Apparent Distress, WD/WN, Obese HEENT: PERRL/EOMI, TMs Normal Respiratory: Normal Breath Sounds, No Accessory Muscle Use, No Respiratory Distress Cardiovascular: Regular Rate, Rhythm, Normal Peripheral Pulses Gastrointestinal: Normal Bowel Sounds, Non Tender, Soft Extremity: Normal Capillary Refill, Normal Inspection Neurologic/Psychiatric: Alert, Oriented x3 Skin: Normal Color, Warm/Dry A/P-Cardiology Admission Diagnosis Chest pain Coronary artery disease Family history of atherosclerosis Assessment/Plan Chest pain nonspecific etiology, atypical in presentation, had slightly abnormal EKG, multiple emergency room visit, discussed with the patient the management plan recommended coronary angiogram. I will proceed with the procedure today. Mild troponin leak, multiple emergency room visit with persistent elevation in troponin, no sign of congestive heart failure, had an echocardiogram did not sh ow any structural heart disease or pericardial effusion, no signs of myocarditis. BMI 45, we discussed weight loss and exercise Strong family history of heart disease Clinical Quality Measures AMI/AHF: ASA po Prior to arrival: ROGERS Santoyo MD May 16, 2021 16:37
--- NOTE | 2021-05-16 16:38 | Conscious Sedation/ASA ---
Conscious Sedation Pre-Proced Time 16:37 ASA Score 3 For ASA 3 and 4: Consider anesthesia and medical clearance. Also, for patients with a history of failed moderate sedation consider anesthesia. Airway Lungs Heart ASA score ASA 1: a normal healthy patient ASA 2: a patient with a mild systemic disease (mid diabetes, controlled hypertension, obesity x ASA 3: a patient with a severe systemic disease that limits activity (angina, COPD, prior Myocardial infarction) ASA 4: a patient with an incapacitating disease that is a constant threat to life (CHF, renal failure) ASA 5: a moribund patient not expected to survive 24 hrs. (ruptured aneurysm) ASA 6: a declared brain- patient whose organs are being harvested. For emergent operations, add the letter E after the classification Mallampati Classification Grade 3 Sedation Plan Analgesia, Amnesia, Plan communicated to team members, Discussed options with patient/fam, Discussed risks with patient/fam The patient is an appropriate candidate to undergo the planned procedure, sedation, and anesthesia. The patient immediately re-assessed prior to indication. ROGERS RICO MD May 16, 2021 4:38 pm
[2021-05-16] MEDS ORDERED: PATIENT MAY USE OWN MEDS, ALL PO SCH (17:00)
--- NOTE | 2021-05-16 17:04 | Cardiac Cath Report ---
Cardiac Cath Report Physician (s)/Screen Tender (s) Physician ROGERS RICO MD Pre-Procedure Diagnosis Pre-Procedure Diagnosis: Chest pain Post-Procedure Note Procedure Start Date: May 16, 2021 Name of Procedure: Left heart catheterization Findings/Procedure Note PROCEDURE NOTE: 31-year-old lady with multiple emergency room visit for recurrent chest pain with multiple episode of mild elevation in troponin, return to the ER today with chest pain and slight troponin elevation. After discussing the management plan with the patient we decided to proceed with coronary angiogram and evaluate her coronary anatomy. After explaining the procedure to the patient, all pros and cons were explained, all questions were answered. The patient signed the consent and then she was placed on the cardiac catheterization laboratory. Groin was prepped SL fashion local anesthesia was used. Sheath placed in the right femoral artery. Zafar right and left catheter were used to access the coronary system. Pigtail was used to access the left ventricular cavity. Left ventriculogram was not done, pressure was measured At the end of the procedure the sheath was removed. Closure device was deployed FINDINGS: Hemodynamics LV 130/18, end-diastolic pressure of 18 Aorta 129/84 mean of 104 ANATOMY: Left Main is very short almost separate ostium of the LAD and circumflex artery Left Anterior Descending has no obstructive disease Left Circumflex is dominant with no obstructive disease Right Coronary Artery is small artery with mild disease no obstructive disease LV Gram was not done, pressure was measured CONCLUSION: 1. Normal coronary system with no significant obstructive disease 2. Slightly elevated left ventricular end-diastolic pressure DISCUSSION AND RECOMMENDATION: Chest pain is probably noncardiac, elevated troponin is not related to coronary artery disease. No signs of heart failure or myocarditis at this point Anesthesia Type: Conscious Sedation Estimated blood loss (mL): 10 ml Contrast Amount: 32 ml Total Radiation Dose: 421 mGy Post-Procedure Diagnosis Post-operative diagnosis: Chest pain Elevated troponin Shortness of breath ROGERS RICO MD May 16, 2021 5:04 pm
[2021-05-16] MEDS: NS IV 1000 ML 1,000 ML IV SCH (17:31)
[2021-05-16] MEDS: PANTOPRAZOLE 40 MG (PROTONIX) TAB PO SCH (21:28)
[2021-05-17] VITALS: BP 109/69
[2021-05-17] MEDS: NS IV 1000 ML 1,000 ML IV SCH (03:12)
[2021-05-17 04:00] VITALS: BP 122/73
[2021-05-17] MEDS: LACTATED RINGERS 1,000 ML IV SCH (04:07)
[2021-05-17 04:20] LABS: BASOPHILS # (AUTO) 0.1 10^3/uL (0.0-0.1); BASOPHILS % (AUTO) 1 % (0-10); EOSINOPHILS # (AUTO) 0.2 10^3/uL (0.0-0.3); EOSINOPHILS % (AUTO) 3 % (0-10); HEMATOCRIT 39 % (35-52); HEMOGLOBIN 12.8 g/dL (11.5-16.0); LYMPHOCYTES # (AUTO) 2.4 10^3/uL (1.0-4.0); LYMPHOCYTES % (AUTO) 40 % (12-44); MEAN CORPUSCULAR HEMOGLOBIN 28 pg (25-34); MEAN CORPUSCULAR HGB CONC 33 g/dL (32-36); MEAN CORPUSCULAR VOLUME 84 fL (80-99); MEAN PLATELET VOLUME 10.6 fL (9.0-12.2); MONOCYTES # (AUTO) 0.6 10^3/uL (0.0-1.0); MONOCYTES % (AUTO) 9 % (0-12); NEUTROPHILS # (AUTO) 2.9 10^3/uL (1.8-7.8); NEUTROPHILS % (AUTO) 48 % (42-75); PLATELET COUNT 273 10^3/uL (130-400); WHITE BLOOD COUNT 6.1 10^3/uL (4.3-11.0)
[2021-05-17 05:15] LABS: BUN/CREATININE RATIO 14; CALCIUM 9.1 MG/DL (8.5-10.1); CARBON DIOXIDE 22 MMOL/L (21-32); CHLORIDE 110 MMOL/L (98-107); CREATININE SERUM 0.71 MG/DL (0.60-1.30); GFR ESTIMATED > 60; GLUCOSE 100 MG/DL (70-105); POTASSIUM 3.8 MMOL/L (3.6-5.0); SODIUM 140 MMOL/L (135-145)
[2021-05-17 07:54] VITALS: BP 146/91
--- NOTE | 2021-05-17 07:59 | Cardiology Progress Note ---
Subjective Date Seen by Provider: May 17, 2021 Time Seen by Provider: 07:58 Subjective/Events-last exam Patient is laying down in bed, no further episodes of chest pain, groin is healing well Review of Systems General: No Chills, No Night Sweats, No Fatigue, No Malaise, No Appetite, No Other HEENT: No Head Aches, No Visual Changes, No Eye Pain, No Ear Pain, No Dysph cory, No Sinus Congestion, No Post Nasal Drip, No Sore Throat, No Other Pulmonary: No Dyspnea, No Cough, No Pleuritic Chest Pain, No Other Cardiovascular: No: Chest Pain, Palpitations, Orthopnea, Paroxysmal Noc. Dyspnea, Edema, Lt Headedness, Other Objective-Cardiology Exam Last Set of Vital Signs Vital Signs 05/17/21 07:54 Temp 36.8 Pulse 90 Resp 15 B/P (MAP) 146/91 (109) Pulse Ox 97 O2 Delivery Room Air Capillary Refill : Less Than 3 Seconds I&O Intake and Output 05/17/21 00:00 Intake Total 0 ml Balance 0 ml Intake Oral 0 ml # Voids 1 Daily Weight Change No General: Alert, Oriented X3, Cooperative HEENT: Atraumatic, PERRLA Neck: Supple, No JVD, No Thyromegaly Lungs: Clear to Auscultation, Normal Air Movement Heart: Regular Rate, Normal S1, Normal S2, No Murmurs Abdomen: Normal Bowel Sounds, Soft, No Tenderness, No Hepatosplenomegaly, No Masses Extremities: No Clubbing, No Cyanosis, No Edema, Normal Pulses, No Tenderness/ Swelling Skin: No Rashes, No Breakdown, No Significant Lesion Neuro: Normal Gait, Normal Speech, Strength at 5/5 X4 Ext, Normal Tone, Sensation Intact Psych/Mental Status: Mental Status NL, Mood NL Results Lab Laboratory Tests 05/16/21 11:53 05/17/21 03:58 A/P-Cardiology Admission Diagnosis Chest pain Coronary artery disease Family history of atherosclerosis Assessment/Plan Chest pain nonspecific etiology, atypical in presentation, cardiac catheterization was carried out on May 16, 2021 showing no significant obstructive coronary artery disease. Chest pain is probably noncardiac, I started her on Protonix and patient is feeling better Mild troponin leak, multiple emergency room visit with persistent elevation in troponin, no sign of congestive heart failure, had an echocardiogram did not show any structural heart disease or pericardial effusion, no signs of myocarditis. BMI 45, we discussed weight loss and exercise Strong family history of heart disease Okay for discharge and follow-up as an outpatient, consider EGD referral Clinical Quality Measures AMI/AHF: ASA po Prior to arrival: ROGERS Santoyo MD May 17, 2021 07:59
[2021-05-17] MEDS: PANTOPRAZOLE 40 MG (PROTONIX) TAB PO SCH (08:15)
--- NOTE | 2021-05-17 09:38 | Discharge Summary ---
Discharge Summary Hospital Course Problems/Diagnosis: (1) Troponin level elevated Status: Chronic Assessment & Plan: Stable since 05/10, had echo on ER visit within the week with normal EF and no other abnormalities. Cardiology consulted, appreciate recommendations. Cardiac catheterization done with no abnormalities noted, pain thought to be non-cardiac. Started on PPI and recommended consideration for EGD outpatient. (2) Myocarditis Status: Resolved Resolution Date/Time: 05/17/21 @ 09:37 Assessment & Plan: Suspected, Cardiology consulted appreciate recommendations. COVID negative and has not had vaccination. After catheterization Cardiology did not suspect myocarditis. (3) Elevated blood pressure reading Status: Acute Hospital Course Date of Admission: May 16, 2021 at 13:09 Admission Diagnosis : Family Physician/Provider: Elizabeth Tejada Aprn Date of Discharge: 05/17/21 Discharge Diagnosis: [ ] Hospital Course: [ ] Labs and Pending Lab Test: Laboratory Tests 05/16/21 11:53: White Blood Count 9.1, Red Blood Count 5.12H, Hemoglobin 14.1, Hematocrit 43, Mean Corpuscular Volume 84, Mean Corpuscular Hemoglobin 28, Mean Corpuscular Hemoglobin Concent 33, Red Cell Distribution Width 13.0, Platelet Count 358, Mean Platelet Volume 10.3, Immature Granulocyte % (Auto) 0, Neutrophils (%) (Auto) 59, Lymphocytes (%) (Auto) 32, Monocytes (%) (Auto) 6, Eosinophils (%) (Auto) 2, Basophils (%) (Auto) 1, Neutrophils # (Auto) 5.4, Lymphocytes # (Auto) 2.9, Monocytes # (Auto) 0.6, Eosinophils # (Auto) 0.2, Basophils # (Auto) 0.1, Immature Granulocyte # (Auto) 0.0, Erythrocyte Sedimentation Rate 24H, Sodium Level 137, Potassium Level 3.3L, Chloride Level 104, Carbon Dioxide Level 22, Anion Gap 11, Blood Urea Nitrogen 11, Creatinine 0.83, Estimat Glomerular Filtration Rate > 60, BUN/Creatinine Ratio 13, Glucose Level 89, Calcium Level 9.5, Corrected Calcium 9.4, Total Bilirubin 0.5, Aspartate Amino Transf (AST/SGOT) 22, Alanine Aminotransferase (ALT/SGPT) 25, Alkaline Phosphatase 88, Troponin I 0.031H, C-Reactive Protein High Sensitivity 0.41, Total Protein 7.6, Albumin 4.1, Serum Test, Qualitative NEGATIVE 05/16/21 12:05: D-Dimer 0.80H 05/16/21 13:14: Influenza Type A (RT-PCR) Not Detected, Influenza Type B (RT-PCR) Not Detected, SARS-CoV-2 RNA (RT-PCR) Not Detected 05/17/21 03:58: White Blood Count 6.1, Red Blood Count 4.62, Hemoglobin 12.8, Hematocrit 39, Mean Corpuscular Volume 84, Mean Corpuscular Hemoglobin 28, Mean Corpuscular H emoglobin Concent 33, Red Cell Distribution Width 13.2, Platelet Count 273, Mean Platelet Volume 10.6, Immature Granulocyte % (Auto) 0, Neutrophils (%) (Auto) 48, Lymphocytes (%) (Auto) 40, Monocytes (%) (Auto) 9, Eosinophils (%) (Auto) 3, Basophils (%) (Auto) 1, Neutrophils # (Auto) 2.9, Lymphocytes # (Auto) 2.4, Monocytes # (Auto) 0.6, Eosinophils # (Auto) 0.2, Basophils # (Auto) 0.1, Immature Granulocyte # (Auto) 0.0, Sodium Level 140, Potassium Level 3.8, Chloride Level 110H, Carbon Dioxide Level 22, Anion Gap 8, Blood Urea Nitrogen 10, Creatinine 0.71, Estimat Glomerular Filtration Rate > 60, BUN/Creatinine Ratio 14, Glucose Level 100, Calcium Level 9.1 Home Meds Active Reported Ibuprofen 200 Mg Tablet 400 Mg PO Q8H PRN Tylenol Extra Strength (Acetaminophen) 500 Mg Tablet 1,000 Mg PO Q8H PRN Medroxyprogesterone Acetate 150 Mg/1 Ml Syringe 150 Mg INJ EVERY 3 MONTHS Metoprolol Tartrate 25 Mg Tablet 25 Mg PO BID Hydrocodone-Acetamin 5-325 mg (Hydrocodone/Acetaminophen) 1 Each Tablet 1 Ea PO Q6H PRN Assessment/Pt DC Instructions Follow up on May 30 with Elizabeth Metzger at 1:20 pm. Discharge Diet: No Restrictions Activity as Tolerated: Yes (per Catheterization instructions) Discharge Physical Examination Allergies: Coded Allergies: No Known Drug Allergies (Unverified , 07/11/10) General Appearance: No Apparent Distress, WD/WN Respiratory: Lungs Clear, Normal Breath Sounds Cardiovascular: Regular Rate, Rhythm, No Murmur Gastrointestinal: Normal Bowel Sounds, Non Tender, Soft Extremity: No Pedal Edema Skin: Normal Color, Warm/Dry Neurologic/Psychiatric: Alert, Normal Mood/Affect Copy Copies To 1: Elizabeth Metzger Clinical Quality Measures AMI/AHF: ASA po Prior to arrival: MARY Chapa MD May 17, 2021 09:38
[2021-05-17] MEDS ORDERED: PANT40TA52 PO (09:39)
== END 2021-05-17 10:20 | disposition home or self-care (01) ==
LOC: EDUNIT# 11:41 → ER 11:45 → CSD 13:09 → UNDOADMIN 13:09 → CSD 13:09 → CATH 13:09 → UNDODISIN 05-17 10:20 → CATH 05-17 10:20
PROVIDERS: ATTEND Family Medicine
PROC: 4A023N7 Measurement of Cardiac Sampling and Pressure, Left Heart, Percutaneous Approach (ICD-10-PCS; principal; 2021-05-16)
PROC: B2111ZZ Fluoroscopy of Multiple Coronary Arteries using Low Osmolar Contrast (ICD-10-PCS; 2021-05-16)
DX: R07.89 Other chest pain (principal); Z68.42 Body mass index [BMI] 45.0-49.9, adult; R77.8 Other specified abnormalities of plasma proteins; I45.10 Unspecified right bundle-branch block; Z82.49 Family history of ischemic heart disease and other diseases of the circulatory system; Z20.822 Contact with and (suspected) exposure to COVID-19; R06.02 Shortness of breath; I25.10 Atherosclerotic heart disease of native coronary artery without angina pectoris; E66.9 Obesity, unspecified
CPT/HCPCS: 80048; 80053; 84484; 84703; 85025 ×2; 85379; 85652; 86141; 87636; 93005; 93458; 96372; 96374; 96375; 99284; C1760; C1894; 36415

== ENCOUNTER 2022-04-27 05:34 | Outpatient (CLI) | payer MEDICAID ==
[~2022-04-27] VITALS: Ht 172 cm; Wt 124.0 kg
[~2022-04-27 05:34] MED LIST changes: +ACET-2267 PO; +CYCL10TA25 PO; -CYCL10TA9 PO; +IBUP-2473 PO; +MEDR150D6 INJ; +METO-333 PO; +PANT40TA52 PO
[2022-04-28] MEDS ORDERED: BUPR150T9 PO (11:20)
[2022-04-28] MEDS ORDERED: SEMA1PEN3 SQ (11:20)
[2022-04-28] MEDS ORDERED: METF-397 PO (11:20)
== END 2022-04-28 11:28 | disposition home or self-care (01) ==
LOC: PREOP 05:34
PROVIDERS: ATTEND Obstetrics & Gynecology
DX: Z01.818 Encounter for other preprocedural examination (principal)

== ENCOUNTER 2022-05-04 11:37 | Day surgery (SDC) | payer MEDICAID ==
[~2022-05-04] VITALS: Ht 172 cm; Wt 124.0 kg
[2022-05-04] VITALS (8 sets, daily range): BP systolic 112–128; BP diastolic 73–90
--- NOTE | 2022-05-04 11:07 | Progress Note-Pre Operative ---
Pre-Operative Progress Note H&P Reviewed The H&P was reviewed, patient examined and no changes noted.However patient has asked specifically that her ovaries be removed. She complains of persistent pelvic pain with significant mittelschmerz. She does not want to have to deal with the pain and discomfort associated with ovulation and the ovarian cyst that she has had numerous times past. We did discuss the need for long-term hormone replacement therapy after menopause which will be induced with directly. He understands that and agrees and we will proceed with direct Date Seen by Provider: May 04, 2022 Time Seen by Provider: 12:23 Date H&P Reviewed: May 04, 2022 Time H&P Reviewed: 12:23 Pre-Operative Diagnosis: Menometrorrhagia/polycystic ovaries EPPE MARTINEZ MD May 04, 2022 11:07
--- NOTE | 2022-05-04 11:08 | Progress Note-Post Operative ---
Post-Operative Progess Note Surgeon (s)/Junior Qa Analyst (s) Surgeon PEPE MARTINEZ MD Junior Qa Analyst: [facility] Pre-Operative Diagnosis Menometrorrhagia/polycystic ovaries Post-Operative Diagnosis Same with pathology pending Procedure & Operative Findings Date of Procedure 05/04/22 Procedure Performed/Findings Total laparoscopic hysterectomy with bilateral Salpingo-oophorectomy Anesthesia Type General Estimated Blood Loss Estimated blood loss (mL): min Specimens/Packing Specimens Removed Uterus and fallopian tubes and ovaries PEPE MARTINEZ MD May 04, 2022 11:08
--- NOTE | 2022-05-04 11:09 | Discharge Inst-Surgical ---
Discharge Inst-Surgical Depart Medication/Instructions New, Converted or Re-Newed RX: Transmitted to Pharmacy Consults/Follow Up Patient Instructions: As directed Orders & Referrals Follow Up Appt: Return to clinic on Sunday, May 08, 2022 for staple removal Call to make follow up appt. for patient in 4 weeks. Activity: Rest for 24 hours, than as tolerated. Wound Care: May remove Band-Aid tomorrow. Replace as desired. Keep incisions clean and dry. Wash daily with soap and water. Prescription have been sent to patient's pharmacy from my office Diet: As tolerated may shower or tub bathe as desired. No driving for 24 hours, no alcoholic beverages for 24 hours, and nothing per vagina (no tampons, douching, or intercourse) for 8 weeks. Patient to return to the clinic as soon as possible for: Temperature greater than 101F, Severe Pain, Foul discharge from incision or vagina, Excessive Bleeding (more than a period). Activity Activity as Tolerated: No Diet Discharge Diet: No Restrictions PEPE MARTINEZ MD May 04, 2022 11:09
[~2022-05-04 11:37] MED LIST changes: +BUPR150T9 PO; +METF-397 PO; +SEMA1PEN3 SQ
[2022-05-04] MEDS: LACTATED RINGERS 1,000 ML IV PRN ×2 (11:40→13:00)
[2022-05-04] MEDS ORDERED: fentaNYL INJ 100 MCG/2 ML AMP IVP PRN (11:45)
[2022-05-04] MEDS ORDERED: D5 LR IV SOLUTION 1,000 ML IV SCH (11:45)
[2022-05-04] MEDS ORDERED: ONDANSETRON 4 MG/2 ML (SDV) Z0FRAN IVP PRN ×2 (11:45→14:00)
[2022-05-04] MEDS ORDERED: ceFAZolin INJECTION 1,000 MG VIAL IV ONE (11:45)
[2022-05-04] MEDS ORDERED: LIDOCAINE/EPI 2% 1:200,00 (XYLOCAINE) 10 ML VIAL ONE (12:03)
[2022-05-04] MEDS ORDERED: ONDANSETRON 4 MG/2 ML (SDV) Z0FRAN ONE (12:06)
[2022-05-04] MEDS ORDERED: proPOfol 200 MG/20 ML (DIPRIVAN) VIAL IV ONE (12:06)
[2022-05-04] MEDS ORDERED: SEVOFLURANE (ULTANE) 15 ML INHAL SOLN ONE ×2 (12:06→13:27)
[2022-05-04] MEDS ORDERED: fentaNYL INJ 100 MCG/2 ML AMP ONE (12:06)
[2022-05-04] MEDS ORDERED: MIDAZOLAM 2 MG/2 ML (VERSED) VIAL ONE (12:06)
[2022-05-04] MEDS ORDERED: LIDOCAINE PF 2% 5 ML (XYLOCAINE) VIAL ONE (12:06)
[2022-05-04 12:09] LABS: BASOPHILS # (AUTO) 0.1 10^3/uL (0.0-0.1); BASOPHILS % (AUTO) 1 % (0-10); EOSINOPHILS # (AUTO) 0.1 10^3/uL (0.0-0.3); EOSINOPHILS % (AUTO) 1 % (0-10); HEMATOCRIT 44 % (35-52); HEMOGLOBIN 14.8 g/dL (11.5-16.0); LYMPHOCYTES # (AUTO) 2.2 10^3/uL (1.0-4.0); LYMPHOCYTES % (AUTO) 29 % (12-44); MEAN CORPUSCULAR HEMOGLOBIN 28 pg (25-34); MEAN CORPUSCULAR HGB CONC 34 g/dL (32-36); MEAN CORPUSCULAR VOLUME 83 fL (80-99); MEAN PLATELET VOLUME 10.6 fL (9.0-12.2); MONOCYTES # (AUTO) 0.6 10^3/uL (0.0-1.0); MONOCYTES % (AUTO) 7 % (0-12); NEUTROPHILS # (AUTO) 4.8 10^3/uL (1.8-7.8); NEUTROPHILS % (AUTO) 62 % (42-75); PLATELET COUNT 332 10^3/uL (130-400); WHITE BLOOD COUNT 7.8 10^3/uL (4.3-11.0)
[2022-05-04] MEDS ORDERED: HYDROmorphone 2 MG/ML VIAL (DILAUDID) ONE (13:01)
[2022-05-04] MEDS ORDERED: GLYCOPYRROLATE 0.2 MG/ML (ROBINUL) 2 ML VIAL ONE (13:29)
[2022-05-04] MEDS ORDERED: NEOSTIGMINE 3 MG/3 ML VIAL ONE (13:29)
[2022-05-04] MEDS ORDERED: HYDROmorphone 2 MG/ML VIAL (DILAUDID) IV ONE (14:00)
[2022-05-04] MEDS ORDERED: WATER (STERILE) FOR INJECTION 10 ML ONE (14:02)
[2022-05-04] MEDS ORDERED: ESTROGENS CONJ INJECTION 5 ML ONE (14:02)
[2022-05-04] MEDS ORDERED: ESTROGENS CONJ INJECTION 25 MG in WATER (STERILE) FOR INJECTION 5 ML IV ONE (14:15)
[2022-05-04] MEDS: KETOROLAC 30 MG/ML VIAL IVP SCH ×2 (15:27→20:27)
[2022-05-04] MEDS: oxyCODONE/APAP 5/325MG (PERCOCET 5) TABLET PO PRN ×2 (17:38→22:05)
[2022-05-04] MEDS: DOCUSATE SODIUM 100 MG (COLACE) CAP PO SCH (20:27)
--- NOTE | 2022-05-04 23:22 | OPERATIVE REPORT ---
DATE OF SERVICE: 05/04/2022 PREOPERATIVE DIAGNOSES: Dysfunctional uterine bleeding/menorrhagia and history of ovarian cyst and pelvic pain. POSTOPERATIVE DIAGNOSES: Dysfunctional uterine bleeding/menorrhagia and history of ovarian cyst and pelvic pain. OPERATIVE PROCEDURE: Total laparoscopic hysterectomy with bilateral salpingo-oophorectomy. OPERATIVE DESCRIPTION: With the patient in the supine position under satisfactory general anesthesia, she was repositioned in dorsal lithotomy position in the [facility] and prepped and draped in the usual fashion for abdominal and vaginal surgery. Urinary bladder was drained via Nj catheter to dependent drainage. Weighted speculum placed in the posterior fornix of vagina, cervix exposed and grasped anteriorly with a single tooth tenaculum. Uterus was sounded to 9.5 cm with uterine sound. The cervix was then serially dilated with Jorge L dilators to accommodate a Tiffany II manipulator was placed using a 6 mm x 8 cm uterine probe and a 25 mm colpotomy ring. Sutures of #1 Vicryl were placed at 3 and 9 o'clock position of the cervix to affix the uterus to the manipulator. The patient was now brought in low dorsal lithotomy position, the tenaculum and speculum had been removed. A 12-mm incision was made 6 cm above the umbilicus. Veress needle was placed through that incision into the abdominal cavity. Correct placement confirmed with water drop test. The abdomen was insufflated to 2.4 liters of carbon dioxide. Veress needle was removed. A 12 mm Optiview laparoscopic port placed. Ports of 8 mm were placed through incisions of those sizes 8 cm lateral to the umbilicus and 2 cm above the umbilicus. All three port sites were infiltrated with 1% lidocaine with epinephrine prior to incision. The patient was now placed in Trendelenburg allowing the bowel to spill up out of the pelvis. The da Carmelita column was advanced on the patient, docked and operative instrument placed in right and left lateral ports and I retired to the da Carmelita console. At the console using a vessel sealer on the right arm and a bipolar fenestrated grasper on the left, the pelvis was first examined. Both ovaries were polycystic multicystic appearing. Both fallopian tubes were normal. The uterus was quite mottled in appearance consistent with adenomyosis. Both ureters were seemed to peristalse. Decision was made to proceed with the intended procedure that being TLH with BSO. The right fallopian tube and ovary were grasped and elevated. The mesovarium, was clamped, cauterized and divided with the vessel sealer. This continued across the mesovarium to the side of the uterus and down the broad ligament, across the round ligament and down onto the cardinal ligament. Same procedure performed on the left, thus allowing for removal of both tubes and ovaries eventually with the uterus. Anterior lower uterine segment peritoneum was divided using monopolar erica in place of the vessel sealer. Bladder was carefully dissected down off the lower uterine segment and colpotomy incision was started at 12 o'clock position onto the colpotomy ring. That incision was continued circumferentially until the entire colpotomy ring was exposed. Uterus was then freed and it was exposed, it was extracted through the vagina with the tubes and ovaries still attached. Vaginal cuff was closed with a single suture of V-Loc barbed suture starting from the right angle and continued to the left angle. Good hemostasis and good reapproximation and good secure movement of the uterine vessel pedicles was obtained. Sponge and needle counts correct now and hemostasis assured no remaining abnormal pathology. The procedure was terminated. The operative instruments were removed under direct vision as were the ports. The abdomen was evacuated of the insufflating gas and then the skin incision was closed with marisa after first closing the fascia at the supraumbilical incision with [id number] suture of 2-0 Vicryl. Speculum was replaced in the vagina. The vaginal cuff was examined. It was completely hemostatic and completely reapproximated. Procedure at this point was terminated. Sponge and needle counts were correct. Blood loss was minimal. The patient was uneventfully awakened from her general anesthesia and transferred to recovery room in stable condition. Job ID: [id number] DocumentID: [id number] Dictated Date: 05/04/2022 13:36:27 Manager Transmission Date: 05/04/2022 23:21:30 Dictated By: PEPE MARTINEZ MD
[2022-05-05 01:27] VITALS: BP 119/65
[2022-05-05] MEDS: KETOROLAC 30 MG/ML VIAL IVP SCH ×2 (01:27→06:37)
[2022-05-05] MEDS: oxyCODONE/APAP 5/325MG (PERCOCET 5) TABLET PO PRN ×2 (02:53→06:38)
[2022-05-05 04:00] VITALS: BP 116/70
[2022-05-05 08:30] VITALS: BP 116/73
--- NOTE | 2022-05-05 08:31 | Progress Note ---
Standard Progress Note Progress Notes/Assess & Plan Date Seen by a Provider: May 05, 2022 Time Seen by a Provider: 08:30 Progress/Assessment & Plan This patient is without complaint. She is ambulating, voiding, tolerating oral intake well and has good pain control. Vital Signs Date Time Temp Pulse Resp B/P (MAP) Pulse Ox O2 Delivery O2 Flow Rate FiO2 05/05/22 04:00 36.8 88 20 116/70 (85) 96 Room Air 05/05/22 01:27 37.2 95 20 119/65 (83) 96 Room Air 05/04/22 20:27 36.4 74 20 128/82 (97) 98 Room Air 05/04/22 18:00 Room Air 05/04/22 15:14 Room Air 05/04/22 15:00 36.7 79 20 116/73 (87) 96 Room Air 05/04/22 15:00 Room Air 05/04/22 14:30 36.8 18 112/79 (90) 96 Room Air 05/04/22 14:30 Room Air 05/04/22 14:20 18 120/83 (95) 96 OxyMask 0.5 05/04/22 14:18 OxyMask 0.5 05/04/22 14:10 20 100 OxyMask 1 05/04/22 14:10 OxyMask 1 05/04/22 14:00 18 124/89 (101) 100 OxyMask 5 05/04/22 13:55 OxyMask 8 05/04/22 13:50 19 123/88 (100) 100 OxyMask 8 05/04/22 13:41 OxyMask 8 05/04/22 13:41 36.9 12 122/90 (101) 100 OxyMask 8 05/04/22 11:50 37.0 88 20 128/81 (97) 98 Room Air I & O 05/05/22 07:00 Intake Total 3190 ml Output Total 1705 ml Balance 1485 ml Vital signs are stable. Patient is afebrile. The abdomen is benign. Pelvic exam was deferred. Extremities show no clubbing or cyanosis. There is no Homans' sign. Assessment and plan Postoperative day #1 status post total laparoscopic hysterectomy with bilateral salpingo-oophorectomy. Plan is for discharge home with follow-up in clinic Final Diagnosis Menometrorrhagia history of polycystic ovary MICHELLE,PEPE G MD May 05, 2022 08:31
[2022-05-05] MEDS ORDERED: ESTR2TAB4 PO (08:33)
[2022-05-05] MEDS: DOCUSATE SODIUM 100 MG (COLACE) CAP PO SCH (08:34)
[2022-05-05] MEDS ORDERED: DOCUSATE SODIUM 100 MG (COLACE) CAP PO SCH (09:00)
[2022-05-05] MEDS ORDERED: ONDANSETRON 4 MG/2 ML (SDV) Z0FRAN IVP PRN (11:45)
--- NOTE | 2022-05-05 13:05 | Anesthesia-General Post-Op ---
General Patient Condition Mental Status/LOC: Same as Preop Cardiovascular: Satisfactory Nausea/Vomiting: Absent Respiratory: Satisfactory Pain: Controlled Complications: Absent Post Op Complications Complications None Follow Up Care/Instructions Patient Instructions None needed. Anesthesia/Patient Condition Patient Condition Patient is doing well, no complaints, stable vital signs, no apparent adverse anesthesia problems. No complications reported per nursing. PURVI LIN CRNA May 05, 2022 13:05
[2022-05-05] MEDS ORDERED: IBUPROFEN 800 MG (MOTRIN) TAB PO SCH (15:30)
== END 2022-05-05 09:15 | disposition home or self-care (01) ==
LOC: SDC 11:37 → WS 15:05 → SDC 05-05 09:15
PROVIDERS: ATTEND Obstetrics & Gynecology
DX: N83.202 Unspecified ovarian cyst, left side (principal); N83.201 Unspecified ovarian cyst, right side; N83.8 Other noninflammatory disorders of ovary, fallopian tube and broad ligament; N72 Inflammatory disease of cervix uteri; E66.01 Morbid (severe) obesity due to excess calories; I10 Essential (primary) hypertension; Z68.41 Body mass index [BMI] 40.0-44.9, adult
CPT/HCPCS: 36415; 84703; 85025; 87081; 94664

== ENCOUNTER 2022-10-20 04:43 | Emergency (ER) | payer MEDICAID ==
[~2022-10-20 04:43] MED LIST changes: +ESTR2TAB4 PO
[2022-10-20] MEDS ORDERED: KETOROLAC 60 MG/2 ML VIAL IM STA (04:58)
--- NOTE | 2022-10-20 05:40 | ED Cough/URI ---
General Chief Complaint: Cough/Cold/Flu Symptoms Stated Complaint: CONGESTION Nursing Triage Note: Pt complaining of nasal congestion, dizziness, and vomiting that started 4 days ago. Source: patient History of Present Illness Date Seen by Provider: Oct 20, 2022 Time Seen by Provider: 04:47 Initial Comments 32-year-old female presenting for congestion and dizziness. She stated that this started approximately 4 days ago. She also has a daughter that was melody gnosed with influenza A 4 days ago. She has similar symptoms and thought that she just had a sinus infection. However she has been using [id number] sinus medicine without any improvement. She was scheduled to go to work this morning and was feeling so bad she came to the emergency department. Severity/Quality: severe Prior Episodes/Possible Cause: occasional episodes Modifying Factors: Worse With Lying Down Associated Symptoms: chest pain/soreness, cough, dizziness, earache, facial pain, fever/chills, headache, lightheadedness, muscle aches, nasal congestion, nasal drainage, shortness of breath, sinus infection, sore throat Allergies and Home Medications Allergies Coded Allergies: No Known Drug Allergies (Unverified , 07/11/10) Patient Home Medication List Home Medication List Reviewed: Yes Bupropion HCl (Wellbutrin Sr) 150 Mg Tablet.er, 150 MG PO DAILY, (Reported) Entered as Reported by: SCOTT QUIROZ on 04/28/22 112 Estradiol (Estrace Tablet) 2 Mg Tablet, 2 MG PO DAILY Prescribed by: PEPE RAPP on 05/05/22 0833 Metformin HCl (Metformin HCl) 500 Mg Tablet, 500 MG PO DAILY, (Reported) Entered as Reported by: SCOTT QUIROZ on 04/28/221119 Prednisone (Prednisone) 20 Mg Tab, 40 MG PO DAILY Prescribed by: LUIS CLARK on 10/20/22 0549 Semaglutide (Ozempic) 1 Mg/0.75 Ml (4 Mg/3 Ml) Pen.injctr, 1 MG SQ WEEKLY, (Reported) Entered as Reported by: SCOTT QUIROZ on 04/28/221119 Review of Systems Review of Systems Constitutional: see HPI, chills, fever EENTM: see HPI Respiratory: see HPI Cardiovascular: no symptoms reported Gastrointestinal: vomiting (this morning) Genitourinary: no symptoms reported Musculoskeletal: see HPI Skin: No rash Psychiatric/Neurological: See HPI Past Gcicppg-Oknyjq-Saeaxh Hx Patient Social History Tobacco Use?: No Use of E-Cig and/or Vaping dev: No Substance use?: No Alcohol Use?: No Immunizations Up To Date Tetanus Booster (TDap): Unknown PED Vaccines UTD: No Seasonal Allergies Seasonal Allergies: No Past Medical History Surgeries: Yes (LEFT SHOULDER X2, X 4, MASS REMOVED FROM LEFT SIDE OF JAW) Adenoidectomy, Appendectomy, Section, Orthopedic, Tonsillectomy Respiratory: No Currently Using CPAP: No Currently Using BIPAP: No Cardiac: No Neurological: No Reproductive Disorders: No Female Reproductive Disorders: Denies CAR ICER History: IUD Sexually Transmitted Disease: Yes (CHLAMYDIA 2009, Gonnerhea 2011, ) HIV/AIDS: No Genitourinary: No Gastrointestinal: No Musculoskeletal: Yes (LEFT SHOULDER PROBLEMS) Arthritis Endocrine: No HEENT: No Cancer: No Psychosocial: Yes Depression Integumentary: No Blood Disorders: No Adverse Reaction/Blood Tranf: No Family Medical History Diabetes mellitus 19 FATHER 19 MOTHER Hypertension 19 MOTHER Diabetes, Hypertension Reports third cousin recently unexpectedly in early 30s Physical Exam Vital Signs - First Documented 10/20/22 04:48 Temp 37.7 Pulse 128 Resp 18 B/P (MAP) 129/93 (105) Pulse Ox 100 O2 Delivery Room Air Capillary Refill : Less Than 3 Seconds Height: 5'8.00" Weight: 347lbs. 2.0oz. 157.096742us; 41.91 BMI Method:Stated General Appearance: WD/WN, mild distress (appears to not feel well) HEENT: PERRL/EOMI, TMs normal, pharyngeal erythema; No tonsillar exudate; other (sinus pressure) Neck: non-tender, full range of motion, supple, lymphadenopathy (R), lymphadenopathy (L) Respiratory: chest non-tender, lungs clear, normal breath sounds, no respiratory distress, no accessory muscle use Cardiovascular: normal peripheral pulses, tachycardia Extremities: normal range of motion, non-tender, normal capillary refill Neurologic/Psychiatric: alert, oriented x 3 Skin: normal color, warm/dry Progress/Results/Core Measures Suspected Sepsis SIRS Temperature: Pulse: 128 Respiratory Rate: 18 Blood Pressure 129 /93 Mean: 105 Results/Orders Lab Results Laboratory Tests Test 10/20/22 04:50 Range/Units Influenza Type A (RT-PCR) Detected H Not Detecte Influenza Type B (RT-PCR) Not Detected Not Detecte SARS-CoV-2 RNA (RT-PCR) Not Detected Not Detecte My Orders Orders - LUIS CLARK MD Covid 19 Inhouse Test (10/20/22 04:58) Influenza A And B By Pcr (10/20/22 04:58) Ketorolac Injection (Toradol Injection) (10/20/22 04:58) Prednisone Tablet (Deltasone Tablet) (10/20/22 05:44) Vital Signs/I&O 10/20/22 04:48 Temp 37.7 Pulse 128 Resp 18 B/P (MAP) 129/93 (105) Pulse Ox 100 O2 Delivery Room Air Capillary Refill : Less Than 3 Seconds Blood Pressure Mean: 105 Progress Note #1: Progress Note Since her daughter has influenza A she likely has a virus as well. Patient still requested to have testing performed. Since she is 4 days into her symptoms she is outside of the abdomen treatment window to start Tamiflu. Encourage fluids and rest. Progress Note #2: Progress Note COVID is negative but influenza was positive for A. Counseled on symptomatic care and treatment. Patient declined Tamiflu since that would not help much. Advised to quarantine until she was fever free without having to use medication. We will try a steroid burst to see if it helps with some of the sinus pressure and congestion. Mucinex would also help with her congestion. Departure Impression Primary Impression: Influenza A Additional Impression: Viral syndrome Disposition: 01 HOME, SELF-CARE Condition: Stable Departure-Patient Inst. Decision time for Depature: 05:39 Referrals: NO,LOCAL PHYSICIAN (PCP) Primary Care Physician ANSLEY COSTELLO APRN (Family) Primary Care Physician Patient Instructions: Flu, Adult ED, Upper Respiratory Infection ED Add. Discharge Instructions: Stay well-hydrated and drink plenty of fluids. Try to get plenty of rest. Use ibuprofen alternating with acetaminophen for fever and body aches. Try Mucinex over the counter to help with sinus pressure and congestion Use a humidifier at the bedside while you are sleeping to help with congestion and cough. You should quarantine and wear mask until you are fever free for 24 hours without having to use medications. All discharge instructions reviewed with patient and/or family. Voiced understanding. Scripts Prednisone (Prednisone) 20 Mg Tab 40 MG PO DAILY for sinus pressure for 4 Days, #8 TAB 0 Refills Prov: LUIS CLARK MD 10/20/22 Work/School Note: Work Release Form Date Seen in the Emergency Department: Oct 20, 2022 Return to Work: Oct 23, 2022 Restrictions: Return-No Fever (24hrs) LUIS CLARK MD Oct 20, 2022 05:40
[2022-10-20] MEDS ORDERED: predniSONE 20 MG TAB PO STA (05:44)
[2022-10-20] MEDS ORDERED: PRD20T PO (05:49)
[2022-10-20 05:50] VITALS: BP 129/93
== END 2022-10-20 05:51 | disposition home or self-care (01) ==
LOC: EDUNIT# 04:43 → ER FS 04:45
DX: J10.1 Influenza due to other identified influenza virus with other respiratory manifestations (principal); B34.9 Viral infection, unspecified; Z28.310 Unvaccinated for COVID-19; Z20.822 Contact with and (suspected) exposure to COVID-19
CPT/HCPCS: 87636; 99284